=== PATIENT | female | born 1975 | race Caucasian/White ===

== ENCOUNTER 2019-12-21 12:35 | Outpatient (CLI) | payer BC, SELFPAY ==
--- NOTE | ~2019-12-21 | CT_ITS ---
EXAMINATION: CT abdomen pelvis w con EXAM DATE: 12/21/2019 13:19 INDICATION: Lower abdominal pain. TECHNIQUE: Spiral CT of the abdomen and pelvis was performed following intravenous injection of 100 m L Omnipaque 350. Axial, coronal and sagittal images were reviewed. The dose-length product (DLP) fo r this examination was 776.21 mGy-cm. The exposure was tailored according to patient size (auto mA e xposure control), and iterative reconstruction (ASIR) was used as additional dose reduction technique . There is no prior study for comparison. FINDINGS: The liver, spleen, adrenal glands and pancreas are unremarkable. There are cholecystectomy clips. Portal and splenic veins are patent. Kidneys enhance symmetrically. There is no hydronephr osis. The uterus is not identified and has likely been surgically resected. The bladder is unremar kable. There is no retroperitoneal or pelvic lymphadenopathy. Small umbilical fat-containing herni a. The appendix is normal. There is small to moderate-sized gastroesophageal hiatal hernia. There is e xpected amount of colonic stool. No free intraperitoneal gas. The heart is normal in size. There are no pericardial or pleural effusions. The lung bases are unremarkable. The bones are unremarkab le. IMPRESSION: 1. No acute intra-abdominal findings. 2. Small to moderate hiatal hernia. 3. Small umbilical fat-containing hernia. Reviewed, dictated and finalized at location B.
== END 2019-12-21 12:36 | disposition home or self-care (01) ==
LOC: ANHIMG 12:41
PROVIDERS: PCP Internal Medicine; Visit Provider Internal Medicine
DX: K44.9 Diaphragmatic hernia without obstruction or gangrene (principal); K42.9 Umbilical hernia without obstruction or gangrene
CPT/HCPCS: 74177; Q9967

== ENCOUNTER 2021-02-26 09:00 | Outpatient (RCR) | payer BC, SELFPAY ==
--- NOTE | 2021-01-21 11:33 | PTOPEVAL ---
PHYSICAL THERAPY EVALUATION AND PLAN OF CARE 01-21-21 Thank you for referring Tiesha Byrnes to [facility].? She is scheduled to be seen for therapy? 3 x/week for 5 weeks. Please review, sign, date and return this plan of care DORENE. I agree with and certify that the following plan of care is medically necessary. Referring Physician Date Attending Provider: Hermes Johnson MD PT Outpatient Evaluation Document 01/21/21 10:25 JORY (Rec: 01/21/21 11:33 JORY [id number]) Outpatient Past Medical History Past Medical History Source of Past Medical History Patient Neurological History Hx Neurological Disorders No Significant History Cardiovascular History Hx Hypercholesterolemia Yes: on meds Respiratory History Hx Respiratory Disorders No Significant History Gastrointestinal History Hx Cholecystectomy Yes Genitourinary History Hx Genitourinary Disorders No Significant History Musculoskeletal History Hx Musculoskeletal Disorders No Significant History Endocrine History Hx Endocrine Disorders No Significant History HEENT History Hx HEENT Disorders No Significant History Reproductive History Hx Other Reproductive Disorders Yes: hysterectomy Other History Hx Other Medical Conditions Yes: have had COVID vaccine;wt gain about 20# past yr Evaluation Information Problem Diagnosis lipedema/lymphedema of B LE's Onset few years ago Prior Level of Function Activity Level (Last 3 Months) Occupation working from home, computer work Cooking Yes Cleaning Yes Laundry Yes Shopping Yes Driving Yes Comments Additional Prior Level of Function is doing all home, work and Comments self care tasks; active lifestyle-- likes to boat, camp, be outdoors; have started rebounding about one week ago, doing 10 minutes at time; Pain Assessment Timing of Pain Assessment Timing of Pain Assessment Assessment Pain Scale Pain Scale Used Numeric (1 - 10) Self Report Pain Assessment Bilateral Leg(s) Reported Pain Level 6 Pain Description Aching,Heavy Pain Frequency Continuous Lowest Pain Intensity 6 Greatest Pain Intensity 6 Pain Score Pain Score 6: Self Report Interventions Used Interventions Used By Clinicians Education Lower Extremity Range of Motion General Lower Extremity Range of Motion Reason Not Measured WNL/Left,WNL/Right Lower Extremity Muscle Strengt
--- NOTE | 2021-02-26 09:48 | PTOPEVAL ---
PHYSICAL THERAPY RE-EVALUATION AND UPDATED PLAN OF CARE 02-26-21 Refer to the clinical summary below, for her status today, compared to the initial evaluation. The goals have been achieved. Education has been completed--she is independent with her home exercises and self manual lymph drainage. She has a home intermittent compression pump/ Flexitouch unit. The custom panty hose compression garment has not arrived yet. She is currently wearing R and L thigh high compression garments, 20-30 mmHg. The plan of treatment is set for 0-1x/week for 4 weeks. When the custom garment arrives, she is to contact PT for an additional appointment if there are any concerns or issues with it. Or she may call if there are any questions that can be addressed on the phone. Thank you for referring Tiesha Byrnes to [facility] [place] [facility] [place] Please review, sign, date and return this updated plan of care DORENE. I agree with and certify that the following plan of care is medically necessary. Referring Physician Date Attending Provider: Hermes Johnson MD Document 02/26/21 09:00 JORY (Rec: 02/26/21 09:37 JORY [id number]) Assessment Status Re-evaluation Subjective Information Tiesha reports: expect her Query Text:As Reported By Patient/ custom garment to be here in Family the next few days or so; using home pump daily and doing self massage; using thigh high garments on legs; doing home exercises, rebounder and exercise bicycle; feel like legs are less swollen; to have vein surgery in May on both legs; Pain Assessment Timing of Pain Assessment Timing of Pain Assessment Assessment Pain Scale Pain Scale Used Numeric (1 - 10) Self Report Pain Assessment Bilateral Leg(s) Reported Pain Level 3 Pain Description Heavy Pain Frequency Chronic,Continuous Lowest Pain Intensity 3 Greatest Pain Intensity 3 Pain Score Pain Score 3: Self Report Interventions Used Interventions Used By Clinicians Education Lymphedema Evaluation Skin Inspection Location Left Lower Extremity,Right Lower Extremity Skin Observations Lipedema Palpation Findings Warm Skin Temperature,Non- Pitting Edema Tissue Texture Normal Lymphedema Stage I Skin Inspection Comment both legs with small, light bruising throughout legs; no edema over dorsum of feet-- has been wearing tennis shoes with laces to have some compression; skin moist and
--- NOTE | 2021-04-01 13:21 | PCPTNOTE ---
PHYSICAL THERAPY DISCHARGE 04-01-21 Attending Provider: Hermes Johnson MD Patient:Tiesha Byrnes Date of :1975 Mrs. Byrnes has not called for any further needs since the reevaluation on 02/26/2021, therefore she will be discharged at this time. Refer to that report for her discharge status. Thank you for referring Tiesha to [facility]. Please review, sign, date and return this discharge summary DORENE. I have been updated about the patient's current status and I agree with discharge from the above service at this time. Referring Physician Date
== END 2021-04-07 11:15 | disposition home or self-care (01) ==
LOC: ANHPT 09:00
PROVIDERS: PCP Internal Medicine
DX: E88.2 Lipomatosis, not elsewhere classified (principal)
CPT/HCPCS: 29581; 97110; 97140; 97161

== ENCOUNTER 2021-07-15 01:17 | Day surgery (SDC) | payer BC, SELFPAY ==
[2021-07-04 13:31] VITALS: BMI 34.8
[2021-07-15 08:36] VITALS: BP 125/82; PULSE 96; RESP 20; TEMP 36.8; O2SAT 98; BMI 34.1
[2021-07-15] MEDS: LACTATED RINGERS 1,000 ML 150 ML IV CONT (08:42)
--- NOTE | 2021-07-15 09:08 | WPDGICN ---
Assessment and Plan Assessment and plan (1) Encounter for screening colonoscopy: Code(s): Z12.11 - Encounter for screening for malignant neoplasm of colon Status: Acute Assessment and Plan: Patient presents for neoplasia screening. She appears to be at average risk for colon polyps. Further recommendations will be given after endoscopy. GI Consult Note Consult date/time: 07/15/21 09:08 HPI: Tiesha Byrnes is a 46 year old female Presents for screening colonoscopy. Patient's current weight appetite bowel movements are normal. She denies abdominal pain. She has had bleeding. Family history noncontributory. Review of Systems Review of Systems: All systems reviewed & are unremarkable except as noted in HPI and below PMFSH Family History Family History (Updated 11/29/15 @ 23:21 by DOCTOR UNKNOWN) Mother Family history of osteoporosis Patient's mother is in good health Family history of malignant neoplasm of ovary, Onset Age: 36 Family history of lupus erythematosus Grandparent Hypertension Father Family history of eczema Patient's father is in good health Sibling Patient's sister is in good health Family history of allergic disorder Social History Social History Smoking status: Never smoker Alcohol intake: never Substance use: never Living arrangements: with family Spiritual care concerns: No Meds Home Medications and Allergies Home Medications Medication Instructions Recorded Confirmed Type L.acidop,madeleine,lac,rha-B.lac,mariam 1 cap PO DAILY 07/04/21 07/04/21 History [Advanced Probiotic] cetirizine [Zyrtec] 5 mg PO DAILY 07/04/21 07/04/21 History cranberry fruit concentrate [Azo 250 mg PO TID 07/04/21 07/04/21 History Cranberry] rosuvastatin 20 mg PO DAILY 07/04/21 07/04/21 History Allergies Allergy/AdvReac Type Severity Reaction Status Date / Time No Known Allergies Allergy Unknown Verified 07/15/21 08:34 Vital Signs Vital Signs - 24 hr 07/15/21 08:36 Temperature 98.3 F Pulse Rate 96 Respiratory Rate 20 Blood Pressure 125/82 Pulse Oximetry 98 Exam Narrative: Physical exam reveals patient to be alert. Vital signs stable. HEENT exam is unremarkable. Patient is anicteric. Lungs are clear to auscultation and percussion. Heart is without murmur or extra sounds. Abdomen bowel sounds present soft nontender with no organomegaly. Digital external rectal exam normal.
--- NOTE | 2021-07-15 09:44 | WPDANESEPPF ---
Anes - Initial Pre Proc Eval Procedure: Operation Date: 07/15/21 10:00 Proposed Procedures p Screening Colonoscopy - Abelino Celaya MD Date/Time: 07/15/21 09:44 Surgeon: Abelino Celaya MD Pre Op Diagnosis: neoplasm screening Patient Data Age: 46 Gender: F Height: 1.65 m Weight: 93 kg Last Vital Signs Temp 98.3 F 07/15/21 08:36 Pulse 96 07/15/21 08:36 Resp 20 07/15/21 08:36 BP 125/82 07/15/21 08:36 Pulse Ox 98 07/15/21 08:36 Allergies Allergy/AdvReac Type Severity Reaction Status Date / Time No Known Allergies Allergy Unknown Verified 07/15/21 08:34 Home Medications Medication Instructions Recorded Confirmed Type L.acidop,madeleine,lac,rha-B.lac,mariam 1 cap PO DAILY 07/04/21 07/04/21 History [Advanced Probiotic] cetirizine [Zyrtec] 5 mg PO DAILY 07/04/21 07/04/21 History cranberry fruit concentrate [Azo 250 mg PO TID 07/04/21 07/04/21 History Cranberry] rosuvastatin 20 mg PO DAILY 07/04/21 07/04/21 History Patient hx anesthesia problems: none Family hx anesthesia problems: none Results Review: All pre-operative results and documents have been reviewed as part of the pre-operative evaluation. [facility] Family History Family History (Updated 11/29/15 @ 23:21 by DOCTOR UNKNOWN) Mother Family history of osteoporosis Patient's mother is in good health Family history of malignant neoplasm of ovary, Onset Age: 36 Family history of lupus erythematosus Grandparent Hypertension Father Family history of eczema Patient's father is in good health Sibling Patient's sister is in good health Family history of allergic disorder Social History Social History Smoking status: Never smoker Alcohol intake: never Substance use: never Living arrangements: with family Spiritual care concerns: No Anes - Eval Final PreProcedure Day of Procedure 07/15/21 09:44 Results Review: All pre-operative results and documents have been reviewed as part of the pre-operative evaluation. Informed Consent: The patient's anesthetic plan and its attendant risks and benefits were discussed with the patient/family/POA. Questions were solicited and answers provided to the satisfaction of the patient/family/POA.
[2021-07-15 10:04] VITALS: BP 112/65; PULSE 78; RESP 17; O2SAT 100
[2021-07-15 10:14] VITALS: BP 113/69; PULSE 67; RESP 14; O2SAT 100
[2021-07-15 10:24] VITALS: BP 120/81; PULSE 59; RESP 20; O2SAT 100
== END 2021-07-15 10:28 | disposition home or self-care (01) ==
PROVIDERS: PCP Internal Medicine; Visit Provider Internal Medicine Gastroenterology
PROC: 0DJD8ZZ Inspection of Lower Intestinal Tract, Via Natural or Artificial Opening Endoscopic (ICD-10-PCS; CPT 45378; principal; 2021-07-15 10:00)
DX: Z12.11 Encounter for screening for malignant neoplasm of colon (principal); K64.8 Other hemorrhoids
CPT/HCPCS: 45378; J2704; J7120

== ENCOUNTER 2023-06-22 08:57 | Outpatient (CLI) | payer BC, SELFPAY ==
[2023-06-25 04:07] LABS: FSH 9.5 mIU/mL (***)
== END 2023-06-22 08:58 | disposition home or self-care (01) ==
LOC: ANHLAB 09:01
PROVIDERS: PCP Internal Medicine; Visit Provider Obstetrics & Gynecology
DX: R23.2 Flushing (principal); R45.86 Emotional lability; R68.89 Other general symptoms and signs
CPT/HCPCS: 36415; 83001

== ENCOUNTER 2023-07-07 09:59 | Outpatient (CLI) | payer BC, SELFPAY ==
[2023-07-13 20:52] LABS: Estradiol, Ultrasensitive 107 pg/mL
== END 2023-07-07 10:00 | disposition home or self-care (01) ==
LOC: ANHLAB 10:00
PROVIDERS: PCP Internal Medicine; Visit Provider Obstetrics & Gynecology
DX: R23.2 Flushing (principal); R45.86 Emotional lability; R68.89 Other general symptoms and signs
CPT/HCPCS: 36415; 82670

== ENCOUNTER 2023-08-06 09:39 | Outpatient (CLI) | payer BC, SELFPAY ==
[2023-08-06 10:41] LABS: Creatinine Urine 33.4 mg/dL; Total Protein Urine Random 12 mg/dL; Ur Ttl Prot Creatinine Ratio 0.36 mg/mg (0-0.20)
[2023-08-06 10:56] LABS: Albumin Level 4.1 g/dL (3.5-5.1); Anion Gap 5 mmol/L (4-12); Blood Urea Nitrogen 12 mg/dL (7-17); Carbon Dioxide 26 mmol/L (22-30); Chloride 104 mmol/L (98-107); Estimated Glomerular Filt Rate > 60; Glucose 90 mg/dL (65-110); Phosphorus 2.9 mg/dL (2.5-4.5); Potassium 3.7 mmol/L (3.4-5.0); Sodium 135 mmol/L (137-145)
[2023-08-06 11:57] LABS: Complement C3 123 mg/dL (88-165)
[2023-08-10 10:35] LABS: Anti Glomerular Basement Memb <1.0 AI (<1.0)
[2023-08-10 10:48] LABS: Albumin 3.7 g/dL (3.8-4.8); Alpha 1 Globulin 0.3 g/dL (0.2-0.3); Alpha 2 Globulin 0.8 g/dL (0.5-0.9); Beta 1 Globulin 0.4 g/dL (0.4-0.6); Gamma Globulin 0.8 g/dL (0.8-1.7); Protein, Total 6.3 g/dL (6.1-8.1)
[2023-08-10 21:51] LABS: ANCA Screen Negative (Negative)
[2023-08-11 13:55] LABS: Creatinine, Random Urine 36 mg/dL (20-275); Total Protein/Creatinine Ratio 139 mg/g creat (24-184)
[2023-08-12 19:04] LABS: Anti Nuclear Antibody Pattern Nuclear, Speckled
== END 2023-08-06 09:40 | disposition home or self-care (01) ==
LOC: ANHLAB 09:40
PROVIDERS: PCP Internal Medicine; Visit Provider Internal Medicine Nephrology
DX: R79.89 Other specified abnormal findings of blood chemistry (principal)
CPT/HCPCS: 36415; 80069; 82570; 83520; 84155; 84156; 84165; 84166; 86036; 86038; 86039; 86160; 86225

== ENCOUNTER 2023-10-07 10:10 | Outpatient (CLI) | payer BC, SELFPAY ==
--- NOTE | ~2023-10-07 | XR_ITS ---
Left Knee Technique: AP and lateral views were obtained. Clinical History: Arthritis Findings: No fracture or dislocation is seen. Osseous alignment is anatomic. Minimal medial joint jt e spurring noted. Soft tissues are unremarkable. No joint effusion is seen. Impression: Minimal degenerative spurring, as above. Reviewed, dictated and finalized at location . Impression: Minimal degenerative spurring, as above.
--- NOTE | ~2023-10-07 | XR_ITS ---
Right Knee Technique: AP and lateral views were obtained. Clinical History: Arthritis Findings: No fracture or dislocation is seen. Osseous alignment is anatomic. Joint spaces are preserv ed without degenerative or erosive change. Nonspecific soft tissue calcifications are present at the anteromedial aspect of the proximal calf. No joint effusion is seen. Impression: No osseous or articular abnormality. Nonspecific soft tissue calcifications at the anteromedial aspect of the proximal calf. Correlate cli nically for underlying mass lesion. Consider additional dedicated imaging and physical examination to further evaluate. Reviewed, dictated and finalized at location M. Impression: No osseous or articular abnormality. Nonspecific soft tissue calcifications at the anteromedial aspect of the proxim al calf. Correlate clinically for underlying mass lesion. Consider additional d edicated imaging and physical examination to further evaluate.
--- NOTE | ~2023-10-07 | XR_ITS ---
Left ankle Technique: AP and lateral views were obtained. Clinical History: Arthritis Findings: No acute fracture or dislocation is seen. Osseous alignment is anatomic. Ankle mortise and other visualized joint spaces are preserved. Soft tissues are otherwise unremarkable. Impression: Unremarkable left ankle. Reviewed, dictated and finalized at location . Impression: Unremarkable left ankle.
--- NOTE | ~2023-10-07 | XR_ITS ---
Right Shoulder Technique: AP and axillary views were obtained. Clinical History: Arthritis Findings: No fracture or dislocation is seen. Osseous alignment is anatomic. The glenohumeral and acr omioclavicular joint spaces are preserved. Soft tissues are unremarkable. Impression: Unremarkable right shoulder radiographs. Reviewed, dictated and finalized at [facility]. Impression: Unremarkable right shoulder radiographs.
--- NOTE | ~2023-10-07 | XR_ITS ---
AP and lateral views of the right hip Clinical history: Pain Findings: No acute fracture or dislocation is seen. Osseous alignment is anatomic. The right hip join t is preserved. Soft tissues are unremarkable. Impression: No significant abnormality is seen. Reviewed, dictated and finalized at location . Impression: No significant abnormality is seen.
--- NOTE | ~2023-10-07 | XR_ITS ---
Right elbow Technique: AP and lateral views were obtained. Clinical History: Arthritis Findings: No acute fracture or dislocation is seen. Osseous alignment is anatomic. Joint spaces are p reserved. There is no displacement of the fat pads, and soft tissues are unremarkable. Impression: Unremarkable radiographs. Reviewed, dictated and finalized at location . Impression: Unremarkable radiographs.
--- NOTE | ~2023-10-07 | XR_ITS ---
Left Hand Technique: PA and lateral views were obtained. Clinical History: Arthritis Findings: No acute fracture or dislocation is seen. Osseous alignment is anatomic. Joint spaces are p reserved. Soft tissues are unremarkable. Impression: Unremarkable left hand. Reviewed, dictated and finalized at location M. Impression: Unremarkable left hand.
--- NOTE | ~2023-10-07 | XR_ITS ---
AP and lateral views of the left hip Clinical history: Pain Findings: No acute fracture or dislocation is seen. Osseous alignment is anatomic. Left hip joint is preserved. Soft tissues are unremarkable. Impression: No significant abnormality is seen. Reviewed, dictated and finalized at location . Impression: No significant abnormality is seen.
--- NOTE | ~2023-10-07 | XR_ITS ---
Right ankle Technique: AP and lateral views were obtained. Clinical History: Arthritis Findings: No acute fracture or dislocation is seen. Osseous alignment is anatomic. Ankle mortise and other visualized joint spaces are preserved. Soft tissues are otherwise unremarkable. Impression: Unremarkable right ankle. Reviewed, dictated and finalized at location . Impression: Unremarkable right ankle.
--- NOTE | ~2023-10-07 | XR_ITS ---
Left Shoulder Technique: AP and axillary views were obtained. Clinical History: Arthritis Findings: No fracture or dislocation is seen. Osseous alignment is anatomic. The glenohumeral and acr omioclavicular joint spaces are preserved. Soft tissues are unremarkable. Impression: Unremarkable left shoulder radiographs. Reviewed, dictated and finalized at [facility]. Impression: Unremarkable left shoulder radiographs.
--- NOTE | ~2023-10-07 | XR_ITS ---
Left wrist Technique: PA and lateral views were obtained. Clinical History: Arthritis Findings: No acute fracture or dislocation is seen. Osseous alignment is anatomic. Joint spaces are p reserved. Soft tissues are unremarkable. Impression: Unremarkable left wrist radiographs. Reviewed, dictated and finalized at location M. Impression: Unremarkable left wrist radiographs.
--- NOTE | ~2023-10-07 | XR_ITS ---
Right foot Technique: AP and lateral views were obtained. Clinical History: Arthritis Findings: No acute fracture or dislocation is seen. Osseous alignment is anatomic. Joint spaces are p reserved without erosive or degenerative change. Soft tissues are unremarkable. Impression: Unremarkable right foot radiographs. Reviewed, dictated and finalized at location . Impression: Unremarkable right foot radiographs.
--- NOTE | ~2023-10-07 | XR_ITS ---
Right wrist Technique: PA and lateral views were obtained. Clinical History: Arthritis Findings: No acute fracture or dislocation is seen. Osseous alignment is anatomic. Joint spaces are p reserved. Soft tissues are unremarkable. Impression: Unremarkable right wrist radiographs. Reviewed, dictated and finalized at location M. Impression: Unremarkable right wrist radiographs.
--- NOTE | ~2023-10-07 | XR_ITS ---
Right Hand Technique: PA and lateral views were obtained. Clinical History: Arthritis Findings: No acute fracture or dislocation is seen. Osseous alignment is anatomic. Joint spaces are p reserved. Soft tissues are unremarkable. Impression: Unremarkable right hand. Reviewed, dictated and finalized at location M. Impression: Unremarkable right hand.
--- NOTE | ~2023-10-07 | XR_ITS ---
Left foot Technique: AP and lateral views were obtained. Clinical History: Arthritis Findings: No acute fracture or dislocation is seen. Osseous alignment is anatomic. Joint spaces are p reserved without erosive or degenerative change. Soft tissues are unremarkable. Impression: Unremarkable left foot radiographs. Reviewed, dictated and finalized at location . Impression: Unremarkable left foot radiographs.
== END 2023-10-07 10:11 | disposition home or self-care (01) ==
LOC: ANHIMG 10:12
PROVIDERS: PCP Internal Medicine; Visit Provider Internal Medicine Rheumatology
DX: M19.90 Unspecified osteoarthritis, unspecified site (principal)
CPT/HCPCS: 73030; 73070; 73100; 73120; 73502; 73560; 73600; 73620

== ENCOUNTER 2023-12-22 13:24 | Outpatient (CLI) | payer BC, SELFPAY ==
--- NOTE | ~2023-12-22 | MR_ITS ---
EXAMINATION: MR lower leg RT wo con DATE: 12/22/2023 14:07 INDICATION: Mass/lump at the medial and the right lower leg TECHNIQUE: Magnetic resonance imaging (MRI) of the right lower leg was performed without intravenous contrast. A marker was placed over the mass. Sequences included axial, sagittal and coronal T1-weigh gilbert FSE and fluid sensitive FSE STIR. COMPARISON: 12/16/2023 FINDINGS: There is normal bone marrow signal throughout. There is subtle T1 hypointense fat signal within the p osterior regions of the topic ossification in the subcutaneous tissues immediately underlying the mar ker indicating the region of concern. The low signal intensity curvilinear peripheral calcification i s better appreciated on the prior radiographs. No other abnormal masses identified. Of a symmetric pa ttern of mild subcutaneous edema in both lower legs with distal predominance. Normal symmetric appear ance to the musculature in the bilateral lower legs. IMPRESSION: 1. Palpable abnormality of concern corresponds to heterotopic ossification in the subcutaneous fat wh ich could be sequela of prior trauma or fat necrosis. Reviewed, dictated and finalized at location A. IMPRESSION: 1. Palpable abnormality of concern corresponds to heterotopic ossification in t he subcutaneous fat which could be sequela of prior trauma or fat necrosis.
== END 2023-12-22 13:25 ==
LOC: GOSHIMG 13:25
PROVIDERS: PCP Orthopaedic Surgery; Visit Provider Orthopaedic Surgery
DX: R22.41 Localized swelling, mass and lump, right lower limb (principal)
CPT/HCPCS: 73718

== ENCOUNTER 2024-12-26 00:40 | Day surgery (SDC) | payer BC, SELFPAY ==
--- OUTSIDE RECORDS SUMMARY | 2024-06-15 04:40 | XMS_ITS ---
Author Organization [employer] [facility] Address [address] [address] Care Team Providers Care Assistant Merchandise Manager Name Role Phone CT ORTIZ Primary Care Provider [phone] Aleena Keys [phone] REASON FOR VISIT DANIEL Encounters Encounter Location Date Provider Diagnosis [facility] - Aleena Barlow [address] [place] [address] 06/15/2024 Aleena Barlow Plan Of Treatment No Information Progress Notes * Tiesha HERNANDEZ SDOB: [birth year] (49 yo F)Acc No.[id number]:06/15/2024 Progress Notes Patient: Tiesha LAKE Provider: Ronnie Barlow MD :1975 A ge:49 Y S ex:Female Date:06/15/2024 Address:[address] [place], [place] [id number] Pcp:CT ORTIZ Subjective: * Chief Complaints: * 1 . DANIEL. * Medical History: Objective: * Vitals: Assessment: Plan: * Treatment: * Billing Information: * Visit Code: * Procedure Codes: * Electronic signature of Donald Barlow MD on 12/26/2024 at 12:43 AM CDT Sign off status: Pending * Provider: Ronnie Barlow MD Date: 06/15/2024 Generated for Chucho mathews/Tima/eTransmitting on: 12/26/2024 12:43 AM CDT
[2024-12-11 14:06] VITALS: BMI 24.2
--- OUTSIDE RECORDS SUMMARY | 2024-12-25 08:20 | XMS_ITS ---
Author Organization [facility] Address [address] [facility] [place] [id number] Care Team Providers Care Yarn Wrapper Name Role Phone Aleena Barlow Nicki [phone] REASON FOR VISIT 1 month f/u Medications Medication SIG (Take, Route, Frequency, Duration) Notes Start Date End Date Status Calcium Carbonate 1250 mg tablet 1 tab(s) orally 3 times a day x2 daily *Pick strength-form from [employer] for eRX* Active ZyrTEC 10 mg tablet 1 tab(s) orally once a day *Pick strength-form from [facility] for eRX* Active Tolterodine Tartrate 4 mg capsule, extended release 1 cap(s) orally once a day *Pick strength-form from [facility] for eRX* Active Align 4 mg capsule 1 cap(s) orally once a day Active Vitamin E *Pick strength-form from [facility] for eRX* Active Ramelteon 8 MG Tablet 1 tablet at bedtim e as needed Orally Once a day; Duration: 30 days 10/27/2024 Active Estradiol 0.5 mg tablet 1 tab(s) orally once a day Active Belsomra 10 MG Tablet 1 tablet at bedtim e as needed Orally Once a day; Duration: 30 days 12/05/2024 Active DULoxetine HCl 60 mg delayed release capsule 1 cap(s) orally once a day *Pick strength-form from [facility] for eRX* Active Rosuvastatin Calcium 20 mg tablet 1 tab(s) orally once a day Active Vital Signs Blood pressure systolic 107 mm Hg 12/26/19 25 Blood pressure diastolic 70 mm Hg 025 Heart Rate 68 /min 12/25/2024 Height 65 in 12/25/2024 Weight 148.4 lbs 12/25/2024 BMI 24.69 kg/m2 12/25/2024 Oximetry 98 % 12/25/2024 Height-cm 165.1 cm 12/25/2024 Weight-kg 67.31 kg 12/25/2024 Encounters Encounter Location Date Provider Diagnosis [facility] [address] Barlow [address] [place] [address] 12/25/2024 Aleena Barlow Overweight E66.3 an d Dietary counseling and surveillance Z71.3 Assessments Encounter Date Diagnosis (ICD Code) Assessment Notes Treatment Notes Treatment Clinical Notes Section Notes 12/25/2024 Overweight (ICD-10 - E66.3) 12/25/2024 Dietary counseling and surveillance (ICD-10 - Z71.3) Spent 15 minutes preventative counseling patient on dietary recommendations and changes in setting of hyperglycemia- need to restrict refined sugars and processed foods and incorporate up to 150 minutes of moderate level activity weekly. 12/25/2024 Other Tiesha, a female patient, presents for follow-up of weight loss management and medication review. OverweightAssessmen t: Patient has been successfully losing weight with the current treatment plan. Current weight is 148 lbs, down 4 pounds from the previous visit when weight was 150 lbs. Patient's goal weight is approximately 145 lbs. Patient reports adherence to the medication regimen and denies any adverse effects such as nausea, vomiting, or diarrhea. Patient confirms adequate protein and fiber intake, consumption of fruits and vegetables, and sufficient water intake. No reported issues with blood sugar levels.Plan:- Continue trizepatide 10 mg (frequency and route not specified)- Continue current dietary plan with emphasis on protein, fiber, fruits, and vegetables- Maintain adequate hydration- Consider tapering medication once target weight of 145 lbs is reached- Discuss potential for dose reduction to 7.5 mg every 2 weeks in the future- Advised to take a dose if food cravings return- Follow up as needed Menopausal symptomsAssessment: Patient is currently on estradiol for management of menopausal symptoms. Hot flashes are reported to be well-controlled, and patient denies vaginal dryness.Plan:- Continue current estradiol regimen (dose and frequency not specified) HyperlipidemiaAsses sment: Patient is currently managed on rosuvastatin for hyperlipidemia. No specific concerns or symptoms reported.Plan:- Continue rosuvastatin (dose and frequency not specified)- Consider laboratory testing at the end of the year or in spring, unless symptoms develop- Follow up annually or sooner if new symptoms arise Spent 15 minutes preparing to see the patient (ex review of tests/chart), obtaining and / or reviewing separately obtained history, performing a medically appropriate examination and/or evaluation, counseling and educating the patient/family/zoo caretaker, ordering medications, tests, or procedures, referring and communicating with other health daycare provider, documenting clinical information in the electronic or other health record, independently interpreting results and communicating results to the patient/family/zoo caretaker and care coordinating patient plan. Patient alert and oriented x 4 and aware of discussion noted above and in agreeance to plan in management of weight management. Plan Of Treatment Treatment Notes Assessment Notes Dietary counseling and surveillance Spent 15 minutes preventative counseling patient on dietary recommendations and changes in setting of hyperglycemia- need to restrict refined sugars and processed foods and incorporate up to 150 minutes of moderate level activity weekly. Other Tiesha, a female patient, presents for follow-up of weight loss management and medication review. OverweightAssessment: Patient has been successfully losing weight with the current treatment plan. Current weight is 148 lbs, down 4 pounds from the previous visit when weight was 150 lbs. Patient's goal weight is approximately 145 lbs. Patient reports adherence to the medication regimen and denies any adverse effects such as nausea, vomiting, or diarrhea. Patient confirms adequate protein and fiber intake, consumption of fruits and vegetables, and sufficient water intake. No reported issues with blood sugar levels.Plan:- Continue trizepatide 10 mg (frequency and route not specified)- Continue current dietary plan with emphasis on protein, fiber, fruits, and vegetables- Maintain adequate hydration- Consider tapering medication once target weight of 145 lbs is reached- Discuss potential for dose reduction to 7.5 mg every 2 weeks in the future- Advised to take a dose if food cravings return- Follow up as needed Menopausal symptomsAssessment: Patient is currently on estradiol for management of menopausal symptoms. Hot flashes are reported to be well-controlled, and patient denies vaginal dryness.Plan:- Continue current estradiol regimen (dose and frequency not specified) HyperlipidemiaAssessment: Patient is currently managed on rosuvastatin for hyperlipidemia. No specific concerns or symptoms reported.Plan:- Continue rosuvastatin (dose and frequency not specified)- Consider laboratory testing at the end of the year or in spring, unless symptoms develop- Follow up annually or sooner if new symptoms arise Spent 15 minutes preparing to see the patient (ex review of tests/chart), obtaining and / or reviewing separately obtained history, performing a medically appropriate examination and/or evaluation, counseling and educating the patient/family/caregiver, ordering medications, tests, or procedures, referring and communicating with other health daycare provider, documenting clinical information in the electronic or other health record, independently interpreting results and communicating results to the patient/family/caregiver and care coordinating patient plan. Patient alert and oriented x 4 and aware of discussion noted above and in agreeance to plan in management of weight management. Next Appt Details Follow Up: 4 Weeks, Reason: labwork Provider Name:Aleena Barlow, 11:20:00 AM, [address] [place] [address], [phone], History and Physical Notes * HPI (History of Present Illness) Category Sub-Category Detail Notes Category Not es History of Present Illness Tiesha presented for weight loss management follow-up. She has lost an additional 4 pounds, now weighing 148 pounds (goal: 145 pounds). She reports success with tirzepatide 10 mg without side effects and maintains a diet rich in protein, fiber, fruits, and vegetables. Her medical history includes menopause (managed with estradiol, which controls hot flashes) and hypercholesterolemia (treated with rosuvastatin). The plan includes continuing current medications, considering tirzepatide dose reduction to 7.5 mg when target weight is reached, and laboratory testing for cholesterol in spring. Chief Complaint Follow-up for weight loss management History of Present Illness Tiesha is a patient who presents for follow-up of weight loss management. She reports continued success with her weight loss efforts, having lost an additional 4 pounds since her last visit. Her current weight is 148 pounds, down from 150 pounds previously. Tiesha states her target weight goal is around 145 pounds. Tiesha is currently taking a medication (likely a weight loss medication) at a dose of 10 mg. She denies any side effects from this medication, specifically reporting no nausea, vomiting, or diarrhea. She confirms she is eating adequately, focusing on protein, fiber, fruits, and vegetables. Tiesha also reports drinking plenty of water. She does not feel that her blood sugar levels are fluctuating abnormally. Regarding other health concerns, Tiesha reports that her hot flashes are well-controlled with estradiol. She denies any issues with vaginal dryness. Tiesha is also taking rosuvastatin for cholesterol management. Medical History - Menopause (patient is on estradiol for hot flashes) - Hypercholesterolemia (patient is on rosuvastatin) Medications and Supplements - Trizepatide 10 mg - Taking as prescribed - Helping with weight loss - No nausea, vomiting, or bowel issues reported - Estradiol - Controlling hot flashes - No vaginal dryness reported - Rosuvastatin - Taking for cholesterol Social History - Diet: Patient reports eating protein, fiber, fruits, and vegetables - Exercise: Patient mentions desire to go on a bike ride or be outdoors - Weight Management: Patient has lost weight, current weight is 148 lbs, goal weight is 145 lbs Review of Systems General: Negative for nausea, vomiting. Positive for weight loss. Gastrointestinal: Negative for diarrhea. Endocrine: Negative for blood sugar fluctuations. Genitourinary: Negative for vaginal dryness. Examination Category Sub-Category Detail Notes Category Not es Physical Exam SPC General: no acute distress Eyes: pupil equal and reac tive to light, conjunctiva pink Ear, Nose, and Throat: No erythema poste rior Pharynx,, tympanic membrane normal Neck/Thyroid: neck supple, no thyr oid enlargement noticed Lymphatics: no palpable lymph no de in neck Cardiac: regular, rate and rh ythm Lung: clear to auscultatio n Abdomen: soft, non tender, no n distended, bowel sounds present Musculoskeletal normal range of sandra on Extremities: no edema Neurologic: alert oriented Progress Notes * Tiesha HERNANDEZ SDOB: [birth year] (49 yo F)Acc No.[id number]:12/25/2024 Patient: Tiesha Valera Provider: Ronnie Barlow MD :[id number] A ge:49 Y S ex:Female Date:12/25/2024 Address:[address] [place], [place] [id number] Subjective: * Chief Complaints: * 1 . 1 month f/u. * HPI: H istory of Present Illness: Tiesha presented for weight loss management follow-up. She has lost an additional 4 pounds, now weighing 148 pounds (goal: 145 pounds). She reports success with tirzepatide 10 mg without side effects and maintains a diet rich in protein, fiber, fruits, and vegetables. Her medical history includes menopause (managed with estradiol, which controls hot flashes) and hypercholesterolemia (treated with rosuvastatin). The plan includes continuing current medications, considering tirzepatide dose reduction to 7.5 mg when target weight is reached, and laboratory testing for cholesterol in spring. Chief Complaint Follow-up for weight loss management History of Present Illness Tiesha is a patient who presents for follow-up of weight loss management. She reports continued success with her weight loss efforts, having lost an additional 4 pounds since her last visit. Her current weight is 148 pounds, down from 150 pounds previously. Tiesha states her target weight goal is around 145 pounds. Tiesha is currently taking a medication (likely a weight loss medication) at a dose of 10 mg. She denies any side effects from this medication, specifically reporting no nausea, vomiting, or diarrhea. She confirms she is eating adequately, focusing on protein, fiber, fruits, and vegetables. Tiesha also reports drinking plenty of water. She does not feel that her blood sugar levels are fluctuating abnormally. Regarding other health concerns, Tiesha reports that her hot flashes are well-controlled with estradiol. She denies any issues with vaginal dryness. Tiesha is also taking rosuvastatin for cholesterol management. Medical History - Menopause (patient is on estradiol for hot flashes) - Hypercholesterolemia (patient is on rosuvastatin) Medications and Supplements - Trizepatide 10 mg - Taking as prescribed - Helping with weight loss - No nausea, vomiting, or bowel issues reported - Estradiol - Controlling hot flashes - No vaginal dryness reported - Rosuvastatin - Taking for cholesterol Social History - Diet: Patient reports eating protein, fiber, fruits, and vegetables - Exercise: Patient mentions desire to go on a bike ride or be outdoors - Weight Management: Patient has lost weight, current weight is 148 lbs, goal weight is 145 lbs Review of Systems General: Negative for nausea, vomiting. Positive for weight loss. Gastrointestinal: Negative for diarrhea. Endocrine: Negative for blood sugar fluctuations. Genitourinary: Negative for vaginal dryness. * ROS: G eneral: Patient denies A febrile, stable, no acute complaints. N o F ever. E ye: No C hange in vision. E NT: No C hange in hearing. R espiratory: Patient denies s hortness of breath. N o C ough.?No S hortness of breath. C ardiovascular: Patient denies c hest pain. N o C hest pain. N o P alpitations. G astrointestinal: Patient denies a bdominal pain. N o A bdominal pain. N o C onstipation. N o D iarrhea. N o N ausea. N o V omiting. G enitourinary: No F requent urination. N o P ainful urination.? M usculoskeletal: No B ack pain. N o M uscle aches. N o N magno pain. N o P ainful joints. N eurologic: No D izziness. N o H eadache. P sychiatric: No R ecent mood changes. A llergy / Immunology: Patient denies h reji, itching, rash. O phthalmologic: Patient denies b lurry vision, discharge, red eye(s). P atient complains of d ouble vision. N o C hange in vision. E ndocrine: Patient denies c old intolerance, hair loss. n o C old intolerance. n o D izziness. n o E xcessive sweating. n o E xcessive thirst. n o F requent urination. n o H air loss. n o H eat intolerance. n o Hot flashes. n o I rregular menses. n o W eakness. n o W eight loss.? B reast: Patient denies b loody nipple discharge, breast pain, breast swelling. n o B loody nipple discharge. n o B reast lump or mass. n o B reast pain. n o B reast swelling. n o F ever. n o N ipple discharge. n o?Persistent breast pain. n o R ed skin. H ematology: Patient denies e asy bleeding, easy bruising, recent transfusion. G ynecology: Patient denies a bnormal bleeding, hot flashes, pelvic pain. A bnormal bleeding N o. B reast lump N o. B reast pain N o. D ischarge from the breast N o. H eavy bleeding during menses N o. H ot flashes N o. I rregular menses N o. M issed periods N o. P ainful intercourse N o. P ainful menses N o. P elvic pain N o. V aginal bleeding between periods N o. V aginal discharge / itching N o. I nterval between periods is more than 35 days N o. P eriods lasting more than 7 days N o. H aving a period in the past 6 months N o. V aginal odor N o. F H of breast cancer N o. C ontraception N o. S exually active?Yes. S david partner as last visit Y es. P eripheral Vascular: Patient denies b lanching of skin, cold extremities, decreased sensation in extremities. P odiatric: Patient denies a nkle pain, foot pain, sole pain. ? S kin: Patient complains of S KIN TEAR. n o A cne. n o?Changing moles. n o E czema. n o I tching. n o M ole(s). n o R meme. n o S kin cancer. G eneral PWC: no C hange in appetite. n o C hills. n o F atigue. n o F ever. n o H eadache. n o L ightheadedness. n o N ight sweats. n o S leep disturbance. n o W eight gain. n o W eight loss. n o?Weakness. G eneral health is good y es. E NT PWC: no B locked ear(s). n o C hange in hearing. n o?Decreased sense of smell. n o D ifficulty in swallowing. n o D ry mouth. n o E ar pain. n o H oarseness. n o M ass. n o N katlin congestion. n o Nosebleed. n o P ain. n o R inging in the ears. n o S cratchy throat.?no S inus pain. n o S inus problems. n o S neezing. n o S ore throat. n o S wollen glands. R espiratory PWC: no C hest pain. n o C hest tightness. n o C hronic cough. n o C ough. n o H emoptysis. n o P ain with inspiration. n o S hortness of breath. n o S hortness of breath at rest. n o S hortness of breath with exertion. n o S putum production. n o W heezing. C ardiovascular PWC: no C hest pain. n o C hest pain at rest. n o?Chest pain with exertion. n o C laudication. n o C ongenital heart problems. n o C yanosis. n o D ifficulty laying flat. n o D izziness. n o D yspnea on exertion. n o F luid accumulation in the legs. n o H eart murmur. n o H igh blood pressure. n o I rregular heartbeat. n o O rthopnea. n o O ther vascular anomalies. n o P alpitations. n o R heumatic fever. n o S hortness of breath. n o S welling in hands / feet. n o W eakness. n o W eight gain. G astrointestinal PWC: no A bdominal pain. n o B lood in stool. n o?Change in bowel habits. n o C olitis. n o C onstipation. n o D ecreased appetite. n o D iarrhea. n o D ifficulty swallowing. n o E xposure to hepatitis. n o H eartburn. n o H epatitis. n o J aundice. n o N ausea. n o R ectal bleeding. n o S tomach problems. n o V omiting. n o W eight loss. G enitourinary PWC: no A bdominal pain / swelling. n o B lood in the urine. n o D ifficulty urinating. n o F requent urination. n o S tress Incontinence. n o P ainful urination. n o P oor urine output. n o S ymptoms of urinary tract infection. M usculoskeletal PWC: no A rthritis / arthralgia. n o B ack pain. n o?Back problems. n o H istory of gout. n o J oint stiffness. n o L eg cramps. n o L imping gait. n o M uscle aches. n o M uscle spasms. n o N magno pain. n o P ain in shoulder(s). n o P ainful joints. n o S ciatica.?no S wollen joints. n o T rauma to arm(s). n o T rauma to hip(s). n o?Trauma to knee(s). n o T rauma to ankle(s). n o W eakness. N eurologic PWC: no B alance difficulty. n o D ifficulty speaking.?no D izziness. n o F ainting. n o G ait abnormality. n o H eadache.?no I rritability. n o L oss of strength. n o L oss of use of extremity. no L ow back pain. n o M chalo loss. n o P ain. n o P aralysis. n o S eizures. n o S troke. n o T ic. n o T ingling / numbness. n o?Transient loss of vision. n o T remor. P sychiatric PWC: no A nxiety. n o A uditory / visual hallucinations.?no D elusions. n o R ecent mood changes. n o D ifficulty sleeping. n o?Eating disorder. n o L oss of appetite. n o M ental or physical abuse. n o Mood disorder. n o N ervous breakdown. n o S tressors. n o S ubstance abuse. n o S uicidal thoughts. G ynecology PWC: no A bnormal bleeding. n o B reast lump. n o?Breast pain. n o D ischarge from the breast. n o H eavy bleeding during menses.?no H ot flashes. n o I rregular menses. n o M issed periods. n o P ainful intercourse. n o P ainful menses. n o P elvic pain. n o V aginal bleeding between periods. n o V aginal discharge / itching. n o I nterval between periods is more than 35 days. n o P eriods lasting more than 7 days. n o H aving a period in the past 6 months. n o V aginal odor. n o F H of breast cancer. n o C ontraception. n o S exually active. n o S david partner as last visit. B reast PWC: no B loody nipple discharge. n o B reast lump or mass. n o B reast pain. n o B reast swelling. n o F ever. n o N ipple discharge. n o P ersistent breast pain. n o R ed skin. A llergy PWC: no B listering skin. n o C ongestion. n o C ough. n o H reji. n o I tching. n o R meme. n o R ecurrent serious infections. n o S easonal allergies. n o S neezing. n o U nusual reaction to medication(s), food, animals or insects. n o W atery eyes. n o W heezing. E ndocrine PWC: no C old intolerance. n o D izziness. n o E xcessive sweating. n o E xcessive thirst. n o F requent urination. n o H air loss. n o H eat intolerance. n o H ot flashes. n o I rregular menses. n o W eakness. n o W eight loss. G astroenterology PWC: no N ausea. n o H eartburn. n o S tool incontinence. n o R eflux. n o A bdominal pain. n o I ndigestion. n o H emorrhoids. n o H iatal hernia. n o U lcers. n o A nal fissures. n o?Hepatitis. n o G allstones. n o R ed blood after bowel movements. n o V omiting. n o B loating/belching. n o D ifficulty swallowing. n o D iarrhea.?no C onstipation. n o C hange in bowel habits. n o B lood in stool. ? U rology PWC: no D ifficulty urinating. n o B lood in urine. n o U rinary urgency. n o F requent urination. n o U rinary incontinence. n o V oiding dysfunction. n o V ulvodynia. n o D ysparaunia. n o R ecurrent UTI. n o W eak flow. n o D ribbling after urination. n o F requent bladder infections. n o K idney stone. n o K idney disease. n o U rine hesitancy.?no P ainful urination. C onstitutional PWC: no N o weight gain. n o L oss of appetite. n o?Fever. n o W eakness. n o W eight loss. n o N ight sweats. n o N ausea. n o V isual changes. n o C hange in sleep patterns. H +p reviewed y es. n o C hange in activity capacity. F emale Reproductive PWC: no H eavy periods. n o D ysparaunia. n o S exually active. n o P remenstrual syndrome. n o D ysmenorrhea. n o I nfertility. n o F requent yeast infections. n o V aginal itching. n o I ntermenstrual bleeding. n o P ost coital bleeding. n o P ostmenopausal bleeding. n o P elvic pain. n o M enstral cycle. n o V aginal discharge. n o V aginal dryness. n o O varian cysts. No fibroids. n o D ischarge from breast. n o A bn. Bleeding between cycles. n o P ostmenopausal symptoms. n o L oss of sexual interest.?no P ainful sexual intercourse. n o E ndometriosis. n o V aginal warts. n o A bnormal pap. n o I rregular periods. n o A bnormal vaginal discharge. n o H ot flashes. H ematology/lymph PWC: no S wollen glands. n o F atigue. n o L oss of appetite. n o E asy bruising. n o E asy bleeding. n o A nemia. ? * Medications: T rolandog Tolterodine Tartrate 4 mg capsule, extended release 1 cap(s) orally once a day , Notes to Pharmacist: *Pick strength-form from [facility] for [facility]RX*, Taking Vitamin E , Notes to Pharmacist: *[facility] for [facility]*, Taking Align 4 mg capsule 1 cap(s) orally once a day , Taking ZyrTEC 10 mg tablet 1 tab(s) orally once a day , Notes to Pharmacist: *Pick strength-form from [facility] for [facility]*, Taking Calcium Carbonate 1250 mg tablet 1 tab(s) orally 3 times a day , Notes to Pharmacist: x2 daily *[facility]*, Taking Rosuvastatin Calcium 20 mg tablet 1 tab(s) orally once a day , Taking DULoxetine HCl 60 mg delayed release capsule 1 cap(s) orally once a day , Notes to Pharmacist: *Pick strength-form from [facility] for [facility]*, Taking Estradiol 0.5 mg tablet 1 tab(s) orally once a day , Taking Ramelteon 8 MG Tablet 1 tablet at bedtime as needed Orally Once a day , Taking Belsomra 10 MG Tablet 1 tablet at bedtime as needed Orally Once a day Objective: * Vitals: H t: 65 in, Wt:148.4lbs, BMI:24.69Index, BP:107/70mm Hg, HR:68/min, Oxygen sat %:98%, Wt-k.31 kg, Ht-cm: 165.1 cm, Body Surface Area: 1.76. * Examination: P hysical Exam SPC: General: n o acute distress. Eyes: p upil equal and reactive to light, conjunctiva pink.? Ear, Nose, and Throat: N o erythema posterior Pharynx,, tympanic membrane normal. Neck/Thyroid: n magno supple, no thyroid enlargement noticed.? Lymphatics: n o palpable lymph node in neck. Cardiac: r egular, rate and rhythm. Lung: c lear to auscultation. Abdomen: s oft, non tender, non distended, bowel sounds present. Musculoskeletal n ormal range of motion. Extremities: n o edema. Neurologic: a lert oriented. Assessment: * Assessment: 1. O verweight - E66.3 (Primary) 2 . D ietary counseling and surveillance - Z71.3 Plan: * Treatment: 2. O thers Notes: Tiesha, a female patient, presents for follow-up of weight loss management and medication review. OverweightAssessment: Patient has been successfully losing weight with the current treatment plan. Current weight is 148 lbs, down 4 pounds from the previous visit when weight was 150 lbs. Patient's goal weight is approximately 145 lbs. Patient reports adherence to the medication regimen and denies any adverse effects such as nausea, vomiting, or diarrhea. Patient confirms adequate protein and fiber intake, consumption of fruits and vegetables, and sufficient water intake. No reported issues with blood sugar levels.Plan:- Continue trizepatide 10 mg (frequency and route not specified)- Continue current dietary plan with emphasis on protein, fiber, fruits, and vegetables- Maintain adequate hydration- Consider tapering medication once target weight of 145 lbs is reached- Discuss potential for dose reduction to 7.5 mg every 2 weeks in the future- Advised to take a dose if food cravings return- Follow up as needed Menopausal symptomsAssessment: Patient is currently on estradiol for management of menopausal symptoms. Hot flashes are reported to be well-controlled, and patient denies vaginal dryness.Plan:- Continue current estradiol regimen (dose and frequency not specified) HyperlipidemiaAssessment: Patient is currently managed on rosuvastatin for hyperlipidemia. No specific concerns or symptoms reported.Plan:- Continue rosuvastatin (dose and frequency not specified)- Consider laboratory testing at the end of the year or in spring, unless symptoms develop- Follow up annually or sooner if new symptoms arise Spent 15 minutes preparing to see the patient (ex review of tests/chart), obtaining and / or reviewing separately obtained history, performing a medically appropriate examination and/or evaluation, counseling and educating the patient/family/caregiver, ordering medications, tests, or procedures, referring and communicating with other health daycare provider, documenting clinical information in the electronic or other health record, independently interpreting results and communicating results to the patient/family/caregiver and care coordinating patient plan. Patient alert and oriented x 4 and aware of discussion noted above and in agreeance to plan in management of weight management. ? * Procedure Codes: 9 9401 P/M RAC SPECIALIST, INDIV 15 MIN * Follow Up: 4 Weeks (Reason: labwork) Billing Information: * Visit Code: 48813 Office Visit, Est Pt., Level 3. * Procedure Codes: 04364 P/M RAC SPECIALIST, INDIV 15 MIN. * Sign off status: Completed true * Provider: Ronnie Barlow MD Date: 12/25/2024 Generated for Chucho mathews/Tima/Cherelle on: 12/26/2024 12:43 AM CDT
--- OUTSIDE RECORDS SUMMARY | 2024-12-26 00:43 | XMS_ITS | Clinical Summary ---
Author Organization [facility] Address [address] [place] [id number] Care Team Providers Care Launch Engineer Name Role Phone Harry Pompa MD Primary Care Provider [phone] Social History Tobacco Use Types Packs/Day Years Used Date Smoking Tobacco: Never Assessed Comments Unknown Sex and Gender Information Value Date Recorded Sex Assigned at Not on file Legal Sex Female 1:54 PM CDT Gender Identity Not on file Sexual Orientation Not on file Plan of Treatment Health Maintenance Due Date Last Done Comments Cervical Cancer Screening Pap Smear (Age 30 to 64) Every 3 Years 1973 Colorectal Cancer Screening Colonoscopy (10 Years) 1973 Annual Physical 1976 Hepatitis C 1991 DTaP, Tdap and Td Vaccines (1 - Tdap) 1992 Hepatitis B Vaccines (1 of 3 - 19+ 3-dose series) 1992 Cervical Cancer Screening Pap with HPV Testing (Age 30 to 64) Every 5 Years 2003 Cervical Cancer Screening with HPV 2003 Mammogram Screening 2013 Pneumococcal Vaccine: 50+ Years (1 of 1 - PCV) 2023 Zoster Vaccines (1 of 2) 2023 COVID-19 Vaccine (2023- season) 2024 06/13/2021, 11/27/2020, 11/06/2020, Additional history exists Meningococcal B Vaccine Aged Out No l onger eligible based on patient's age to complete this topic Meningococcal Vaccine Aged Out No mariam radha eligible based on patient's age to complete this topic RSV Immunizations Under 20 Months Aged Out No longer eligible based on patient's age to complete this topic Insurance [facility] Care Teams Launch Engineer Relationship Specialty [place] [id number] [place] [address] PCP - General OPHTHALMOLOGY 11/11/23
--- OUTSIDE RECORDS SUMMARY | 2024-12-26 00:44 | XMS_ITS | Patient Health Record ---
Author Organization [facility] Address [address] [facility] YVROSE Valdez [id number] Care Team Providers Care Charge Loader Name Role Phone Aleena Barlow Unavailable [phone] Migration, Provider Unavailable Unavailable Yoandy Escobar Unavailable [phone] Aura Perkins Unavailable [phone] Balbir Velasco Unavailable [phone] Allergies Allergen (clinical drug ingredient) Drug/Non Drug Allergy documented on EMR Reaction Allergy Type Onset Date Status Fish Oil anaphylaxis Drug Allergy Activ e Results Component Value Reference Range Flag Notes DEXAMETHASONE Reviewed date:02/24/2024 08:39:18 AM Interpretation: Performing Lab:Man KABA/[facility],, [address] [place], [address] Liz Paris MD,PhD,AN Notes/Report: FASTING:YES Reference Ranges for Dexamethasone: FASTING: YES Baseline: Less than 20 ng/dL 1 mg dexamethasone overnight: 180-550 ng/dL (8:00-10:00 AM) This test was developed and its analytical performance characteristics have been determined by [facility]. It has not been cleared or approved by FDA. This assay has been validated pursuant to the CLIA regulations and is used for clinical purposes. DEXAMETHASONE 351 CORTISOL, TOTAL Reviewed date:02/11/2024 07:35:44 AM Interpretation: Performing Lab:MAURO, Man Olivas[facility], [address] [place], [address] Zoran Dyer MD Notes/Report: Reference Range: For 8 a.m.(7-9 a.m.) Specimen: 4.0-22.0 FASTING:YES Reference Range: For 4 p.m.(3-5 p.m.) Specimen: 3.0-17.0 * Please interpret above results accordingly * FASTING: YES CORTISOL, TOTAL 1.7 L COMPREHENSIVE METABOLIC PANE L Reviewed date:02/11/2024 10:10:20 PM Interpretation: Performing Lab:[facility], [address] [place], [address] Zoran Dyer Notes/Report: Not Reported: BUN and Creatinine are within FASTING:YES Fasting reference interval reference range. FASTING: YES GLUCOSE 73 65-99 mg/dL N UREA NITROGEN (BUN) 20 7-25 mg/dL N CREATININE 1.02 0.50-1.03 mg/dL N EGFR 67 > OR = 60 mL/min/1.73m2 N BUN/CREATININE RATIO SEE NOTE: 6-22 (calc) SODIUM 136 135-146 mmol/L N POTASSIUM 3.9 3.5-5.3 mmol/L N CHLORIDE 100 98-110 mmol/L N CARBON DIOXIDE 26 20-32 mmol/L N CALCIUM 9.9 8.6-10.4 mg/dL N PROTEIN, TOTAL 7.3 6.1-8.1 g/dL N ALBUMIN 4.4 3.6-5.1 g/dL N GLOBULIN 2.9 1.9-3.7 g/dL (calc) N ALBUMIN/GLOBULIN RATIO 1.5 1.0-2.5 (calc) N BILIRUBIN, TOTAL 0.4 0.2-1.2 mg/dL N ALKALINE PHOSPHATASE 85 37-153 U/L N AST 21 10-35 U/L N ALT 16 6-29 U/L N VITAMIN D, 25-HYDROXY, LC/MS /MS Reviewed date:02/14/2024 12:34:58 PM Interpretation: Performing Lab:MAURO [employer] [place], [address] [place], [address] Zoran Dyer MD Notes/Report: Vitamin D Status 25-OH Vitamin D: FASTING:YES Deficiency: <20 ng/mL FASTING: YES Insufficiency: 20 - 29 ng/mL Optimal: > or = 30 ng/mL For 25-OH Vitamin D testing on patients on D2-supplementation and patients for whom quantitation of D2 and D3 fractions is required, the QuestAssureD(TM) 25-OH VIT D, (D2,D3), LC/MS/MS is recommended: order code 62735 (patients >2yrs). See Note 1 Note 1 For additional information, please refer to http://education.Thrillist.com/faq/VSS589 (This link is being provided for informational/ educational purposes only.) VITAMIN D,25-OH,TOTAL,IA 42 30-100 ng/mL N ACTH, PLASMA Reviewed date:02/14/2024 12:30:21 PM Interpretation: Performing Lab:Man MANNING/[facility]indi [facility], [address], [place], [address] Vincent Reyez M.D.,PhD Notes/Report: FASTING:YES Reference range applies only to specimens collected between 7am-10am. FASTING: YES ACTH, PLASMA 12 6-50 pg/mL T3, FREE Reviewed date:02/11/2024 10:06:12 PM Interpretation: Performing Lab:MAURO [employer] [place], [address] [place], [address] Zoran Dyer MD Notes/Report: FASTING:YES FASTING: YES T3, FREE 2.8 2.3-4.2 pg/mL N CORTISOL, TOTAL Reviewed date:02/11/2024 10:06:56 PM Interpretation: Performing Lab:Man W[facility], [address] [place], [address] Zoran Dyer MD Notes/Report: Reference Range: For 8 a.m.(7-9 a.m.) Specimen: 4.0-22.0 FASTING:YES Reference Range: For 4 p.m.(3-5 p.m.) Specimen: 3.0-17.0 * Please interpret above results accordingly * FASTING: YES CORTISOL, TOTAL 22.2 H DHEA SULFATE Reviewed date:02/11/2024 10:06:33 PM Interpretation: Performing Lab:Man WADE[facility], [address] [place], [address] Zoran Dyer MD Notes/Report: FASTING:YES FASTING: YES DHEA SULFATE 82 15-205 mcg/dL N HEMOGLOBIN A1c Reviewed date:02/14/2024 12:30:14 PM Interpretation: Performing Lab:[facility], [address] [place], [address] Zoran Dyer Notes/Report: For the purpose of screening for the presence of FASTING:YES diabetes: FASTING: YES <5.7% Consistent with the absence of diabetes 5.7-6.4% Consistent with increased risk for diabetes (prediabetes) > or =6.5% Consistent with diabetes This assay result is consistent with a decreased risk of diabetes. Currently, no consensus exists regarding use of hemoglobin A1c for diagnosis of diabetes in children. According to [place] Diabetes Association (ADA) guidelines, hemoglobin A1c <7.0% represents optimal control in non- diabetic patients. Different metrics may apply to specific patient populations. Standards of Medical Care in Diabetes(ADA). HEMOGLOBIN A1c 5.2 <5.7 % of total Hgb N INSULIN Reviewed date:02/11/2024 10:06:21 PM Interpretation: Performing Lab:[facility], [address] [place], [address] Zoran Dyer MD Notes/Report: Reference Range < or = 18.4 FASTING:YES Risk: FASTING: YES Optimal < or = 18.4 Moderate NA High >18.4 Adult cardiovascular event risk category cut points (optimal, moderate, high) are based on Insulin Reference Interval studies performed at [facility] in 2021. INSULIN 4.9 N CBC (INCLUDES DIFF/PLT) Reviewed date:02/11/2024 10:07:25 PM Interpretation: Performing Lab:[facility], [address] [place], [address] Zoran Dyer Notes/Report: For adults, a slight decrease in the calculated MCHC FASTING:YES value (in the range of 30 to 32 g/dL) is most likely not clinically significant; however, it should be FASTING: YES interpreted with caution in correlation with other red cell parameters and the patient's clinical condition. WHITE BLOOD CELL COUNT 7.5 3.8-10.8 Thousand/uL N RED BLOOD CELL COUNT 4.78 3.80-5.10 Million/uL N HEMOGLOBIN 14.2 11.7-15.5 g/dL N HEMATOCRIT 44.7 35.0-45.0 % N MCV 93.5 80.0-100.0 fL N MCH 29.7 27.0-33.0 pg N MCHC 31.8 32.0-36.0 g/dL L RDW 12.9 11.0-15.0 % N PLATELET COUNT 294 140-400 Thousand/uL N MPV 9.7 7.5-12.5 fL N ABSOLUTE NEUTROPHILS [phone] cells/uL N ABSOLUTE LYMPHOCYTES 7486 950-2748 cells/uL N ABSOLUTE MONOCYTES 683 200-950 cells/uL N ABSOLUTE EOSINOPHILS 510 15-500 cells/uL H ABSOLUTE BASOPHILS 143 0-200 cells/uL N NEUTROPHILS 57.3 N LYMPHOCYTES 24.9 N MONOCYTES 9.1 N EOSINOPHILS 6.8 N BASOPHILS 1.9 N VITAMIN B12/FOLATE, SERUM PA HEATHER Reviewed date:02/11/2024 10:06:03 PM Interpretation: Performing Lab:[place], [address] [place], [address] Zoran Dyer MD Notes/Report: Reference Range FASTING:YES Low: <3.4 Borderline: 3.4-5.4 FASTING: YES Normal: >5.4 VITAMIN B12 220 539-1447 pg/mL N FOLATE, SERUM >24.0 N IRON AND TOTAL IRON BINDING CAPACITY Reviewed date:02/11/2024 10:10:06 PM Interpretation: Performing Lab:[facility]URO [facility], [address] Anderson[address] [place], [address] Zoran Dyer MD Notes/Report: FASTING:YES FASTING: YES IRON, TOTAL 42 45-160 mcg/dL L IRON BINDING CAPACITY 327 250-450 mc g/dL (calc) N % SATURATION 13 16-45 % (calc) L T4, FREE Reviewed date:02/14/2024 12:30:29 PM Interpretation: Performing Lab:Man [facility], [address] [place], [address] Zoran Dyer Notes/Report: FASTING:YES FASTING: YES T4, FREE 1.3 0.8-1.8 ng/dL N TSH Reviewed date:02/11/2024 10:13:05 PM Interpretation: Performing Lab:CHAS, [facility], [address], [place], [address] Zoran Dyer Notes/Report: Reference Range FASTING:YES > or = 20 Years 0.40-4.50 FASTING: YES Ranges First trimester 0.26-2.66 Second trimester 0.55-2.73 Third trimester 0.43-2.91 TSH 3.51 N THYROID PEROXIDASE ANTIBODIE S Reviewed date:02/11/2024 10:07:06 PM Interpretation: Performing Lab:, [facility], [address] [place], [address] Doron Mirza Notes/Report: FASTING:YES FASTING: YES THYROID PEROXIDASE ANTIBODIES <1 <9 IU/mL COMPREHENSIVE METABOLIC PANE L Reviewed date:04/01/2024 02:16:37 PM Interpretation: Performing Lab:[place], [facility], [address] [place], [address] Zoran Dyer MD Notes/Report: Not Reported: BUN and Creatinine are within COLLECTION KIT GIVEN TO PATIENT. PATIENT ADVISED TO RETURN. Fasting reference interval reference range. GLUCOSE 73 65-99 mg/dL N UREA NITROGEN (BUN) 13 7-25 mg/dL N CREATININE 0.92 0.50-1.03 mg/dL N EGFR 75 > OR = 60 mL/min/1.73m2 N BUN/CREATININE RATIO SEE NOTE: 6-22 (calc) SODIUM 138 135-146 mmol/L N POTASSIUM 3.9 3.5-5.3 mmol/L N CHLORIDE 103 98-110 mmol/L N CARBON DIOXIDE 24 20-32 mmol/L N CALCIUM 9.0 8.6-10.4 mg/dL N PROTEIN, TOTAL 6.5 6.1-8.1 g/dL N ALBUMIN 4.1 3.6-5.1 g/dL N GLOBULIN 2.4 1.9-3.7 g/dL (calc) N ALBUMIN/GLOBULIN RATIO 1.7 1.0-2.5 (calc) N BILIRUBIN, TOTAL 0.7 0.2-1.2 mg/dL N ALKALINE PHOSPHATASE 79 37-153 U/L N AST 16 10-35 U/L N ALT 16 6-29 U/L N T3, FREE Reviewed date:04/01/2024 02:18:52 PM Interpretation: Performing Lab:MAURO [facility], [address] [place], [address] Zoran Dyer MD Notes/Report: COLLECTION KIT GIVEN TO PATIENT. PATIENT ADVISED TO RETURN. T3, FREE 3.1 2.3-4.2 pg/mL N CBC (INCLUDES DIFF/PLT) Reviewed date:04/01/2024 02:16:03 PM Interpretation: Performing Lab:[facility], [address], [place], [address] Zoran Dyer Notes/Report: For adults, a slight decrease in the calculated MCHC COLLECTION KIT GIVEN TO PATIENT. PATIENT ADVISED TO RETURN. value (in the range of 30 to 32 g/dL) is most likely not clinically significant; however, it should be interpreted with caution in correlation with other red cell parameters and the patient's clinical condition. WHITE BLOOD CELL COUNT 7.8 3.8-10.8 Thousand/uL N RED BLOOD CELL COUNT 4.72 3.80-5.10 Million/uL N HEMOGLOBIN 14.2 11.7-15.5 g/dL N HEMATOCRIT 43.5 35.0-45.0 % N MCV 92.2 80.0-100.0 fL N MCH 30.1 27.0-33.0 pg N MCHC 32.6 32.0-36.0 g/dL N RDW 12.8 11.0-15.0 % N PLATELET COUNT 257 140-400 Thousand/uL N MPV 10.1 7.5-12.5 fL N ABSOLUTE NEUTROPHILS 4781 2495-2920 cells/uL N ABSOLUTE LYMPHOCYTES 9592 656-2999 cells/uL N ABSOLUTE MONOCYTES 585 200-950 cells/uL N ABSOLUTE EOSINOPHILS 601 15-500 cells/uL H ABSOLUTE BASOPHILS 101 0-200 cells/uL N NEUTROPHILS 61.3 N LYMPHOCYTES 22.2 N MONOCYTES 7.5 N EOSINOPHILS 7.7 N BASOPHILS 1.3 N VITAMIN B12/FOLATE, SERUM PA HEATHER Reviewed date:04/01/2024 02:19:04 PM Interpretation: Performing Lab:MAURO [facility], [address] [place], [address] Zoran Dyer MD Notes/Report: Reference Range COLLECTION KIT GIVEN TO PATIENT. PATIENT ADVISED TO RETURN. Low: <3.4 Borderline: 3.4-5.4 Normal: >5.4 VITAMIN B12 623 347-0262 pg/mL N FOLATE, SERUM >24.0 N IRON AND TOTAL IRON BINDING CAPACITY Reviewed date:04/01/2024 02:16:18 PM Interpretation: Performing Lab:Man WADETe[facility], [address] [place], [address] Zoran Dyer MD Notes/Report: COLLECTION KIT GIVEN TO PATIENT. PATIENT ADVISED TO RETURN. IRON, TOTAL 78 45-160 mcg/dL N IRON BINDING CAPACITY 248 250-450 mc g/dL (calc) L % SATURATION 31 16-45 % (calc) N T4, FREE Reviewed date:04/01/2024 02:18:43 PM Interpretation: Performing Lab:[facility], [address] [place], [address] Zoran Dyer Notes/Report: COLLECTION KIT GIVEN TO PATIENT. PATIENT ADVISED TO RETURN. T4, FREE 1.2 0.8-1.8 ng/dL N PTH, INTACT AND CALCIUM Reviewed date:04/01/2024 02:16:11 PM Interpretation: Performing Lab:Man WADE, [address] [place], [address] Zoran Dyer MD Notes/Report: COLLECTION KIT GIVEN TO PATIENT. PATIENT ADVISED TO RETURN. Interpretive Guide Intact PTH Calcium ------- Normal Parathyroid Normal Normal Hypoparathyroidism Low or Low Normal Low Hyperparathyroidism Primary Normal or High High Secondary High Normal or Low Tertiary High High Non-Parathyroid Hypercalcemia Low or Low Normal High PARATHYROID HORMONE, INTACT 24 16-77 pg/mL N CALCIUM 9.0 8.6-10.4 mg/dL N TSH Reviewed date:04/01/2024 02:18:34 PM Interpretation: Performing Lab:[facility], [address] [place], [address] Zoran Dyer Notes/Report: Reference Range COLLECTION KIT GIVEN TO PATIENT. PATIENT ADVISED TO RETURN. > or = 20 Years 0.40-4.50 Ranges First trimester 0.26-2.66 Second trimester 0.55-2.73 Third trimester 0.43-2.91 TSH 3.65 N CALCIUM, 24 HOUR URINE (W/ C REATININE) Reviewed date:04/18/2024 10:30:59 PM Interpretation: Performing Lab:Man WADE, [address] [place], [address] Zoran Dyer MD Notes/Report: Reference Range 35-250 SPLIT 03/29/2024 FROM [id number] Low calcium diet 35-200 URINE VOLUME: 1300/24 CALCIUM/CREATININE RATIO 312 30-275 mg/g creat H CALCIUM, 24 HOUR URINE 276 H CREATININE, 24 HOUR URINE 0.88 0.50-2.15 g/24 h N DEXAMETHASONE Reviewed date:05/20/2024 10:03:45 AM Interpretation: Performing Lab:Man KABA/[facility],, [address] [place], [address] Liz Paris MD,PhD,AN Notes/Report: Reference Ranges for Dexamethasone: Baseline: Less than 20 ng/dL 1 mg dexamethasone overnight: 180-550 ng/dL (8:00-10:00 AM) This test was developed and its analytical performance characteristics have been determined by [facility]. It has not been cleared or approved by FDA. This assay has been validated pursuant to the CLIA regulations and is used for clinical purposes. DEXAMETHASONE 295 CORTISOL, TOTAL Reviewed date:05/12/2024 05:30:21 PM Interpretation: Performing Lab:MAURO [employer] [place], [address] [place], [address] Zoran Dyer MD Notes/Report: Reference Range: For 8 a.m.(7-9 a.m.) Specimen: 4.0-22.0 Reference Range: For 4 p.m.(3-5 p.m.) Specimen: 3.0-17.0 * Please interpret above results accordingly * CORTISOL, TOTAL 1.5 L DHEA SULFATE (402) Reviewed date:06/14/2024 02:04:13 PM Interpretation: Performing Lab:Man WADE-Tulxjc[address] [place]jm[place]jxLS[address] Zoran Dyer MD Notes/Report: DHEA SULFATE 92 5-167 mcg/dL N T4, FREE (866) Reviewed date:06/13/2024 09:45:19 PM Interpretation: Performing Lab:Man [place] [address] [place] [address] LiCristina Dyer Notes/Report: T4, FREE 1.2 0.8-1.8 ng/dL N TSH (899) Reviewed date:06/13/2024 09:45:19 PM Interpretation: Performing Lab:Man [place] [address] [place] [address] [facility] Dyer Notes/Report: TSH 3.13 N Third trimester 0.43-2.91 Ranges First trimester 0.26-2.66 Second trimester 0.55-2.73 Reference Range > or = 20 Years 0.40-4.50 ACTH, PLASMA (211) Reviewed date:06/20/2024 01:48:41 PM Interpretation: Performing Lab:Man MANNING/Cindi [place] [address], [place]re[place] Vincent Reyez M.D.,PhD Notes/Report: ACTH, PLASMA 7 6-50 pg/mL Reference range applies only to specimens collected between 7am-10am. CORTISOL, TOTAL (367) Reviewed date:06/20/2024 01:48:40 PM Interpretation: Performing Lab:Man WADE-Qmcobd[address], KammviXU[address] Zoran Dyer MD Notes/Report: CORTISOL, TOTAL 20.2 N Reference Range: For 4 p.m.(3-5 p.m.) Specimen: 3.0-17.0 * Please interpret above results accordingly * Reference Range: For 8 a.m.(7-9 a.m.) Specimen: 4.0-22.0 DEXAMETHASONE ([id number]) Reviewed date:07/01/2024 12:37:18 PM Interpretation: Performing Lab:Man KABA/[facility],[address] [facility] Liz Paris MD,PhD,AN Notes/Report: DEXAMETHASONE 229 Baseline: Less than 20 ng/dL This test was developed and its analytical performance characteristics have been determined by [facility]. It has not been cleared or approved by FDA. This assay has Reference Ranges for Dexamethasone: for clinical purposes. been validated pursuant to the CLIA regulations and is used 1 mg dexamethasone overnight: 180-550 ng/dL (8:00-10:00 AM) CORTISOL, LC/MS, SALIVA, 2 S AMPLES ([id number]) Reviewed date:07/04/2024 09:00:06 PM Interpretation: Performing Lab:SESAR, Man Olivas/Cindi [facility],[address] [facility] Liz Paris MD,PhD,AN Notes/Report: URINE VOLUME: 1300/24 DRAW DATE 1 06/25/2024 DRAW TIME 1 12:00 AM CORTISOL, SALIVA SAMPLE 1 0.03 characteristics have been determined by [facility]. for clinical purposes. It has not been cleared or approved by FDA. This assay has noon-2 PM: < OR = 0.21 mcg/dL 8-10 AM: 0.04-0.56 mcg/dL 10 PM-1 AM: < OR = 0.09 mcg/dL 4-6 PM: < OR = 0.15 mcg/dL This test was developed and its analytical performance been validated pursuant to the CLIA regulations and is used DRAW DATE 2 06/26/2024 DRAW TIME 2 12:00 AM CORTISOL, SALIVA SAMPLE 2 0.14 8-10 AM: 0.04-0.56 mcg/dL for clinical purposes. This test was developed and its analytical performance noon-2 PM: < OR = 0.21 mcg/dL It has not been cleared or approved by FDA. This assay has been validated pursuant to the CLIA regulations and is used 10 PM-1 AM: < OR = 0.09 mcg/dL 4-6 PM: < OR = 0.15 mcg/dL characteristics have been determined by [facility]. CORTISOL, FREE, 24 HOUR URIN E ([id number]) Reviewed date:07/01/2024 12:39:23 PM Interpretation: Performing Lab:SESAR [facility],[address], [place] Liz Paris MD,PhD,AN Notes/Report: URINE VOLUME: 1300/24 TOTAL VOLUME 1300 CORTISOL, FREE, URINE 12.2 4.0-50.0 mcg/24 h CORTISOL, FREE, URINE 12.5 ADULTS: 3.1-42.3 Reference Range: CREATININE, URINE 0.97 0.50-2.15 g/24 h been validated pursuant to the CLIA regulations and is used characteristics have been determined by [facility]. It has not been cleared or approved by FDA. This assay has for clinical purposes. This test was developed and its analytical performance .HEMOGLOBIN A1c (496) Reviewed date:07/22/2024 07:21:23 PM Interpretation: Performing Lab:[facility]AS [facility] [facility]lyazjWE[address] Zoran Dyer Notes/Report: FASTING:YES FASTING: YES HEMOGLOBIN A1c 4.9 <5.7 % of total Hgb N of diabetes. 5.7-6.4% Consistent with increased risk for diabetes <5.7% Consistent with the absence of diabetes According to [place] Diabetes Association (ADA) > or =6.5% Consistent with diabetes hemoglobin A1c for diagnosis of diabetes in children. control in non- diabetic patients. Different Standards of Medical Care in Diabetes(ADA). Currently, no consensus exists regarding use of For the purpose of screening for the presence of metrics may apply to specific patient populations. This assay result is consistent with a decreased risk guidelines, hemoglobin A1c <7.0% represents optimal diabetes: (prediabetes) INSULIN (561) Reviewed date:07/22/2024 07:21:23 PM Interpretation: Performing Lab:MAURO [facility]-Asyfbi[address] RileyIfsqlqJL[address] Zoran Dyer MD Notes/Report: FASTING:YES FASTING: YES INSULIN 8.8 N Optimal < or = 18.4 studies performed at [facility] cut points (optimal, moderate, high) High >18.4 Adult cardiovascular event risk category in 2021. Reference Range < or = 18.4 Moderate NA are based on Insulin Reference Interval Risk: T4, FREE (866) Reviewed date:07/22/2024 07:21:23 PM Interpretation: Performing Lab:Man [place] [address] [address] Dyer Notes/Report: FASTING:YES FASTING: YES T4, FREE 1.2 0.8-1.8 ng/dL N TSH (899) Reviewed date:07/22/2024 07:21:23 PM Interpretation: Performing Lab:Man [place] [address] [address] Notes/Report: FASTING:YES FASTING: YES TSH 2.06 N First trimester 0.26-2.66 Reference Range > or = 20 Years 0.40-4.50 Ranges Second trimester 0.55-2.73 Third trimester 0.43-2.91 T3, FREE (85725) Reviewed date:07/22/2024 07:21:23 PM Interpretation: Performing Lab:Man WADE-Xvzdfm[address], KgqataOT[address] [facility] Tex Dyer MD Notes/Report: FASTING:YES FASTING: YES T3, FREE 2.7 2.3-4.2 pg/mL N INSULIN, INTACT, LC/MS/MS (9 1921) Reviewed date:07/25/2024 08:47:06 PM Interpretation: Performing Lab:Man [facility]AA/Cindi [facility],[address] [facility] Liz Paris MD,PhD,AN Notes/Report: FASTING:YES FASTING: YES INSULIN, INTACT, LC/MS/MS 6 < OR = 16 uIU/mL characteristics have been determined by [facility]. Insulin concentration can be converted to pmol/L by applying the conversion factor: 1 uIU/mL = 5.97 pmol/L purposes only.) used for clinical purposes. It has not been cleared or approved by the FDA. This assay http://education.atHomestars/faq/UZC746 (This link is being provided for informational/educationa l For additional information, please refer to This test was developed and its analytical performance has been validated pursuant to the CLIA regulations and is CORTISOL, TOTAL (367) Reviewed date:08/21/2024 11:04:11 PM Interpretation: Performing Lab:Man [facility]-Bhnovy[address], PgwtjcVI[address] Zoran Dyer MD Notes/Report: CORTISOL, TOTAL 1.6 L * Please interpret above results accordingly * Reference Range: For 8 a.m.(7-9 a.m.) Specimen: 4.0-22.0 Reference Range: For 4 p.m.(3-5 p.m.) Specimen: 3.0-17.0 DEXAMETHASONE ([id number]) Reviewed date:08/26/2024 09:53:20 PM Interpretation: Performing Lab:Man KABA/Cindi [facility],[address] [address] [facility] Hospital[facility] Liz Paris MD,PhD,AN Notes/Report: DEXAMETHASONE 335 This test was developed and its analytical performance Baseline: Less than 20 ng/dL 1 mg dexamethasone overnight: 180-550 ng/dL (8:00-10:00 AM) used for clinical purposes. has been validated pursuant to the CLIA regulations and is Reference Ranges for Dexamethasone: characteristics have been determined by [facility]. It has not been cleared or approved by the FDA. This assay Reason For Referral No Information Medications Medication SIG (Take, Route, Frequency, Duration) Notes Start Date End Date Status Ramelteon 8 MG Tablet 1 tablet at bedtim e as needed Orally Once a day; Duration: 30 days 10/27/2024 Active Estradiol 0.5 mg tablet 1 tab(s) orally once a day Active Belsomra 10 MG Tablet 1 tablet at bedtim e as needed Orally Once a day; Duration: 30 days 12/05/2024 Active Calcium Carbonate 1250 mg tablet 1 tab(s) orally 3 times a day x2 daily *Pick strength-form from [employer] for eRX* Active ZyrTEC 10 mg tablet 1 tab(s) orally once a day *Pick strength-form from [employer] for eRX* Active DULoxetine HCl 60 mg delayed release capsule 1 cap(s) orally once a day *Pick strength-form from [facility] for eRX* Active Rosuvastatin Calcium 20 mg tablet 1 tab(s) orally once a day Active Tolterodine Tartrate 4 mg capsule, extended release 1 cap(s) orally once a day *Pick strength-form from [facility] for eRX* Active Align 4 mg capsule 1 cap(s) orally once a day Active Vitamin E *Pick strength-form from [facility] for eRX* Active Social History Social History Additional Details Category Social Info Options Details Migrated Social History Migrated Social History (Alcohol:):no (Recreational drug use:):no (Smoking:):no Section Notes: Non-Contributory Non-Contributory Non-Contributory Non-Contributory Problems Problem Type SNOMED Code ICD Code Onset Dates Problem Status W/U Status Risk Notes Problem Disorder of adrenal gland (59003414) Disorder of adrenal gland, 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) Active confirmed Problem Overweight (566987138) Overweight (E66.3) Active confirmed Problem Obesity (184790213) Obesity, unspecified (E66.9) Active confirmed Problem Hypercalcemia (20955069) Hypercalcemia (E83.52) Active confirmed Problem Primary insomnia (1215546) Primary insomnia (F51.01) Active confirmed Problem Seasonal allergic rhinitis (866195383) Other seasonal allergic rhinitis (J30.2) Active confirmed Problem Allergic rhinitis (45797791) Other allergic rhinitis (J30.89) Active confirmed Problem Allergic rhinitis (40319715) Allergic rhinitis, unspecified (J30.9) Active confirmed Problem Menopause (316240382) Menopausal and female climacteric states (N95.1) Active confirmed Problem Obese class II (046996830069377) Body mass index [BMI] 35.0-35.9, adult (Z68.35) Active confirmed Vital Signs Heart Rate 68 /min 12/25/2024 Height-cm 165.1 cm 12/25/2024 Oximetry 98 % 12/25/2024 Blood pressure diastolic 70 mm Hg 12/25/2024 Weight-kg 67.31 kg 12/25/2024 Height 65 in 12/25/2024 Blood pressure systolic 107 mm Hg 12/25/2024 Weight 148.4 lbs 12/25/2024 BMI 24.69 kg/m2 12/25/2024 Encounters Encounter Location Date Provider Diagnosis [address] [id number] 03/18/2024 Provider Migration AMMO [facility] [address] [place] [phone] 02/01/2024 Aura Perkins Obesity, unspecified E66.9 ; Abnormal weight gain R63.5 ; Other fatigue R53.83 and Body mass index [BMI] 35.0-35.9, adult Z68.[address] Barlow [address] [place] [phone] 02/25/2024 Aleena Barlow Obesity, unspecified E66.9 ; Hypercalcemia E83.52 ; Other fatigue R53.83 and Dietary counseling and surveillance Z71.[address] Barlow [address] [place] [phone] 03/16/2024 Jana-Claudine Escobar Allergic rhinitis, unspecified J30.[address] Barlow [address] [place] [phone] 03/20/2024 Aleenafranko Barlow Obesity, unspecified E66.9 and Dietary counseling and surveillance Z71.[address] Barlow [address] [place] [phone] 03/29/2024 Jana-Claudine Escobar Other allergic rhini tis J30.[address] Barlow [address] [place] [phone] 04/03/2024 Jana-Claudine Escobar Other allergic rhini tis J30.[address] Barlow [address] [place] [phone] 04/04/2024 Jana-Claudine Escobar Other allergic rhini tis J30.[address] Barlow [address] [place] [phone] 04/05/2024 Jana-Claudine Escobar Other allergic rhini tis J30.[address] Barlow [address] [place] [phone] 04/06/2024 Jana-Claudine Escobar Other allergic rhini tis J30.[address] Barlow [address] [place] [phone] 04/07/2024 Jana-Claudine Escobar Other allergic rhini tis J30.[address] Barlow [address] [place] [phone] 04/10/2024 Jana-Claudine Escobar Other allergic rhini tis J30.[address] Barlow [id number] [place] [phone] 04/11/2024 Jana-Claudine Escobar Other allergic rhini tis J30.[address] Barlow [address] [place] [phone] 04/12/2024 Jana-Claudine Escobar Other allergic rhini tis J30.[address] Barlow [address] [place] [phone] 04/13/2024 Jana-Claudine Escobar Other allergic rhini tis J30.[address] Barlow [address] [place] [phone] 04/17/2024 Aleena Wood Obesity, unspecified E66.9 ; Dietary counseling and surveillance Z71.3 and Other seasonal allergic rhinitis J30.[address] Barlow [address] [place] [phone] 05/18/2024 Aleena Wood Obesity, unspecified E66.9 ; Hypercalcemia E83.52 and Dietary counseling and surveillance Z71.[address] Barlow [address] [place] [phone] 06/15/2024 Aleena Cain Dietary counseling a nd surveillance Z71.3 and Obesity, unspecified E66.[address] 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 Barlow [address] [place] [phone] 09/01/2024 Aleena Wood Overweight E66.3 ; Menopausal and female climacteric states N95.1 and Dietary counseling and surveillance Z71.[address] Barlow [address] [place] [phone] 09/29/2024 Aleena Barlow Dietary counseling a nd surveillance Z71.3 ; Overweight E66.3 and Primary insomnia F51.[address] Barlow [id number] [place] [phone] 10/27/2024 Aleena Barlow Overweight E66.3 ; Primary insomnia F51.01 and Dietary counseling and surveillance Z71.[address] Barlow [address] [place] [phone] 11/28/2024 Aleena Barlow Primary insomnia F51 .01 ; Overweight E66.3 and Dietary counseling and surveillance Z71.[address] Barlow [address] [place] [phone] 12/25/2024 Aleena Barlow Overweight E66.3 and Dietary counseling and surveillance Z71.[address] Barlow [address] [place] [phone] 03/01/[address] Barlow [address] [place] [phone] 03/13/2024 Balbir Velasco AMMO [facility] [address] [place] [phone] 07/11/2024 Aleena Barlow [facility] [address] [place] [phone] 10/30/[address] Barlow [address] [place] [phone] 12/05/2024 Aleena Barlow Primary insomnia F51 .01 Assessments Encounter Date Diagnosis (ICD Code) Assessment Notes Treatment Notes Treatment Clinical Notes Section Notes 02/01/2024 Obesity, unspecified (ICD-10 - E66.9) -Start 2.5mg tirzepatide program today, injection administered. -CW Protein purchased today, pt educated on importance of protein intake. z 02/01/2024 Abnormal weight gain (ICD-10 - R63.5) z 02/25/2024 Obesity, unspecified (ICD-10 - E66.9) 02/25/2024 Hypercalcemia (ICD-10 - E83.52) 03/16/2024 Allergic rhinitis, unspecified (ICD-10 - J30.9) 03/20/2024 Obesity, unspecified (ICD-10 - E66.9) 03/20/2024 Dietary counseling and surveillance (ICD-10 - Z71.3) 03/29/2024 Other allergic rhinitis (ICD-10 - J30.89) 04/03/2024 Other allergic rhinitis (ICD-10 - J30.89) 04/04/2024 Other allergic rhinitis (ICD-10 - J30.89) 04/05/2024 Other allergic rhinitis (ICD-10 - J30.89) 04/06/2024 Other allergic rhinitis (ICD-10 - J30.89) 04/07/2024 Other allergic rhinitis (ICD-10 - J30.89) 04/10/2024 Other allergic rhinitis (ICD-10 - J30.89) 04/11/2024 Other allergic rhinitis (ICD-10 - J30.89) 04/12/2024 Other allergic rhinitis (ICD-10 - J30.89) 04/13/2024 Other allergic rhinitis (ICD-10 - J30.89) 04/17/2024 Obesity, unspecified (ICD-10 - E66.9) provided 4 prefilled syringes of tirzepatide 7.5 mg weekly lot number of [id number] 04/17/2024 Dietary counseling and surveillance (ICD-10 - Z71.3) 05/18/2024 Obesity, unspecified (ICD-10 - E66.9) 06/15/2024 Dietary counseling and surveillance (ICD-10 - Z71.3) Spent 15 minutes preventative counseling patient on dietary recommendations and changes in setting of hyperglycemia- need to restrict refined sugars and processed foods and incorporate up to 150 minutes of moderate level activity weekly. 07/06/2024 Disorder of adrenal gland, unspecified (ICD-10 - E27.9) 07/06/2024 Hypercalcemia (ICD-10 - E83.52) 08/04/2024 Obesity, unspecified (ICD-10 - E66.9) provided 4 prefilled syringes of tirzepatide 7.5 mg/B12 combination injections for 4 weeks 08/04/2024 Hypercalcemia (ICD-10 - E83.52) 09/01/2024 Overweight (ICD-10 - E66.3) m 09/01/2024 Menopausal and female climacteric states (ICD-10 - N95.1) m 09/29/2024 Overweight (ICD-10 - E66.3) 09/29/2024 Dietary counseling and surveillance (ICD-10 - Z71.3) Spent 15 minutes preventative counseling patient on dietary recommendations and changes in setting of hyperglycemia- need to restrict refined sugars and processed foods and incorporate up to 150 minutes of moderate level activity weekly. 10/27/2024 Overweight (ICD-10 - E66.3) 10/27/2024 Primary insomnia (ICD-10 - F51.01) 11/28/2024 Primary insomnia (ICD-10 - F51.01) 12/05/2024 Primary insomnia (ICD-10 - F51.01) 12/25/2024 Overweight (ICD-10 - E66.3) 12/25/2024 Dietary counseling and surveillance (ICD-10 - Z71.3) Spent 15 minutes preventative counseling patient on dietary recommendations and changes in setting of hyperglycemia- need to restrict refined sugars and processed foods and incorporate up to 150 minutes of moderate level activity weekly. 10/27/2024 Dietary counseling and surveillance (ICD-10 - Z71.3) Spent 15 minutes preventative counseling patient on dietary recommendations and changes in setting of hyperglycemia- need to restrict refined sugars and processed foods and incorporate up to 150 minutes of moderate level activity weekly. 11/28/2024 Overweight (ICD-10 - E66.3) 08/04/2024 Hypercortisolism (ICD-10 - E24.9) 09/29/2024 Primary insomnia (ICD-10 - F51.01) 06/15/2024 Obesity, unspecified (ICD-10 - E66.9) 07/06/2024 Overweight (ICD-10 - E66.3) 05/18/2024 Hypercalcemia (ICD-10 - E83.52) 04/17/2024 Other seasonal allergic rhinitis (ICD-10 - J30.2) 02/25/2024 Other fatigue (ICD-10 - R53.83) 02/01/2024 Other fatigue (ICD-10 - R53.83) z 02/01/2024 Body mass index [BMI] 35.0-35.9, adult (ICD-10 - Z68.35) z 02/25/2024 Dietary counseling and surveillance (ICD-10 - Z71.3) 05/18/2024 Dietary counseling and surveillance (ICD-10 - Z71.3) LOT [id number] 10 mg tirzepatide = 4 prefilled syringes provided 07/06/2024 Hypercortisolism (ICD-10 - E24.9) 09/01/2024 Dietary counseling and surveillance (ICD-10 - Z71.3) Spent 15 minutes preventative counseling patient on dietary recommendations and changes in setting of hyperglycemia- need to restrict refined sugars and processed foods and incorporate up to 150 minutes of moderate level activity weekly. m 11/28/2024 Dietary counseling and surveillance (ICD-10 - Z71.3) Spent 15 minutes preventative counseling patient on dietary recommendations and changes in setting of hyperglycemia- need to restrict refined sugars and processed foods and incorporate up to 150 minutes of moderate level activity weekly. 08/04/2024 Dietary counseling and surveillance (ICD-10 - Z71.3) Spent 15 minutes preventative counseling patient on dietary recommendations and changes in setting of hyperglycemia- need to restrict refined sugars and processed foods and incorporate up to 150 minutes of moderate level activity weekly. 07/06/2024 Dietary counseling and surveillance (ICD-10 - Z71.3) Spent 15 minutes preventative counseling patient on dietary recommendations and changes in setting of hyperglycemia- need to restrict refined sugars and processed foods and incorporate up to 150 minutes of moderate level activity weekly. 02/01/2024 Other 1. Obesity - Plan: Start tirzepatide 2.5 mg injections once a week for weight management. Encourage a diet with increased protein intake, targeting 100 grams per day. Introduce a chocolate protein shake enriched with vitamins and essential nutrients. Adhere to the provided meal plan and utilize the designated website for recipes and further resources. Schedule a follow-up appointment with Dr. Barlow in one month for lab work and ongoing health management. 2. Sleep Disturbances - Plan: Continue to monitor sleep quality and duration. Address potential contributing factors during subsequent follow-up appointments. 3. Joint Pain - Plan: Continue Cymbalta as prescribed. Monitor any changes in joint pain and discuss these during future follow-up appointments. 4. Low Sodium and Anion Gap - Plan: Monitor sodium levels in upcoming lab tests. Investigate potential causes if the issue persists. 5. Hormone Levels - Plan: Order an estradiol lab test to evaluate hormone levels. Consider hormone replacement therapy based on lab results. 6. Thyroid Function - Plan: Order thyroid function tests to exclude Johana's thyroiditis or other thyroid conditions. Further evaluation and treatment may be considered depending on the outcomes of these tests. 7. Cortisol Levels - Plan: Order a dexamethasone suppression test to screen for excess cortisol. Follow up on test results and assess the need for further evaluation and treatment as indicated. 8. Gastrointestinal Health - Plan: Encourage the ongoing use of probiotics. Monitor bowel movements and digestion for any changes or concerns. 9. Vision Changes - Plan: Recommend an eye exam to evaluate for any vision issues or the necessity for corrective lenses. 10. Colon Health - Plan: Continue regular colonoscopy screenings as per guidelines. Monitor for any changes in bowel habits or concerns during follow-up appointments. [facility]: cbc, cmp, tsh, free t3, ft4, tpo, iron, b12, vit d, dhea-s, acth. DST-total cortisol, dexamethasone Case discussed with DOUGLAS Mccall. Agree with plan. Aleena Barlow MD z 02/25/2024 Other Assessment and Plan: 1. Mildly elevated cortisol levels- Likely due to estrogen therapy, as estrogen can falsely increase cortisol levels. No other signs of high cortisol present. No immediate action needed. Reassess if symptoms worsen or new symptoms arise. 2. Insomnia- Patient reports difficulty staying asleep. Consider trying Benadryl at bedtime to help with sleep and address possible mild allergies. Monitor and follow up on sleep quality. 3. Borderline positive DEXA test (1.7)- Likely influenced by estrogen therapy. No immediate action needed. Reassess if symptoms worsen or new symptoms arise. 4. TSH mildly elevated (3.51)- Likely due to estrogen therapy. No immediate action needed. Reassess if symptoms worsen or new symptoms arise. 5. Weight management and tirzepatide therapy- Patient has lost 10 pounds on tirzepatide and wishes to increase the dose to 5 mg due to increased hunger. Prescribe 5 mg tirzepatide and instruct the patient to switch from 2.5 mg on the next scheduled dose. Monitor for side effects and weight loss progress. 6. Mildly elevated eosinophils (510)- Likely due to seasonal allergies. Patient reports scratchy ears. Recommend continuing sertraline or trying Benadryl at bedtime. Monitor and follow up on allergy symptoms. 7. Mildly low iron levels- Recommend [id number]-ehsxecy chelated iron supplement or obtaining iron from a pharmacy. Monitor and follow up on iron levels and related symptoms. 8. Mildly elevated calcium levels (9.9)- Monitor for symptoms of hyperparathyroidism, such as dizziness, off-balance, high blood pressure, depression, and fatigue. Plan to add PTH level to the next round of labs in 2-3 months to assess for possible parathyroid disease. 9. Fibromyalgia- Patient reports improvement with Cymbalta. Continue current treatment and monitor for any changes in symptoms. Spent 25 minutes preparing to see the patient (ex review of tests/chart), obtaining and / or reviewing separately obtained history, performing a medically appropriate examination and/or evaluation, counseling and educating the patient/family/caregiver , ordering medications, tests, or procedures, referring and communicating with other health care tech, documenting clinical information in the electronic or other health record, independently interpreting results and communicating results to the patient/family/caregiver and care coordinating patient plan. Patient alert and oriented x 4 and aware of discussion noted above and in agreeance to plan in management of obesity/weight management, hypercalcemia, fatigue and iron def anemia. 03/16/2024 Other 45-min appt was used to educate patient on requirements of treatment, symptoms, and possible reactions. Avoid allergens. Continue OTC allergy medications Allergy test with skin prick test Patient had allergy testing done for most prevalent allergens [place] today. See scanned allergy test results for detail. Immunotherapy injection treatment recommended. 03/20/2024 Other tirzepatide 4 7.5 mg provided lot number [id number] Assessment and Plan: 1. Weight management- Patient has lost 19 pounds in the past 6 weeks on 5 mg tirzepatide.- Plan: Increase tirzepatide dose to 10 mg due to the patient reporting increased hunger. Monitor for any side effects, such as nausea or changes in bowel movements. Encourage the patient to continue with a healthy diet, adequate hydration, and physical activity. 2. Hormone therapy- Patient is on estradiol therapy.- Plan: No changes to the current hormone therapy. Continue monitoring hormone levels as needed. 3. Thyroid function- Thyroid levels were within normal limits.- Plan: No intervention needed at this time. Continue monitoring thyroid function as needed. 4. Glycemic control- A1c levels were within the normal range.- Plan: No intervention needed at this time. Continue monitoring A1c levels as needed. 5. Patient education and follow-up- Plan: Educate the patient on potential side effects of increased tirzepatide dose and the importance of maintaining a healthy lifestyle. Schedule a follow-up appointment to assess the patient's progress and address any concerns or questions. Spent 15 minutes preparing to see the patient (ex review of tests/chart), obtaining and / or reviewing separately obtained history, performing a medically appropriate examination and/or evaluation, counseling and educating the patient/family/caregiver , ordering medications, tests, or procedures, referring and communicating with other health care tech, documenting clinical information in the electronic or other health record, independently interpreting results and communicating results to the patient/family/caregiver and care coordinating patient plan. Patient alert and oriented x 4 and aware of discussion noted above and in agreeance to plan in management of weight management/obesity. 03/29/2024 Other Supervision of preperation and provision of allergens for allergen immunotherapy; multiple allergens. Treatment for one year. All antigen and lot numbers were checked to the patient's order number. Please refer to mixing instructions and mixing receipt. Today, 30 units of immunotherapy was aseptically mixed. Medication was placed in refrigerator. 04/03/2024 Other Supervision of preperation and provision of allergens for allergen immunotherapy; multiple allergens. Treatment for one year. All antigen and lot numbers were checked to the patient's order number. Please refer to mixing instructions and mixing receipt. Today, 30 units of immunotherapy was aseptically mixed. Medication was placed in refrigerator. 04/04/2024 Other Supervision of preperation and provision of allergens for allergen immunotherapy; multiple allergens. Treatment for one year. All antigen and lot numbers were checked to the patient's order number. Please refer to mixing instructions and mixing receipt. Today, 30 units of immunotherapy was aseptically mixed. Medication was placed in refrigerator. 04/05/2024 Other Supervision of preperation and provision of allergens for allergen immunotherapy; multiple allergens. Treatment for one year. All antigen and lot numbers were checked to the patient's order number. Please refer to mixing instructions and mixing receipt. Today, 30 units of immunotherapy was aseptically mixed. Medication was placed in refrigerator. 04/06/2024 Other Supervision of preperation and provision of allergens for allergen immunotherapy; multiple allergens. Treatment for one year. All antigen and lot numbers were checked to the patient's order number. Please refer to mixing instructions and mixing receipt. Today, 30 units of immunotherapy was aseptically mixed. Medication was placed in refrigerator. 04/07/2024 Other Supervision of preperation and provision of allergens for allergen immunotherapy; multiple allergens. Treatment for one year. All antigen and lot numbers were checked to the patient's order number. Please refer to mixing instructions and mixing receipt. Today, 30 units of immunotherapy was aseptically mixed. Medication was placed in refrigerator. 04/10/2024 Other Supervision of preperation and provision of allergens for allergen immunotherapy; multiple allergens. Treatment for one year. All antigen and lot numbers were checked to the patient's order number. Please refer to mixing instructions and mixing receipt. Today, 30 units of immunotherapy was aseptically mixed. Medication was placed in refrigerator. 04/11/2024 Other Supervision of preperation and provision of allergens for allergen immunotherapy; multiple allergens. Treatment for one year. All antigen and lot numbers were checked to the patient's order number. Please refer to mixing instructions and mixing receipt. Today, 30 units of immunotherapy was aseptically mixed. Medication was placed in refrigerator. 04/12/2024 Other Supervision of preperation and provision of allergens for allergen immunotherapy; multiple allergens. Treatment for one year. All antigen and lot numbers were checked to the patient's order number. Please refer to mixing instructions and mixing receipt. Today, 30 units of immunotherapy was aseptically mixed. Medication was placed in refrigerator. 04/13/2024 Other Supervision of preperation and provision of allergens for allergen immunotherapy; multiple allergens. Treatment for one year. All antigen and lot numbers were checked to the patient's order number. Please refer to mixing instructions and mixing receipt. Today, 30 units of immunotherapy was aseptically mixed. Medication was placed in refrigerator. 04/17/2024 Other Assessment and Plan: 1. Diabetes management with tirzepatide- Patient reports doing well on tirzepatide 7.25 mg and has lost 8 pounds in the past month.- Blood sugar levels are well-controlled at 73.Plan:- Continue tirzepatide 7.25 mg.- Monitor blood sugar levels and weight loss progress. 2. Gastrointestinal side effects- Patient reports mild nausea and constipation, which have been manageable.- Patient is taking magnesium supplements to help with constipation.Plan:- Continue magnesium supplements as needed.- Monitor for any worsening of gastrointestinal side effects. 3. Anxiety and insomnia- Patient reports occasional anxiety and insomnia.Plan:- Monitor symptoms and consider further evaluation or treatment if symptoms worsen or become more frequent. 4. Discontinuation of estradiol- Patient stopped taking estradiol three weeks ago.- Borderline cortisol levels may be related to recent discontinuation of estradiol.Plan:- Repeat dexamethasone suppression test after six weeks off estradiol to reassess cortisol levels. 5. Allergies and sinus congestion- Patient reports intermittent allergy symptoms and is currently taking cetirizine.- Slightly elevated eosinophil levels.Plan:- Continue cetirizine as needed.- Consider adding montelukast or a mast cell stabilizer if allergy symptoms worsen or become uncontrolled.- Monitor eosinophil levels and allergy symptoms. 6. Pharmacy- Confirm [facility] as the patient's preferred pharmacy.Plan:- Send dexamethasone level prescription to the confirmed pharmacy. Spent 15 minutes preventative counseling patient on dietary recommendations and changes in setting of hyperglycemia- need to restrict refined sugars and processed foods and incorporate up to 150 minutes of moderate level activity weekly. Spent 25 minutes preparing to see the patient (ex review of tests/chart), obtaining and / or reviewing separately obtained history, performing a medically appropriate examination and/or evaluation, counseling and educating the patient/family/caregiver , ordering medications, tests, or procedures, referring and communicating with other health care tech, documenting clinical information in the electronic or other health record, independently interpreting results and communicating results to the patient/family/caregiver and care coordinating patient plan. Patient alert and oriented x 4 and aware of discussion noted above and in agreeance to plan in management of elevated eosinophils/allergies, weight management/obesity and screening for hypercortisolism. 05/18/2024 Other Assessment and Plan: Obesity with weight lossPatient has experienced significant weight loss since starting tirzepatide 7.5 mg in January, with a decrease from 216 lbs to 180 lbs.Increase tirzepatide dosage to 10 mg, maintaining the same cost as the 7.5 mg dose.Schedule a follow-up DEXA scan to assess bone density and body composition.Conduct a 24-hour urine collection study, instructing the patient to refrigerate the sample.Perform a midnight saliva cortisol test to evaluate for potential endocrine disorders.Order ACTH and DHEAS tests to assess pituitary and adrenal axis hormone levels. Possible hypercortisolismPatient' s recent cortisol test was borderline, indicating the need for further evaluation to determine the impact of cortisol on weight loss progress.Await results of the dexamethasone suppression test to further assess cortisol levels.Conduct additional cortisol studies as part of the comprehensive evaluation for hypercortisolism.Monitor the patient for clinical signs and symptoms consistent with hypercortisolism, including delayed wound healing and easy bruising. HypercalciuriaBlood tests show normal parathyroid function but elevated urinary calcium levels, necessitating further investigation.Perform additional evaluations to determine the cause of hypercalciuria.Monitor the patient for the potential development of kidney stones, given the elevated urinary calcium levels. Follow-up:Schedule a follow-up appointment to review the results of the tests and evaluations mentioned above.Encourage the patient to report any new symptoms or concerns that may arise in the meantime. Spent 15 minutes preventative counseling patient on dietary recommendations and changes in setting of hyperglycemia- need to restrict refined sugars and processed foods and incorporate up to 150 minutes of moderate level activity weekly. Spent 25 minutes preparing to see the patient (ex review of tests/chart), obtaining and / or reviewing separately obtained history, performing a medically appropriate examination and/or evaluation, counseling and educating the patient/family/caregiver , ordering medications, tests, or procedures, referring and communicating with other health care tech, documenting clinical information in the electronic or other health record, independently interpreting results and communicating results to the patient/family/caregiver and care coordinating patient plan. Patient alert and oriented x 4 and aware of discussion noted above and in agreeance to plan in management of 06/15/2024 Other Assessment and Plan: ObesityPatient has experienced a weight loss of 16 pounds since initiating tirzepatide treatment in April, with a good tolerance to the medication and no significant side effects reported.Continue tirzepatide therapy for an additional month. Given 4 prefilled syringes of 7.5 mg dose. Schedule a follow-up appointment in one month to monitor progress and assess weight loss continuation. Possible HypercortisolismRecent dexamethasone suppression test result was 1.5, indicating a borderline positive result for hypercortisolism, alongside symptoms of insomnia and easy bruising.Sleep apnea has been ruled out as a confounding factor.Await ACTH level results to determine the source of hypercortisolism (pituitary or adrenal).Patient is instructed to complete a 24-hour urine cortisol collection and perform salivary cortisol tests on two separate nights.Depending on ACTH results, plan for either adrenal or pituitary imaging.Review results of the repeat DEXA scan performed today. InsomniaThe patient reports significant difficulty sleeping, potentially linked to the suspected hypercortisolism.The approach to address insomnia will be determined based on the outcomes of the hypercortisolism evaluation. Follow-up:Encourage patient to report any new or worsening symptoms promptly. Spent 20 minutes preparing to see the patient (ex review of tests/chart), obtaining and / or reviewing separately obtained history, performing a medically appropriate examination and/or evaluation, counseling and educating the patient/family/caregiver , ordering medications, tests, or procedures, referring and communicating with other health care tech, documenting clinical information in the electronic or other health record, independently interpreting results and communicating results to the patient/family/caregiver and care coordinating patient plan. Patient alert and oriented x 4 and aware of discussion noted above and in agreeance to plan in management of obesity/weight management and new concern for hypercortisolism. 07/06/2024 Other Suspected Roel's SyndromePatient has undergone saliva and urine tests for cortisol. Urine test was elevated, but saliva test was borderline at 0.14 (positive threshold at 0.2). Two dexamethasone suppression tests were performed: the first was borderline at 1.5, while the second in June showed higher results (20, considered high). Patient reports fatigue, lack of energy, sleep issues, and difficulty with wound healing. These symptoms, along with the test results, suggest possible Eminence's syndrome. The source of excess cortisol production needs to be identified.- CT scan of adrenal glands without contrast to check for growths or adenomas- Consider adrenalectomy if a growth is found- Continue monitoring cortisol levels- Educate patient on potential treatment options and timeline for symptom improvement (3-6 months)-she has anxiety, insomnia and continued easy bruising and concern for insulin resistance and DST was markedly positive at 20.1 ug/dL on most recent DST with low ACTH of 7 pg/ML Obesity, ImprovingPatient has lost almost 20 pounds since initial visit, with current weight at 188 pounds. BMI indicates overweight range, not obese. Patient's goal weight is 150 pounds. Currently on tirzepatide 7.5 mg for weight management with no reported side effects of nausea or vomiting.- Continue tirzepatide 7.5 mg-provided 4 prefilled syringes in clinic today- Renew prescription for tirzepatide- Monitor weight loss progress Metabolic AbnormalitiesPatient had high calcium levels in April, increasing risk for kidney stones. Insulin resistance status needs to be evaluated.- Order laboratory tests: A1c, insulin, SHAW-IR score- Monitor calcium levels Chronic PainPatient reports dull, achy lower back pain. History of two bulging discs. Previous fractures include arm (age 8-9) and pelvis/tailbone (2011) from a fall.- Continue monitoring pain levels- Consider further evaluation if pain worsens or new symptoms develop Spent 25 minutes preparing to see the patient (ex review of tests/chart), obtaining and / or reviewing separately obtained history, performing a medically appropriate examination and/or evaluation, counseling and educating the patient/family/caregiver , ordering medications, tests, or procedures, referring and communicating with other health care tech, documenting clinical information in the electronic or other health record, independently interpreting results and communicating results to the patient/family/caregiver and care coordinating patient plan. Patient alert and oriented x 4 and aware of discussion noted above and in agreeance to plan in management of Patient picked up and paid for four 7.5mg tirzepatide injections lot #[id number] 08/04/2024 Other Assessment and Plan: 1. 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)- Patient's cortisol levels were elevated based on recent blood work and ACTH labs from June- Previous dexamethasone suppression test yielded high results, while urine and saliva tests were normal- Patient exhibits some symptoms consistent with hypercortisolism, including fatigue, occasional diarrhea, and daily heart racing- No adrenal gland abnormalities were observed on imaging- Recent antibiotic use until the end of May may have affected previous test results- Repeat dexamethasone suppression test before August to confirm cortisol levels- Monitor for changes in symptoms associated with hypercortisolism 2. Obesity with recent weight loss- Patient has lost 20 pounds recently and an additional 8 pounds on tirzepatide therapy- Current dose is 7.5 mg, which has been effective for weight loss- Patient is not diabetic or hypertensive- Blood pressure today was 137/78- Continue tirzepatide 7.5 mg- Prescribe new formulation of tirzepatide with B12 to address fatigue- Monitor weight loss progress and any side effects 3. Multiple cysts (liver, spleen, pancreas)- CT scan on July 26 revealed cysts in the liver and spleen, as well as a tiny cyst in the pancreatic uncinate process- Patient has a history of polycystic ovarian syndrome, which may be related to the presence of cysts in other organs- Schedule follow-up imaging in 6 months (January or January)- Monitor for any changes in symptoms or cyst size 4. Fatigue- Patient reports ongoing fatigue despite weight loss and current tirzepatide therapy- No improvement noted with current treatment- Transition to new tirzepatide formulation with B12 to potentially address fatigue- Reassess fatigue symptoms at next follow-up Spent 25 minutes preparing to see the patient (ex review of tests/chart), obtaining and / or reviewing separately obtained history, performing a medically appropriate examination and/or evaluation, counseling and educating the patient/family/caregiver , ordering medications, tests, or procedures, referring and communicating with other health care tech, documenting clinical information in the electronic or other health record, independently interpreting results and communicating results to the patient/family/caregiver and care coordinating patient plan. Patient alert and oriented x 4 and aware of discussion noted above and in agreeance to plan in management of obesity/weight management, hypercortisolism, and cysts/liver/small pancreatic (repeat imaging in 6 months). 09/01/2024 Other Assessment and Plan: 1. Weight managementAssessment:- Patient has lost additional 5 pounds since last visit, with BMI approaching normal range- Current weight management strategy appears effective- A1C and insulin levels normal, with no signs of insulin resistance- Thyroid function within normal limits- Roel's syndrome ruled out based on normal salivary cortisol tests (0.03 and 0.14, both below positive threshold of 0.2) and 24-hour urine cortisone (12, with abnormal being 40)- CT scan on August 26 showed no abnormalities- Serum cortisol consistently below 1.8, ranging from 1.4 to 1.6- Currently using tirzepatide for weight management Plan:- Continue current weight management strategy, including tirzepatide (dose not specified)- Target weight goal: 150 lbs or less- Monitor for side effects of tirzepatide (nausea, vomiting, constipation)- Follow up to reassess weight, aiming for 157 lbs or less- Consider rechecking cortisol if weight loss plateaus- Provide 4 more tirzepatide injections 2. Possible food allergyAssessment:- History of allergies and skin rashes, which may be indicative of food allergy- Gluten sensitivity being considered as potential cause Plan:- Consider gluten-free diet trial- Recommend dermatology consultation for skin biopsy to evaluate for autoimmune condition 3. Menopausal managementAssessment:- Menopausal status not explicitly stated, but estrogen therapy mentioned Plan:- Resume estrogen therapy if patient has supply at home Spent 20 minutes preparing to see the patient (ex review of tests/chart), obtaining and / or reviewing separately obtained history, performing a medically appropriate examination and/or evaluation, counseling and educating the patient/family/caregiver , ordering medications, tests, or procedures, referring and communicating with other health care tech, documenting clinical information in the electronic or other health record, independently interpreting results and communicating results to the patient/family/caregiver and care coordinating patient plan. Patient alert and oriented x 4 and aware of discussion noted above and in agreeance to plan in management of weight management, overweight, menopausal symptoms. 09/29/2024 Other Assessment and Plan: 1. Weight Management- Current weight 166 lbs, down from 162 lbs at last visit- BMI currently 26, goal weight 150 lbs for BMI 22-23- Tolerating therapy well without side effects- Normal cortisol, adrenal tests and CT scan in July- Continue current therapy at present dose- Consider dose increase from 7.5 mg to 10 mg if desired- Maintenance strategy options: - Reduce to low dose or half dose at goal weight - Trial medication holiday with lifestyle management- Dispense 4 of high dose (30 unit, 7.5 mg) medication-tirzepatide / B12 combination- Consider thyroid function and dexamethasone suppression test if goals not met- Follow up in one month 2. 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- Previous trials of Ambien 10-15 years ago with partial response- Melatonin ineffective at current timing- Recommend melatonin administration 3-4 hours before bedtime- Consider ramelteon if melatonin timing adjustment ineffective Spent 15 minutes preparing to see the patient (ex review of tests/chart), obtaining and / or reviewing separately obtained history, performing a medically appropriate examination and/or evaluation, counseling and educating the patient/family/caregiver , ordering medications, tests, or procedures, referring and communicating with other health care tech, documenting clinical information in the electronic or other health record, independently interpreting results and communicating results to the patient/family/caregiver and care coordinating patient plan. Patient alert and oriented x 4 and aware of discussion noted above and in agreeance to plan in management of weight management and insomnia. 10/27/2024 Other Assessment and Plan: 1. Obesity, improving- Continue current GLP agonist at 7.5 mg tirzepatide weekly- Target weight: 145 lbs- Once target weight is reached, begin weaning process and spread out injections for maintenance- Perform blood work in fall unless weight loss plateaus- Follow up in 1 month 2. Insomnia- Prescribe ramelteon for 30-day trial with refills- Submit prescription to insurance for coverage determination 3. Menopausal management- Continue current estrogen therapy- Maintain weight above 140 lbs to support bone health- Educate on importance of maintaining bone strength during menopause Spent 15 minutes preparing to see the patient (ex review of tests/chart), obtaining and / or reviewing separately obtained history, performing a medically appropriate examination and/or evaluation, counseling and educating the patient/family/caregiver , ordering medications, tests, or procedures, referring and communicating with other health care tech, documenting clinical information in the electronic or other health record, independently interpreting results and communicating results to the patient/family/caregiver and care coordinating patient plan. Patient alert and oriented x 4 and aware of discussion noted above and in agreeance to plan in management of weight management and insomnia. 11/28/2024 Giacomo Motley, a female patient with a BMI of 25, presents for follow-up of weight loss management and sleep issues. Obesity Assessment: Patient has been on weight loss medication, currently at 7.5 mg (presumably semaglutide). She is tolerating the medication well with no reported side effects such as nausea, vomiting, or constipation. Weight loss progress is evident, with a 3-pound reduction noted since the last visit. Current weight is 153 pounds (measured in clinic) or 150 pounds (measured at home this morning). BMI is calculated at 25, indicating the patient is at the upper limit of normal weight range. Energy levels appear to be maintained. Plan: - Increase tirzepatide/B12 dose to 10 mg (40 units) - Continue weight monitoring - Reassess at next follow-up visit Insomnia Assessment: Patient has been on ramelteon for approximately one month with inconsistent results. She reports that the medication is hit or miss in its effectiveness. Patient has a history of using Ambien (zolpidem) over 10 years ago. No history of narcolepsy reported. Plan: - Discontinue ramelteon - Start suvorexant (Belsomra) 10 mg PO qhs - Take 60-90 minutes before desired sleep time - Prescribe for 30-day trial - Follow up to assess efficacy of new medication Spent 15 minutes preparing to see the patient (ex review of tests/chart), obtaining and / or reviewing separately obtained history, performing a medically appropriate examination and/or evaluation, counseling and educating the patient/family/caregiver , ordering medications, tests, or procedures, referring and communicating with other health care tech, documenting clinical information in the electronic or other health record, independently interpreting results and communicating results to the patient/family/caregiver and care coordinating patient plan. Patient alert and oriented x 4 and aware of discussion noted above and in agreeance to plan in management of insomnia and weight management. 12/25/2024 Giacomo Motley, a female patient, presents for follow-up of [...] estradiol regimen (dose and frequency not specified) HyperlipidemiaAssessment : Patient is currently managed on rosuvastatin for [...] examination and/or evaluation, counseling and educating the patient/family/caregiver , ordering medications, tests, or procedures, referring and communicating with other health care tech, documenting clinical information in the electronic or other health record, independently interpreting results and communicating results to the patient/family/caregiver and care coordinating patient plan. Patient alert and oriented x 4 and aware of discussion noted above and in agreeance to plan in management of weight management. Plan Of Treatment Pending Test Test Name Order Date *CT ABDOMEN W/O CONTRAST [id number] Next Appt Details Provider Name:Aleena Barlow, 11:20:00 AM, [address] [place] [address], [id number], Insurance Providers Payer Name Payer Address Payer Phone Subscriber Number Group Number Insured Name Patient Relationship to Insured Coverage Start Date Coverage End Date [employer] [address] [address] [place] [phone] [id number] Tiesha Byrnes Self - patient is the insured Medical (General) History Medical History History ICD Code High Cholesterol Fibromyalgia Surgical History Surgery Date(Month/Year) hysterectomy vaginal cholecystectomy Tubal ligation Hospitalization History Reason Date(Month/Year) 2012- Broken Pelvis
--- OUTSIDE RECORDS SUMMARY | 2024-12-26 00:44 | XMS_ITS | Patient Health Record ---
Author Organization [facility] Address [address] [address] Care Team Providers Care Coat Maker Name Role Phone ANGEL CT Primary Care Provider Aura Perkins Unavailable [phone] Aleena Barlow Unavailable [phone] Joanne Escobar Unavailable [phone] Migration, Provider Unavailable Unavailable Allergies Allergen (clinical drug ingredient) Drug/Non Drug Allergy documented on EMR Reaction Allergy Type Onset Date Status Fish Oil anaphylaxis Drug Allergy Activ e Results Component Value Reference Range Notes DEXAMETHASONE Reviewed date:02/24/2024 08:39:18 AM Interpretation: Performing Lab:[facility],, [address] [place], [address] Liz Paris MD,PhD,AN Notes/Report: FASTING:YES FASTING: YES DEXAMETHASONE 351 Reference Ranges for Dexamethasone: Baseline: Less than 20 ng/dL 1 mg dexamethasone overnight: 180-550 ng/dL (8:00-10:00 AM) This test was developed and its analytical performance characteristics have been determined by [facility]. It has not been cleared or approved by FDA. This assay has been validated pursuant to the CLIA regulations and is used for clinical purposes. CORTISOL, TOTAL Reviewed date:02/11/2024 07:35:44 AM Interpretation: Performing Lab:[facility], [address] [place], [address] Zoran Dyer MD Notes/Report: FASTING:YES FASTING: YES COMPREHENSIVE METABOLIC PANE L Reviewed date:02/11/2024 10:10:20 PM Interpretation: Performing Lab:[facility], [address] , [place], [address] LiCristina Dyer Notes/Report: FASTING:YES FASTING: YES VITAMIN D, 25-HYDROXY, LC/MS /MS Reviewed date:02/14/2024 12:34:58 PM Interpretation: Performing Lab:[facility], [address], [place], [address] Zoran Dyer MD Notes/Report: FASTING:YES FASTING: YES ACTH, PLASMA Reviewed date:02/14/2024 12:30:21 PM Interpretation: Performing Lab:[facility], [address], [place], [address] Vincent Reyez M.D.,PhD Notes/Report: FASTING:YES FASTING: YES T3, FREE Reviewed date:02/11/2024 10:06:12 PM Interpretation: Performing Lab:[facility], [address], [place], [address] Zoran Dyer MD Notes/Report: FASTING:YES FASTING: YES CORTISOL, TOTAL Reviewed date:02/11/2024 10:06:56 PM Interpretation: Performing Lab:[facility], [address], [place], [address] Zoran Dyer MD Notes/Report: FASTING:YES FASTING: YES DHEA SULFATE Reviewed date:02/11/2024 10:06:33 PM Interpretation: Performing Lab:[facility], [address], [place], [address] Zoran Dyer MD Notes/Report: FASTING:YES FASTING: YES HEMOGLOBIN A1c Reviewed date:02/14/2024 12:30:14 PM Interpretation: Performing Lab:[facility], [address] , [place], [address] Zoran Dyer Notes/Report: FASTING:YES FASTING: YES INSULIN Reviewed date:02/11/2024 10:06:21 PM Interpretation: Performing Lab:[facility], [address] [place], [address] Zoran Dyer MD Notes/Report: FASTING:YES FASTING: YES CBC (INCLUDES DIFF/PLT) Reviewed date:02/11/2024 10:07:25 PM Interpretation: Performing Lab:[facility], [address] [place], [address] LiCristina Dyer Notes/Report: FASTING:YES FASTING: YES VITAMIN B12/FOLATE, SERUM PA HEATHER Reviewed date:02/11/2024 10:06:03 PM Interpretation: Performing Lab:MAURO, [facility], [address], [place], [address] Zoran Dyer MD Notes/Report: FASTING:YES FASTING: YES IRON AND TOTAL IRON BINDING CAPACITY Reviewed date:02/11/2024 10:10:06 PM Interpretation: Performing Lab:[facility], [address], [place], [address] Zoran Dyer MD Notes/Report: FASTING:YES FASTING: YES T4, FREE Reviewed date:02/14/2024 12:30:29 PM Interpretation: Performing Lab:[facility], [address] [place], [address] [facility] [address] Notes/Report: FASTING:YES FASTING: YES TSH Reviewed date:02/11/2024 10:13:05 PM Interpretation: Performing Lab:[facility], [address] [place], [address] [facility] Dyer Notes/Report: FASTING:YES FASTING: YES THYROID PEROXIDASE ANTIBODIE S Reviewed date:02/11/2024 10:07:06 PM Interpretation: Performing Lab:LATOYA, [facility], [address] [facility], [place], [address] Doron Mirza Notes/Report: FASTING:YES FASTING: YES THYROID PEROXIDASE ANTIBODIES <1 <9 IU/mL COMPREHENSIVE METABOLIC PANE L Reviewed date:04/01/2024 02:16:37 PM Interpretation: Performing Lab:[facility], [address], [place], [place], [address] Zoran Dyer MD Notes/Report: COLLECTION KIT GIVEN TO PATIENT. PATIENT ADVISED TO RETURN. T3, FREE Reviewed date:04/01/2024 02:18:52 PM Interpretation: Performing Lab:[facility], [address] [place], [address] Zoran Dyer MD Notes/Report: COLLECTION KIT GIVEN TO PATIENT. PATIENT ADVISED TO RETURN. CBC (INCLUDES DIFF/PLT) Reviewed date:04/01/2024 02:16:03 PM Interpretation: Performing Lab:[facility], [address] [place], [address] Zoran Dyer Notes/Report: COLLECTION KIT GIVEN TO PATIENT. PATIENT ADVISED TO RETURN. VITAMIN B12/FOLATE, SERUM PA HEATHER Reviewed date:04/01/2024 02:19:04 PM Interpretation: Performing Lab:[facility], [address] [place], [address] Zoran Dyer MD Notes/Report: COLLECTION KIT GIVEN TO PATIENT. PATIENT ADVISED TO RETURN. IRON AND TOTAL IRON BINDING CAPACITY Reviewed date:04/01/2024 02:16:18 PM Interpretation: Performing Lab:[facility], [address] [place], [address] Zoran Dyer MD Notes/Report: COLLECTION KIT GIVEN TO PATIENT. PATIENT ADVISED TO RETURN. T4, FREE Reviewed date:04/01/2024 02:18:43 PM Interpretation: Performing Lab:[facility], [address] [place], [address] Zoran Dyer Notes/Report: COLLECTION KIT GIVEN TO PATIENT. PATIENT ADVISED TO RETURN. PTH, INTACT AND CALCIUM Reviewed date:04/01/2024 02:16:11 PM Interpretation: Performing Lab:[facility], [address] [place], [address] Zoran Dyer MD Notes/Report: COLLECTION KIT GIVEN TO PATIENT. PATIENT ADVISED TO RETURN. TSH Reviewed date:04/01/2024 02:18:34 PM Interpretation: Performing Lab:[facility], [address] [place], [address] Zoran Dyer Notes/Report: COLLECTION KIT GIVEN TO PATIENT. PATIENT ADVISED TO RETURN. CALCIUM, 24 HOUR URINE (W/ C REATININE) Reviewed date:04/18/2024 10:30:59 PM Interpretation: Performing Lab:[facility], [address], [place], [address] Zoran Dyer MD Notes/Report: SPLIT 03/29/2024 FROM [id number] URINE VOLUME: 1300/24 CALCIUM/CREATININE RATIO 312 30-275 mg/g crea t CALCIUM, 24 HOUR URINE 276 Reference Range 35-250 Low calcium diet 35-200 CREATININE, 24 HOUR URINE 0.88 0.50-2.15 g/24 h DEXAMETHASONE Reviewed date:05/20/2024 10:03:45 AM Interpretation: Performing Lab:[facility],, [address] [place], [address] Liz Paris MD,PhD,AN Notes/Report: DEXAMETHASONE 295 Reference Ranges for Dexamethasone: Baseline: Less than 20 ng/dL 1 mg dexamethasone overnight: 180-550 ng/dL (8:00-10:00 AM) This test was developed and its analytical performance characteristics have been determined by [facility]. It has not been cleared or approved by FDA. This assay has been validated pursuant to the CLIA regulations and is used for clinical purposes. CORTISOL, TOTAL Reviewed date:05/12/2024 05:30:21 PM Interpretation: Performing Lab:[facility], [address], [place], [address] Zoran Dyer MD Notes/Report: ACTH, PLASMA (Not yet review ed by provider) Interpretation: Performing Lab:[facility], [address], [place], [address] Vincent Reyez M.D.,PhD Notes/Report: DHEA SULFATE (Not yet review ed by provider) Interpretation: Performing Lab:[facility], [address], [place], [address] Zoran Dyer MD Notes/Report: T4, FREE (Not yet reviewed b y provider) Interpretation: Performing Lab:, [facility], [address] [place], [address] [facility] Ele Notes/Report: TSH (Not yet reviewed by pro vider) Interpretation: Performing Lab:, [facility], [address] [place], [address] [facility] Notes/Report: DEXAMETHASONE (Not yet revie wed by provider) Interpretation: Performing Lab:EZ, [facility],, [address] [place] [place], [address] Liz Paris MD,PhD,AN Notes/Report: CORTISOL, TOTAL (Not yet rev iewed by provider) Interpretation: Performing Lab:[place], [facility], [address], [place], [address] LiCristina Dyer MD Notes/Report: Reason For Referral No Information Medications Medication SIG (Take, Route, Frequency, Duration) Notes Start Date End Date Status ROSUVASTATIN 20 mg 1 tab(s) orally once a day Active CALCIUM CARBONATE 1250 mg 1 tab(s) orall y 3 times a day x2 daily Active ZYRTEC 10 mg 1 tab(s) orally once a day Active ALIGN 4 mg 1 cap(s) orally once a day Active VITAMIN E Active TOLTERODINE 4 mg 1 cap(s) orally once a day Active ESTRADIOL 0.5 mg 1 tab(s) orally once a day Active DULOXETINE 60 mg 1 cap(s) orally once a day Active Problems Problem Type SNOMED Code ICD Code Onset Dates Problem Status W/U Status Risk Notes Problem Seasonal allergic rhinitis (717679940) Other seasonal allergic rhinitis (J30.2) Active confirmed Problem Allergic rhinitis (17871074) Other allergic rhinitis (J30.89) Active confirmed Problem Obesity (258921533) Obesity, unspecified (E66.9) Active confirmed Problem Hypercalcemia (78880345) Hypercalcemia (E83.52) Active confirmed Problem Allergic rhinitis (11942004) Allergic rhinitis, unspecified (J30.9) Active confirmed Problem Obese class II (470226224531608) Body mass index [BMI] 35.0-35.9, adult (Z68.35) Active confirmed Vital Signs Heart Rate 106 /min 05/18/2024 SpO2: 93% Blood pressure diastolic 77 mm Hg 05/18/2024 SpO 2: 93% Height 65 in 05/18/2024 SpO2: 93% Blood pressure systolic 119 mm Hg 05/18/2024 SpO2 : 93% Weight 180.0 lbs 05/18/2024 SpO2: 93% BMI 29.95 kg/m2 05/18/2024 SpO2: 93% Encounters Encounter Location Date Provider Diagnosis [facility] [address] [place] [address] 03/18/2024 Provider Migration [facility]ena [employer] [address] [place] [address] 06/15/2024 Aleena Barlow [facility]. Vel[facility]co [address] [place] [address] 02/01/2024 Aura Perkins Abnormal weight gain R63.5 ; Obesity, unspecified E66.9 ; Other fatigue R53.83 and Body mass index [BMI] 35.0-35.9, adult Z68.35 [facility] [employer] [address] [place] [address] 02/25/2024 Aleena [employer] Obesity, unspecified E66.9 ; Hypercalcemia E83.52 ; Other fatigue R53.83 and Dietary counseling and surveillance Z71.3 [facility] [address] [place] [address] 03/16/2024 Joanne Escobar Allergic rhinitis, unspecified J30.9 [facility] [address] [place] [address] 03/20/2024 Aleena [employer] Obesity, unspecified E66.9 and Dietary counseling and surveillance Z71.3 [facility] [address] [employer] [address] [place] [address] 03/29/2024 Joanne Escobar Other allergic rhinitis J30.89 [facility] [address] [place] [address] 04/03/2024 LeaAna Escobar Other allergic rhinitis J30.89 [facility] - [address]ena [address] [place] [address] 04/04/2024 LeaAna Escobar Other allergic rhinitis J30.89 [facility] - Aleean [address] [address] [place] [address] 04/05/2024 LeaAna Escobar Other allergic rhinitis J30.89 [facility] - Aleena [address] [address] [place] [address] 04/06/2024 LeaAna Escobar Other allergic rhinitis J30.89 [facility] - [address]ena [address] [place] [address] 04/07/2024 LeaAna Escobar Other allergic rhinitis J30.89 [facility] - Aleena [address] [address] [place] [address] 04/10/2024 LeaAna Escobar Other allergic rhinitis J30.89 [facility] - Aleena [address] [place] [address] 04/11/2024 LeaAna Escobar Other allergic rhinitis J30.89 [facility] - [address]ena [address] [place] [address] 04/12/2024 LeaAna Escobar Other allergic rhinitis J30.89 [facility] - [address]ena [address] [address] [place] [address] 04/13/2024 LeaAna Escobar Other allergic rhinitis J30.89 [facility] - [address] [address] [place] [address] 04/17/2024 Aleena Wood Obesity, unspecified E66.9 ; Dietary counseling and surveillance Z71.3 and Other seasonal allergic rhinitis J30.2 [facility] - Aleena [address] [address] [place] [address] 05/18/2024 Aleena Wood Obesity, unspecified E66.9 ; Hypercalcemia E83.52 and Dietary counseling and surveillance Z71.3 [facility] - Aleena [address] [place] [address] 03/01/2024 CT VELASCO [facility] - Aleena [employer] [address] [place] [address] 03/13/2024 CT VELASCO Assessments Encounter Date Diagnosis (ICD Code) Assessment [...] tirzepatide 7.5 mg weekly lot number of [id number] 04/17/2024 Dietary counseling and surveillance (ICD-10 - Z71.3) 05/18/2024 Obesity, unspecified (ICD-10 - E66.9) 02/01/2024 Other fatigue (ICD-10 - R53.83) z 02/25/2024 Other fatigue (ICD-10 - R53.83) 04/17/2024 Other seasonal allergic rhinitis (ICD-10 - J30.2) 05/18/2024 Hypercalcemia (ICD-10 - E83.52) 02/01/2024 Body mass index [BMI] 35.0-35.9, adult (ICD-10 - Z68.35) z 02/25/2024 Dietary counseling and surveillance (ICD-10 - Z71.3) 05/18/2024 Dietary counseling and surveillance (ICD-10 - Z71.3) LOT [id number] 10 mg tirzepatide = 4 prefilled syringes provided 02/01/2024 Other 1. Obesity - Plan: Start [...] symptoms. 7. Mildly low iron levels- Recommend czyo-aly-igfltpl chelated iron supplement or obtaining iron from a pharmacy. Monitor and follow up on iron levels and related symptoms. 8. Mildly elevated calcium levels (9.9)- Monitor for symptoms of hyperparathyroidism , such as dizziness, off-balance, high blood pressure, [...] examination and/or evaluation, counseling and educating the patient/family/healthcare liaison, ordering medications, tests, or procedures, referring and communicating with other health pharmacy care coordinator, documenting clinical information in the electronic or other health record, independently interpreting results and communicating results to the patient/family/healthcare liaison and care coordinating patient plan. Patient alert [...] tirzepatide 4 7.5 mg provided lot number [id number] Assessment and Plan: 1. Weight management- Patient [...] examination and/or evaluation, counseling and educating the patient/family/healthcare liaison, ordering medications, tests, or procedures, referring and communicating with other health pharmacy care coordinator, documenting clinical information in the electronic or other health record, independently interpreting results and communicating results to the patient/family/healthcare liaison and care coordinating patient plan. Patient alert [...] levels and allergy symptoms. 6. Pharmacy- Confirm [facility] as the patient's preferred pharmacy.Plan:- Send dexamethasone [...] examination and/or evaluation, counseling and educating the patient/family/healthcare liaison, ordering medications, tests, or procedures, referring and communicating with other health pharmacy care coordinator, documenting clinical information in the electronic or other health record, independently interpreting results and communicating results to the patient/family/healthcare liaison and care coordinating patient plan. Patient alert and oriented x 4 and aware of discussion noted above and in agreeance to plan in management of elevated eosinophils/allergi es, weight management/obesity and screening for hypercortisolism. 05/18/2024 [...] pituitary and adrenal axis hormone levels. Possible hypercortisolismPat ient's recent cortisol test was borderline, indicating the need for further evaluation to determine the impact of cortisol on weight loss progress.Await results of the dexamethasone suppression test to further assess cortisol levels.Conduct additional cortisol studies as part of the comprehensive evaluation for hypercortisolism.Mo nitor the patient for clinical signs and symptoms consistent with hypercortisolism, including delayed wound healing and easy bruising. HypercalciuriaBlood tests show normal parathyroid function but elevated urinary calcium levels, necessitating further investigation.Perfo rm additional evaluations to determine the cause of hypercalciuria.Christine tor the patient for the potential development of [...] examination and/or evaluation, counseling and educating the patient/family/healthcare liaison, ordering medications, tests, or procedures, referring and communicating with other health pharmacy care coordinator, documenting clinical information in the electronic or other health record, independently interpreting results and communicating results to the patient/family/healthcare liaison and care coordinating patient plan. Patient alert and oriented x 4 and aware of discussion noted above and in agreeance to plan in management of Plan Of Treatment Pending Test Test Name Order Date ACTH, PLASMA 06/13/2024 DEXAMETHASONE 06/15/2024 CORTISOL, TOTAL 06/15/2024 DHEA SULFATE 06/13/2024 T4, FREE 06/13/2024 TSH 06/13/2024 Insurance Providers Payer Name Payer Address Payer Phone Subscriber Number Group Number Insured Name Patient Relationship to Insured Coverage Start Date Coverage End Date [facility] [address] [place] [address] [id number] Tiesha Byrnes Self - patient is the insured Medical (General) History Medical History History ICD Code High Cholesterol Fibromyalgia Surgical History Surgery Date(Month/Year) Tubal ligation cholecystectomy hysterectomy vaginal Hospitalization History Reason Date(Month/Year) 2012- Broken Pelvis
[2024-12-26 06:16] VITALS: BP 110/68; PULSE 74; RESP 16; TEMP 35.9; O2SAT 100; BMI 24.6
[2024-12-26] MEDS: LACTATED RINGERS 1,000 ML 150 ML IV CONT (06:23)
[2024-12-26] MEDS: SIMETHICONE ORAL SUSPENSION 20 MG/0.3 ML 30 ML BOTTLE 1.8 ML PO (06:27)
--- NOTE | 2024-12-26 07:36 | PM.IMHP ---
H&P: HPI History of Present Illness Date/Time: 12/26/24 07:36 Chief Complaint: Dysphagia Narrative: the patient has been getting intermittent episodes of dysphagia to pills and solid food for the past 2-3 years. Of note, the patient underwent an EGD almost 20 years ago for same complaints, and states she has undergone dilatation after which she did well for more than 15 years. She is now referred for EGD and possible dilatation. Review of Systems Review of Systems: All systems reviewed & are unremarkable except as noted in HPI and below PMFSH Past Medical History Medical History Viraj-Danlos disease Fibromyalgia Screening mammogram, encounter for Vitamin D deficiency High cholesterol History of fractured pelvis Seasonal allergies Heart murmur Chronic UTI Surgical History Surgical History History of cholecystectomy (~01/2013) History of total vaginal hysterectomy (TVH) (09/04/04) menometrorrhagia/dysmenorrhea History of tubal ligation (10/12/02) Family History Family History Mother Family history of osteoporosis Patient's mother is in good health Family history of malignant neoplasm of ovary, Onset Age: 36 Family history of lupus erythematosus Grandparent Hypertension Father Family history of eczema Patient's father is in good health Sibling Patient's sister is in good health Family history of allergic disorder Social History Social History (Updated 07/24/24 @ 15:30 by JUAN F Rodriguez) Smoking status: Never smoker Second hand tobacco smoke exposure: No Alcohol intake: current Alcohol use details: rarely Substance use: never Substance use type: does not use Do You Feel Safe in your Home?: Yes Lack of Transportation: No Lack of Food: Never True Current Housing: I Have Housing Concerned About Future Housing: No Difficulty Paying Gas/Electric Bills: No Difficulty Paying for Meds: No Currently Unemployed: No Education: Associate Degree Difficulty w/ Childcare or Family Care: No Living arrangements: with family Additional living arrangements comments: Occupation/Education: occupation 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 Gender identity (if verbalized by the patient): Female Sexual Orientation (if Verbalized by the Patient): Straight or Heterosexual Spiritual care concerns: No Meds Home Medications and Allergies Home Medications ?Medication ?Instructions ?Recorded ?Confirmed ?Type L.acidop,casei,lactis,rham-B.lact,mariam 1 cap PO DAILY 07/04/21 12/26/24 History 625 mg (10 billion cell) capsule (Advanced Probiotic) rosuvastatin 20 mg tablet 20 mg PO DAILY 07/04/21 12/26/24 History cetirizine 5 mg tablet 10 mg PO DAILY 06/08/23 12/26/24 History duloxetine 30 mg capsule,delayed 30 mg PO BID 12/16/23 12/26/24 History release (Cymbalta) tolterodine 4 mg capsule,extended 4 mg PO DAILY #90 caps 07/24/24 12/26/24 Rx release 24 hr (Detrol LA) estradiol 0.5 mg tablet 0.5 mg PO DAILY 90 days #90 tabs 09/28/24 12/26/24 Rx tirzepatide (weight loss) 10 10 mg subcut WEEKLY weight loss 12/11/24 12/26/24 History mg/0.5 mL subcutaneous pen injector (Zepbound) Allergies Allergy/AdvReac Type Severity Reaction Status Date / Time fresh fish AdvReac Intermediate Swelling Uncoded 12/26/24 06:14 of Lip/Tongue/Throat Vital Signs Vital Signs - 24 hr 12/26/24 06:16 Temperature 96.7 F L Pulse Rate 74 Respiratory Rate 16 Blood Pressure 110/68 Pulse Oximetry 100 Oxygen Delivery Room Air Exam Const: General: cooperative and healthy appearing Resp: Effort & Inspection: normal respiratory effort and able to speak in complete sentences Auscultation: clear to auscultation bilaterally Cardio: Rate: regular rate Rhythm: regular rhythm GI: Inspection: normal to inspection GI Palp: No No hepatosplenomegaly present Auscultation: normal bowel sounds Rectal Exam: deferred Skin: General skin exam: normal color Psych: Appearance: grossly normal Mental Status: mental status grossly normal Assessment and Plan Assessment and plan (1) Dysphagia: Code(s): R13.10 - Dysphagia, unspecified Status: Acute Assessment and Plan: The patient is deemed a good candidate for the procedure. Consent signed. Will proceed.
[2024-12-26] MEDS: BENZOCAINE (*SP) 60 ML SPRAY CAN (HURRICAINE) 1 SPRAY MUCOUS MEM (07:38)
--- NOTE | 2024-12-26 07:48 | S_PTH ---
PATIENT: Tiesha Byrnes LOC: [facility] Rae#:[id number] AGE/SX: 49/F ROOM: RE12/26/[address]: Leandro Cobos MD : 1975 BED: DIS: 12/26/2024 SPEC #: [id number] RECD: 12/26/24 10:14 STATUS: ESTELA CAMARGO #: [id number] DANGELO: 12/26/24 07:[address]: Leandro Cobos DEPT: [facility] Surgical RECD BY: Maris Rider ENTERED: 12/26/24 10:14 SP TYPE: Surgical OTHR DR: Reinaldo ThibodeauxMD Tissues: A - Esophageal Biopsy Procedures: Hematoxylin and Eosin Stain Gross and Microscopic Level 4
[2024-12-26 07:52] VITALS: BP 108/65; PULSE 89; RESP 19; O2SAT 98
[2024-12-26 08:02] VITALS: BP 97/60; PULSE 76; RESP 16; O2SAT 100
[2024-12-26 08:12] VITALS: BP 108/67; PULSE 69; RESP 17; O2SAT 100
== END 2024-12-26 08:53 | disposition home or self-care (01) ==
PROVIDERS: PCP Internal Medicine; Referring Provider Internal Medicine; Visit Provider Internal Medicine Gastroenterology
PROC: 0DJ08ZZ Inspection of Upper Intestinal Tract, Via Natural or Artificial Opening Endoscopic (ICD-10-PCS; CPT 43249; principal; 2024-12-26 07:30)
DX: K20.0 Eosinophilic esophagitis (principal); K29.51 Unspecified chronic gastritis with bleeding; K44.9 Diaphragmatic hernia without obstruction or gangrene; E55.9 Vitamin D deficiency, unspecified; E78.00 Pure hypercholesterolemia, unspecified; M79.7 Fibromyalgia; R01.1 Cardiac murmur, unspecified; Q79.60 Ehlers-Danlos syndrome, unspecified; Z79.85 Long-term (current) use of injectable non-insulin antidiabetic drugs; Z98.890 Other specified postprocedural states; Z90.49 Acquired absence of other specified parts of digestive tract; Z98.51 Tubal ligation status; Z80.41 Family history of malignant neoplasm of ovary
CPT/HCPCS: 43249; 88305; C1726; J2003; J2704; J7120

== ENCOUNTER 2025-03-06 01:10 | Day surgery (SDC) | payer BC, SELFPAY ==
--- OUTSIDE RECORDS SUMMARY | 2024-06-15 03:40 | XMS_ITS ---
Author Organization [employer] [facility] Address [address] [address] Care Team Providers Care Senior Electrical Engineer Name Role Phone CT ORTIZ Primary Care Provider [phone] Aleena Keys [phone] REASON FOR VISIT DANIEL Encounters Encounter Location Date Provider Diagnosis [facility] - Aleena Barlow [address] [place] [address] 06/15/2024 Aleena Barlow Plan Of Treatment No Information Progress Notes * Tiesha HERNANDEZ SDOB: [birth year] (49 yo F)Acc No.[id number]:06/15/2024 Progress Notes Patient: Tiesha LAKE Provider: Ronnie Barlow MD :1975 A ge:49 Y S ex:Female Date:06/15/2024 Address:[address] [place], [place] [id number] Pcp:CT ORTIZ Subjective: * Chief Complaints: * 1 . DANIEL. * Medical History: Objective: * Vitals: Assessment: Plan: * Treatment: * Billing Information: * Visit Code: * Procedure Codes: * Electronic signature of Donald Barlow MD on 03/06/2025 at 01:13 AM GUYLINE OPERATOR Sign off status: Pending * Provider: Ronnie Barlow MD Date: 0 06/15/2024 Generated for Chucho mathews/Tima/eTransmitting on: 1 05/06/2024 01:13 AM GUYLINE OPERATOR
[2025-03-01 14:03] VITALS: BMI 23.9
--- OUTSIDE RECORDS SUMMARY | 2025-03-06 01:13 | XMS_ITS | Clinical Summary ---
Author Organization [facility] [employer] Address [address] [place] [address] Care Team Providers Care Tipple Tender Name Role Phone Reinaldo Thibodeaux MD Primary Care Provider Source Comments [facility],non-owned Affiliates and Associated Physician Practices is amultiple site organization consisting of ambulatory clinics and hospital sitesin [place], [place], [place] and [place]. This disclosure is being madepursuant to the Care Everywhere program and may not contain all information available regarding this patient. Last updated 18.[facility] [employer] Allergies Active Allergy Reactions Criticality Noted Date Comments Fish Allergy Anaphylaxis High 02/23/2022 Medications * Be aware that medications may not be up to date on this document. Alwaysverify current medications with the patient. rosuvastatin (Crestor) 20 MG tablet Take 1 (one) tablet by mouth once daily 2 Active fluticasone propionate (Flonase) 50 MCG/ACT nasal spray SHAKE LIQUID AND USE 1 SPRAY IN EACH NOSTRIL EVERY DAY 2 Active EPINEPHrine (Epipen) 0.3 MG/0.3ML auto-injector pen epinephrine 0.3 mg/0.3 mL injection, auto-injector INJECT 1 PEN IN THE MUSCLE ONE TIME DIRECTED Active Immunizations Immunization Administration Dates Next Due Covid Moderna primary monovalent 12+ yr 0.5mL 07 /06/2020 Covid Pfizer primary monovalent 12+ yr 0.3mL Pur ple cap 11/27/2020 Social History Tobacco Use Types Packs/Day Years Used Date Smoking Tobacco: Never Smokeless Tobacco: Never Tobacco Cessation:Counseling Given: Not Answered Comments No Sex and Gender Information Value Date Recorded Sex Assigned at Female 09/05/2023 3:18 PM CDT Legal Sex Female 4:54 PM CDT Gender Identity Female 09/05/2023 3:18 PM CDT Sexual Orientation Straight 09/05/2023 3: 18 PM CDT Last Filed Vital Signs Vital Sign Reading Time Taken Comments Blood Pressure 133/82 02/23/2022 9:03 AM CDT Pulse 69 02/23/2022 9:03 AM CDT Temperature 37.2 C (98.9 F) 03/16/2022 9:47 AM WOMEN'S STUDIES LECTURER Respiratory Rate 18 03/16/2022 9:47 AM WOMEN'S STUDIES LECTURER Oxygen Saturation 99% 02/23/2022 9:03 AM CDT Inhaled Oxygen Concentration - - Weight 98.5 kg (217 lb 3.2 oz) 03/16/2022 9:47 A M WOMEN'S STUDIES LECTURER Height 167.6 cm (5' 6) 03/16/2022 9:47 AM WOMEN'S STUDIES LECTURER Body Mass Index 35.06 03/16/2022 9:47 AM WOMEN'S STUDIES LECTURER Plan of Treatment Health Maintenance Due Date Last Done Comments COLOGUARD (AGES 45-75) - COL ON CA SCREENING 1973 COLON MONITORING 1973 COLONOSCOPY - COLON CA SCREENING 1973 CT COLONOGRAPHY - COLON CA SCREENING 1973 Colorectal Cancer Screening 1973 FIT - COLON CA SCREENING 1973 FLEX SIG - COLON CA SCREENING 1973 MAMMOGRAM 1973 HIV SCREENING 1988 HEPATITIS C SCREENING 03/06/1991 DTAP/TDAP/TD VACCINES (1 - Tdap) 1992 HEPATITIS B VACCINE (1 of 3 - 19+ 3-dose series) 1992 SCREENING FOR DIABETES 02/23/2022 PNEUMOCOCCAL VACCINE 50+ (1 of 1 - PCV) 2023 ZOSTER VACCINE (1 of 2) 2023 DEPRESSION SCREENING 05/03/2024 COVID-19 VACCINE (3 - 2024-2 6 season) 2025 11/27/2020, 11/01/2020 INFLUENZA VACCINE (#1) 2025 HIB VACCINE Aged Out No longer eligi ble based on patient's age to complete this topic HPV VACCINE Aged Out No longer eligi ble based on patient's age to complete this topic MENINGOCOCCAL (Group B) VACCINE SHARED DECISION-MAKING Aged Out No longer eligible based on patient's age to complete this topic MENINGOCOCCAL GROUPS A/C/Y/W VACCINE Aged Out No longer eligible b ased on patient's age to complete this topic Insurance [facility] SELF PAY NO INSURANCE Member Subscriber Plan / Payer (Ef fective for All Dates) Name:Kell Hernandez Member ID:Not on file Relation to Subscriber:Not on file Name:KELL HERNANDEZ Subscriber ID:Not on file (Home) Address: [address] [place] [id number] Payer ID:Not on file Group ID:Not on file Type:Self Pay Address: [place], [place] Care Teams Tipple Tender Relationship Specialty Start Date End Date Reinaldo Thibodeaux MD [address] [address] PCP - General 02/23/22
--- OUTSIDE RECORDS SUMMARY | 2025-03-06 01:13 | XMS_ITS | Patient Health Record ---
Author Organization [facility] Address [address] [address] Care Team Providers Care Food Broker Name Role Phone ANG[facility] CT Primary Care Provider Aleena Barlow Unavailable [phone] Joanne Escobar Unavailable [phone] Migration, Provider Unavailable Unavailable Allergies Allergen (clinical drug ingredient) Drug/Non Drug Allergy documented on EMR Reaction Allergy Type Onset Date Status Fish Oil anaphylaxis Drug Allergy Activ e Results Component Value Reference Range Notes COMPREHENSIVE METABOLIC PANE L Reviewed date:04/01/2024 02:16:37 PM Interpretation: Performing Lab:[facility], [facility], [address] [place], [address] Zoran Dyer MD Notes/Report: COLLECTION KIT GIVEN TO PATIENT. PATIENT ADVISED TO RETURN. T3, FREE Reviewed date:04/01/2024 02:18:52 PM Interpretation: Performing Lab:[facility], [address] [place], [address] Zoran Dyer MD Notes/Report: COLLECTION KIT GIVEN TO PATIENT. PATIENT ADVISED TO RETURN. CBC (INCLUDES DIFF/PLT) Reviewed date:04/01/2024 02:16:03 PM Interpretation: Performing Lab:[facility], [address] , [place], [address] Zoran Dyer Notes/Report: COLLECTION KIT GIVEN TO PATIENT. PATIENT ADVISED TO RETURN. VITAMIN B12/FOLATE, SERUM PA HEATHER Reviewed date:04/01/2024 02:19:04 PM Interpretation: Performing Lab:[facility], [address] [place], [address] Zoran Dyer MD Notes/Report: COLLECTION KIT GIVEN TO PATIENT. PATIENT ADVISED TO RETURN. IRON AND TOTAL IRON BINDING CAPACITY Reviewed date:04/01/2024 02:16:18 PM Interpretation: Performing Lab:[facility], [address] [place], [address] Zoran Dyer MD Notes/Report: COLLECTION KIT GIVEN TO PATIENT. PATIENT ADVISED TO RETURN. T4, FREE Reviewed date:04/01/2024 02:18:43 PM Interpretation: Performing [facility], [address] [place], [address] Zoran Dyer Notes/Report: COLLECTION KIT GIVEN TO PATIENT. PATIENT ADVISED TO RETURN. PTH, INTACT AND CALCIUM Reviewed date:04/01/2024 02:16:11 PM Interpretation: Performing Lab:[facility], [address] [place], [address] Zoran Dyer MD Notes/Report: COLLECTION KIT GIVEN TO PATIENT. PATIENT ADVISED TO RETURN. TSH Reviewed date:04/01/2024 02:18:34 PM Interpretation: Performing Lab:[facility], [address] [place], [address] LiCristina Dyer Notes/Report: COLLECTION KIT GIVEN TO PATIENT. PATIENT ADVISED TO RETURN. CALCIUM, 24 HOUR URINE (W/ C REATININE) Reviewed date:04/18/2024 10:30:59 PM Interpretation: Performing Lab:[facility], [address] [place], [address] Zoran Dyer MD Notes/Report: SPLIT 03/29/2024 FROM [id number] URINE VOLUME: 1300/24 CALCIUM/CREATININE RATIO 312 30-275 mg/g crea t CALCIUM, 24 HOUR URINE 276 Reference Range 35-250 Low calcium diet 35-200 CREATININE, 24 HOUR URINE 0.88 0.50-2.15 g/24 h DEXAMETHASONE Reviewed date:05/20/2024 10:03:45 AM Interpretation: Performing Lab:[facility],, [address] [place], [address] Liz Paris MD,PhD,AN Notes/Report: DEXAMETHASONE 295 Reference Ranges for Dexamethasone: Baseline: Less than 20 ng/dL 1 mg dexamethasone overnight: 180-550 ng/dL (8:00-10:00 AM) This test was developed and its analytical performance characteristics have been determined by [employer]. It has not been cleared or approved by FDA. This assay has been validated pursuant to the CLIA regulations and is used for clinical purposes. CORTISOL, TOTAL Reviewed date:05/12/2024 05:30:21 PM Interpretation: Performing Lab:[facility], [address] [place], [address] Zoran Deyr MD Notes/Report: ACTH, PLASMA (Not yet review ed by provider) Interpretation: Performing Lab:Man MANNING/[facility], [address], [place], [address] Vincent Reyez M.D.,PhD Notes/Report: DHEA SULFATE (Not yet review ed by provider) Interpretation: Performing Lab:[facility], [address] [place], [address] Zoran Dyer MD Notes/Report: T4, FREE (Not yet reviewed b y provider) Interpretation: Performing Lab:[facility], [address] [place], [address] Zoran Dyer Notes/Report: TSH (Not yet reviewed by pro vider) Interpretation: Performing Lab:[facility], [facility], [address] [place], [address] Li-Cristina Dyer Notes/Report: DEXAMETHASONE (Not yet revie wed by provider) Interpretation: Performing Lab:Man [facility],, [address] [place], [address] Liz Paris MD,PhD,AN Notes/Report: CORTISOL, TOTAL (Not yet rev iewed by provider) Interpretation: Performing Lab:[facility], [address] [place], [address] Zoran Dyer MD Notes/Report: Reason For Referral No [...] Status Risk Notes Problem Seasonal allergic rhinitis (938979137) Other seasonal allergic rhinitis (J30.2) Active confirmed Problem Allergic rhinitis (49638923) Other allergic rhinitis (J30.89) Active confirmed Problem Obesity (169150076) Obesity, unspecified (E66.9) Active confirmed Problem Hypercalcemia (95276134) Hypercalcemia (E83.52) Active confirmed Problem Allergic rhinitis (00876396) Allergic rhinitis, unspecified (J30.9) Active confirmed Problem Obese class II (155448919244278) Body mass index [BMI] 35.0-35.9, adult (Z68.35) Active confirmed Vital Signs Heart Rate 106 /min 05/18/2024 SpO2: 93% Blood pressure diastolic 77 mm Hg 05/18/2024 SpO 2: 93% Height 65 in 05/18/2024 SpO2: 93% Blood pressure systolic 119 mm Hg 05/18/2024 SpO2 : 93% Weight 180.0 lbs 05/18/2024 SpO2: 93% BMI 29.95 kg/m2 05/18/2024 SpO2: 93% Encounters Encounter Location Date Provider Diagnosis [facility] [address] [place] [address] 03/18/2024 Provider Migration [employer] - Aleena Barlow [address] [place] [address] 06/15/2024 Aleena Barlow [employer] [facility], [facility] - Aleena Wood [address] [place] [address] 03/16/2024 LeaAna Escobar Allergic rhinitis, unspecified J30.9 [facility], [facility] - Aleena Wood [address] [place] [address] 03/20/2024 Aleena Wood Obesity, unspecified E66.9 and Dietary counseling and surveillance Z71.3 [facility] - Aleena Wood [address] [place] [address] 03/29/2024 LeaAna Escoabr Other allergic rhinitis J30.89 [facility], [facility] - Aleena Wood [address] [place] [address] 04/03/2024 LeaAna Escobar Other allergic rhinitis J30.89 [facility], [facility] - Aleena Wood [address] [place] [address] 04/04/2024 LeaAna Escobar Other allergic rhinitis J30.89 [facility], [facility] - Aleena Wood [address] [place] [address] 04/05/2024 LeaAna Escobar Other allergic rhinitis J30.89 [facility], [facility] - Aleena Wood [address] [place] [address] 04/06/2024 LeaAna Escobar Other allergic rhinitis J30.89 [facility], [facility] - Aleena Wood [address] [place] [address] 04/07/2024 LeaAna Escobar Other allergic rhinitis J30.89 [facility], [facility] - Aleena Wood [address] [place] [address] 04/10/2024 LeaAna Escobar Other allergic rhinitis J30.89 [facility] - Aleena Wood [address] [place] [address] 04/11/2024 LeaAna Escobar Other allergic rhinitis J30.89 [facility] - Aleena Wood [address] [place] [address] 04/12/2024 LeaAna Escobar Other allergic rhinitis J30.89 [facility] - Aleena Wood [address] [place] [address] 04/13/2024 Joanne Escobar Other allergic rhinitis J30.89 [employer], [facility] [employer] [address] [place] [address] 04/17/2024 Aleena Wood Obesity, unspecified E66.9 ; Dietary counseling and surveillance Z71.3 and Other seasonal allergic rhinitis J30.2 [employer]{img}, [facility] [employer] [address] [place] [address] 05/18/2024 Aleena Wood Obesity, unspecified E66.9 ; Hypercalcemia E83.52 and Dietary counseling and surveillance Z71.3 [facility] [employer] [address] [place] [address] 03/13/2024 CT [facility] Assessments Encounter Date Diagnosis (ICD Code) Assessment Notes Treatment Notes Treatment Clinical Notes Section Notes 03/16/2024 Allergic rhinitis, unspecified (ICD-10 - J30.9) [...] tirzepatide 7.5 mg weekly lot number of [id number] 04/17/2024 Dietary counseling and surveillance (ICD-10 - Z71.3) 05/18/2024 Obesity, unspecified (ICD-10 - E66.9) 04/17/2024 Other seasonal allergic rhinitis (ICD-10 - J30.2) 05/18/2024 Hypercalcemia (ICD-10 - E83.52) 05/18/2024 Dietary counseling and surveillance (ICD-10 - Z71.3) LOT [id number] 10 mg tirzepatide = 4 prefilled syringes provided 03/16/2024 Other 45-min appt was used to educate patient on requirements of treatment, symptoms, and possible reactions. Avoid allergens. Continue OTC allergy medications Allergy test with skin prick test Patient had allergy testing done for most prevalent allergens [place] today. See scanned allergy test results for detail. Immunotherapy injection treatment recommended. 03/20/2024 Other tirzepatide 4 7.5 mg provided lot number [id number] Assessment and Plan: 1. Weight management- Patient [...] examination and/or evaluation, counseling and educating the patient/family/manager progressive care, ordering medications, tests, or procedures, referring and communicating with other health child care sitter, documenting clinical information in the electronic or other health record, independently interpreting results and communicating results to the patient/family/manager progressive care and care coordinating patient plan. Patient alert [...] levels and allergy symptoms. 6. Pharmacy- Confirm [facility] off [address] as the patient's preferred pharmacy.Plan:- Send dexamethasone [...] examination and/or evaluation, counseling and educating the patient/family/manager progressive care, ordering medications, tests, or procedures, referring and communicating with other health child care sitter, documenting clinical information in the electronic or other health record, independently interpreting results and communicating results to the patient/family/manager progressive care and care coordinating patient plan. Patient alert [...] examination and/or evaluation, counseling and educating the patient/family/manager progressive care, ordering medications, tests, or procedures, referring and communicating with other health child care sitter, documenting clinical information in the electronic or other health record, independently interpreting results and communicating results to the patient/family/manager progressive care and care coordinating patient plan. Patient alert [...] Insured Coverage Start Date Coverage End Date [facility] [address] [place] [address] [id number] Tiesha Byrnes Self - patient is the insured Medical (General) History Medical History History ICD Code High Cholesterol Fibromyalgia Surgical History Surgery Date(Month/Year) Tubal ligation cholecystectomy hysterectomy vaginal Hospitalization History Reason Date(Month/Year) 2012- Broken Pelvis
--- OUTSIDE RECORDS SUMMARY | 2025-03-06 01:13 | XMS_ITS | Clinical Summary ---
Author Organization [facility] Address [address] [place] [address] Care Team Providers Care Senior Reliability Engineer Name Role Phone Harry Pompa MD Primary Care Provider [phone] Social History Tobacco Use Types Packs/Day Years [...] Vaccines (1 of 2) 2023 COVID-19 Vaccine (2024- season) 2025 06/13/2021, 11/27/2020, 11/06/2020, Additional history exists Influenza Adult (#1) 2025 Hepatitis A Vaccines Aged Out No long er eligible based on patient's age to complete this topic Meningococcal B Vaccine Aged Out No l onger eligible based on patient's age to complete this topic Meningococcal Vaccine Aged Out No mariam radha eligible based on patient's age to complete this topic RSV Immunizations Under 20 Months Aged Out No longer eligible based on patient's age to complete this topic Insurance [facility] Care Teams Senior Reliability Engineer Relationship Specialty [place] [address] [place] [address] PCP - General OPHTHALMOLOGY 11/11/23
--- OUTSIDE RECORDS SUMMARY | 2025-03-06 01:14 | XMS_ITS | Patient Health Record ---
Author Organization [facility] Address [address] [place] [address] Care Team Providers Care Copier And Printer Field Technician Name Role Phone Aleena Barlow Unavailable [phone] Migration, Provider Unavailable Unavailable Yoandy Escobar Unavailable [phone] Balbir Velasco Unavailable [phone] Allergies Allergen (clinical drug ingredient) Drug/Non Drug Allergy documented on EMR Reaction Allergy Type Onset Date Status Fish Oil anaphylaxis Drug Allergy Activ e Results Component Value Reference Range Flag Notes CALCIUM, 24 HOUR URINE (W/ C REATININE) Reviewed date:04/18/2024 10:30:59 PM Interpretation: Performing Lab:MAURO, [facility], [address] [place], [address] Zoran Dyer MD Notes/Report: Reference Range 35-250 SPLIT 03/29/2024 FROM [id number] Low calcium diet 35-200 URINE VOLUME: 1300/24 CALCIUM/CREATININE RATIO 312 30-275 mg/g creat H CALCIUM, 24 HOUR URINE 276 H CREATININE, 24 HOUR URINE 0.88 0.50-2.15 g/24 h N TSH Reviewed date:04/01/2024 02:18:34 PM Interpretation: Performing Lab:CHAS, [facility], [address], [place], [address] Zoran Dyer Notes/Report: Reference Range COLLECTION KIT GIVEN TO PATIENT. PATIENT ADVISED TO RETURN. > or = 20 Years 0.40-4.50 Ranges First trimester 0.26-2.66 Second trimester 0.55-2.73 Third trimester 0.43-2.91 TSH 3.65 N PTH, INTACT AND CALCIUM Reviewed date:04/01/2024 02:16:11 PM Interpretation: Performing Lab:MAURO [facility], [address] [place], [address] Zoran Dyer MD Notes/Report: COLLECTION KIT GIVEN TO PATIENT. PATIENT ADVISED TO RETURN. Interpretive Guide Intact PTH Calcium ------- Normal Parathyroid Normal Normal Hypoparathyroidism Low or Low Normal Low Hyperparathyroidism Primary Normal or High High Secondary High Normal or Low Tertiary High High Non-Parathyroid Hypercalcemia Low or Low Normal High PARATHYROID HORMONE, INTACT 24 16-77 pg/mL N CALCIUM 9.0 8.6-10.4 mg/dL N T4, FREE Reviewed date:04/01/2024 02:18:43 PM Interpretation: Performing Lab:[facility], [address], [place], [address] Zoran Dyer Notes/Report: COLLECTION KIT GIVEN TO PATIENT. PATIENT ADVISED TO RETURN. T4, FREE 1.2 0.8-1.8 ng/dL N IRON AND TOTAL IRON BINDING CAPACITY Reviewed date:04/01/2024 02:16:18 PM Interpretation: Performing Lab:[facility], [address] [place], [address] Zoran Dyer MD Notes/Report: COLLECTION KIT GIVEN TO PATIENT. PATIENT ADVISED TO RETURN. IRON, TOTAL 78 45-160 mcg/dL N IRON BINDING CAPACITY 248 250-450 mc g/dL (calc) L % SATURATION 31 16-45 % (calc) N VITAMIN B12/FOLATE, SERUM PA HEATHER Reviewed date:04/01/2024 02:19:04 PM Interpretation: Performing Lab:[facility], [address] [place], [address] Zoran Dyer MD Notes/Report: Reference Range COLLECTION KIT GIVEN TO PATIENT. PATIENT ADVISED TO RETURN. Low: <3.4 Borderline: 3.4-5.4 Normal: >5.4 VITAMIN B12 340 662-5135 pg/mL N FOLATE, SERUM >24.0 N CBC (INCLUDES DIFF/PLT) Reviewed date:04/01/2024 02:16:03 PM Interpretation: Performing Lab:[facility], [address], [place], [address] Zoran Dyer Notes/Report: For adults, a slight [...] 10.1 7.5-12.5 fL N ABSOLUTE NEUTROPHILS 4781 0094-4434 cells/uL N ABSOLUTE LYMPHOCYTES 3234 928-4145 cells/uL N ABSOLUTE MONOCYTES 585 200-950 cells/uL N ABSOLUTE EOSINOPHILS 601 15-500 cells/uL H ABSOLUTE BASOPHILS 101 0-200 cells/uL N NEUTROPHILS 61.3 N LYMPHOCYTES 22.2 N MONOCYTES 7.5 N EOSINOPHILS 7.7 N BASOPHILS 1.3 N T3, FREE Reviewed date:04/01/2024 02:18:52 PM Interpretation: Performing Lab:[facility], [address] [place], [address] Zoran Dyer MD Notes/Report: COLLECTION KIT GIVEN TO PATIENT. PATIENT ADVISED TO RETURN. T3, FREE 3.1 2.3-4.2 pg/mL N COMPREHENSIVE METABOLIC PANE L Reviewed date:04/01/2024 02:16:37 PM Interpretation: Performing Lab:[facility], [address] [place], [address] Zoran Dyer MD Notes/Report: Not Reported: BUN [...] U/L N ALT 16 6-29 U/L N CORTISOL, TOTAL Reviewed date:05/12/2024 05:30:21 PM Interpretation: Performing Lab:[facility], [address] [place], [address] Zoran Dyer MD Notes/Report: Reference Range: For 8 a.m.(7-9 a.m.) Specimen: 4.0-22.0 Reference Range: For 4 p.m.(3-5 p.m.) Specimen: 3.0-17.0 * Please interpret above results accordingly * CORTISOL, TOTAL 1.5 L DEXAMETHASONE Reviewed date:05/20/2024 10:03:45 AM Interpretation: Performing Lab:SESAR [facility],, [address] [place], [address] Liz Paris MD,PhD,AN Notes/Report: Reference Ranges for Dexamethasone: Baseline: Less than 20 ng/dL 1 mg dexamethasone overnight: 180-550 ng/dL (8:00-10:00 AM) This test was developed and its analytical performance characteristics have been determined by [facility]. It has not been cleared or approved by FDA. This assay has been validated pursuant to the CLIA regulations and is used for clinical purposes. DEXAMETHASONE 295 DEXAMETHASONE ([id number]) Reviewed date:02/24/2025 07:11:35 PM Interpretation: Performing Lab:[facility],[address] [address] [facility] CenterLzzhmjtzwgPO[address] Liz Paris MD,PhD,AN Notes/Report: FASTING:YES FASTING: YES DEXAMETHASONE 218 Reference Ranges for Dexamethasone: Baseline: Less than 20 ng/dL 1 mg dexamethasone overnight: 180-550 ng/dL (8:00-10:00 AM) This test was developed and its analytical performance characteristics have been determined by [facility]. It has not been cleared or approved by the FDA. This assay has been validated pursuant to the CLIA regulations and is used for clinical purposes. CORTISOL, TOTAL (367) Reviewed date:02/20/2025 07:54:07 PM Interpretation: Performing Lab:[facility]-Bgsvbp[address] [place] Zoran Dyer MD Notes/Report: FASTING:YES FASTING: YES CORTISOL, TOTAL 1.9 L The Cortisol result may be decreased on average 10-20% relative to results previously obtained with this method due to a recent quality improvement made in December 2024 by the reagent custom frame assembler. Reference Range: For 8 a.m.(7-9 a.m.) Specimen: 4.0-22.0 Reference Range: For 4 p.m.(3-5 p.m.) Specimen: 3.0-17.0 * Please interpret above results accordingly * CORTISOL, TOTAL (367) Reviewed date:06/20/2024 01:48:40 PM Interpretation: Performing Lab:[facility]-Kyasgh[address] [place]awgnUJ[address] Zoran Dyer MD Notes/Report: CORTISOL, TOTAL 20.2 N Reference Range: For 8 a.m.(7-9 a.m.) Specimen: 4.0-22.0 Reference Range: For 4 p.m.(3-5 p.m.) Specimen: 3.0-17.0 * Please interpret above results accordingly * DEXAMETHASONE (41276) Reviewed date:07/01/2024 12:37:18 PM Interpretation: Performing Lab:[facility],[address] [place] Liz Paris MD,PhD,AN Notes/Report: DEXAMETHASONE 229 Reference Ranges for Dexamethasone: Baseline: Less than 20 ng/dL 1 mg dexamethasone overnight: 180-550 ng/dL (8:00-10:00 AM) This test was developed and its analytical performance characteristics have been determined by [facility]. It has not been cleared or approved by FDA. This assay has been validated pursuant to the CLIA regulations and is used for clinical purposes. DHEA SULFATE (402) Reviewed date:06/14/2024 02:04:13 PM Interpretation: Performing Lab:[facility]-Odrsmq19785 [address] RileyDfrziiBU[address] Zoran Dyer MD Notes/Report: DHEA SULFATE 92 5-167 mcg/dL N T4, FREE (866) Reviewed date:06/13/2024 09:45:19 PM Interpretation: Performing Lab:[facility] Naoid[address] [place] [address] Zoran Dyer Notes/Report: T4, FREE 1.2 0.8-1.8 ng/dL N TSH (899) Reviewed date:06/13/2024 09:45:19 PM Interpretation: Performing Lab:[facility] Haniy[address] [place] [address] Zoran Dyer Notes/Report: TSH 3.13 N Reference Range > or = 20 Years 0.40-4.50 Ranges First trimester 0.26-2.66 Second trimester 0.55-2.73 Third trimester 0.43-2.91 ACTH, PLASMA (211) Reviewed date:06/20/2024 01:48:41 PM Interpretation: Performing Lab:[facility]ANN[facility]indi [place] DC[address] [facility] [address], NblxyzigrBC[address] Vincent Reyez M.D.,PhD Notes/Report: ACTH, PLASMA 7 6-50 pg/mL Reference range applies only to specimens collected between 7am-10am. CORTISOL, LC/MS, SALIVA, 2 S AMPLEBraden ([id number]) Reviewed date:07/04/2024 09:00:06 PM Interpretation: Performing Lab:[facility],[address] [facility] Liz Paris MD,PhD,AN Notes/Report: URINE VOLUME: 1300/24 DRAW DATE 1 06/25/2024 DRAW TIME 1 12:00 AM CORTISOL, SALIVA SAMPLE 1 0.03 8-10 AM: 0.04-0.56 mcg/dL noon-2 PM: < OR = 0.21 mcg/dL 4-6 PM: < OR = 0.15 mcg/dL 10 PM-1 AM: < OR = 0.09 mcg/dL This test was developed and its analytical performance characteristics have been determined by [facility]. It has not been cleared or approved by FDA. This assay has been validated pursuant to the CLIA regulations and is used for clinical purposes. DRAW DATE 2 06/26/2024 DRAW TIME 2 12:00 AM CORTISOL, SALIVA SAMPLE 2 0.14 8-10 AM: 0.04-0.56 mcg/dL noon-2 PM: < OR = 0.21 mcg/dL 4-6 PM: < OR = 0.15 mcg/dL 10 PM-1 AM: < OR = 0.09 mcg/dL This test was developed and its analytical performance characteristics have been determined by [facility]. It has not been cleared or approved by FDA. This assay has been validated pursuant to the CLIA regulations and is used for clinical purposes. CORTISOL, FREE, 24 HOUR URIN E ([id number]) Reviewed date:07/01/2024 12:39:23 PM Interpretation: Performing Lab:Man [facility],[address] [facility] Liz Paris MD,PhD,AN Notes/Report: URINE VOLUME: 1300/24 TOTAL VOLUME 1300 CORTISOL, FREE, URINE 12.2 4.0-50.0 mcg/24 h CORTISOL, FREE, URINE 12.5 Reference Range: ADULTS: 3.1-42.3 CREATININE, URINE 0.97 0.50-2.15 g/24 h This test was developed and its analytical performance characteristics have been determined by [facility]. It has not been cleared or approved by FDA. This assay has been validated pursuant to the CLIA regulations and is used for clinical purposes. CORTISOL, TOTAL (367) Reviewed date:08/21/2024 11:04:11 PM Interpretation: Performing Lab:Man W[facility]-Rviubc[address] Miguelina Schafer, CigwteUF[address] Zoran Dyer MD Notes/Report: CORTISOL, TOTAL 1.6 L Reference Range: For 8 a.m.(7-9 a.m.) Specimen: 4.0-22.0 Reference Range: For 4 p.m.(3-5 p.m.) Specimen: 3.0-17.0 * Please interpret above results accordingly * DEXAMETHASONE ([id number]) Reviewed date:08/26/2024 09:53:20 PM Interpretation: Performing Lab:Man K[facility],[address] [facility] CenterCA[address] Liz Paris MD,PhD,AN Notes/Report: DEXAMETHASONE 335 Reference Ranges for Dexamethasone: Baseline: Less than 20 ng/dL 1 mg dexamethasone overnight: 180-550 ng/dL (8:00-10:00 AM) This test was developed and its analytical performance characteristics have been determined by [facility]. It has not been cleared or approved by the FDA. This assay has been validated pursuant to the CLIA regulations and is used for clinical purposes. INSULIN, INTACT, LC/MS/MS (9 3103) Reviewed date:07/25/2024 08:47:06 PM Interpretation: Performing Lab:Man [facility],[address] [facility] CenterCA[address] Liz Paris MD,PhD,AN Notes/Report: FASTING:YES FASTING: YES INSULIN, INTACT, LC/MS/MS 6 < OR = 16 uIU/mL Insulin concentration can be converted to pmol/L by applying the conversion factor: 1 uIU/mL = 5.97 pmol/L For additional information, please refer to http://education.[employer]/faq/VNG924 (This link is being provided for informational/educationa l purposes only.) This test was developed and its analytical performance characteristics have been determined by [facility]. It has not been cleared or approved by the FDA. This assay has been validated pursuant to the CLIA regulations and is used for clinical purposes. T3, FREE (79613) Reviewed date:07/22/2024 07:21:23 PM Interpretation: Performing Lab:MAURO [facility]-Fvalgz[address] RileyaKS[address] Zoran Dyer MD Notes/Report: FASTING:YES FASTING: YES T3, FREE 2.7 2.3-4.2 pg/mL N TSH (899) Reviewed date:07/22/2024 07:21:23 PM Interpretation: Performing Lab:Man [place] [address] [address] [place] [address] Zoran Dyer Notes/Report: FASTING:YES FASTING: YES TSH 2.06 N Reference Range > or = 20 Years 0.40-4.50 Ranges First trimester 0.26-2.66 Second trimester 0.55-2.73 Third trimester 0.43-2.91 T4, FREE (866) Reviewed date:07/22/2024 07:21:23 PM Interpretation: Performing Lab:[facility] [address] [address] [place] [address] Zoran Dyer Notes/Report: FASTING:YES FASTING: YES T4, FREE 1.2 0.8-1.8 ng/dL N INSULIN (561) Reviewed date:07/22/2024 07:21:23 PM Interpretation: Performing Lab:MA[facility]O [facility] De[facility]-Xnhxgi[address] RileyaKS[address] Zoran Dyer MD Notes/Report: FASTING:YES FASTING: YES INSULIN 8.8 N Reference Range < or = 18.4 Risk: Optimal < or = 18.4 Moderate NA High >18.4 Adult cardiovascular event risk category cut points (optimal, moderate, high) are based on Insulin Reference Interval studies performed at [facility] in 2021. .HEMOGLOBIN A1c (496) Reviewed date:07/22/2024 07:21:23 PM Interpretation: Performing Lab:[facility] IhjwbydEE[address] Zoran Dyer Notes/Report: FASTING:YES FASTING: YES HEMOGLOBIN A1c 4.9 <5.7 % of total Hgb N For the purpose of screening for the presence of diabetes: <5.7% Consistent with the absence of diabetes 5.7-6.4% Consistent with increased risk for diabetes (prediabetes) > or =6.5% Consistent with diabetes This assay result is consistent with a decreased risk of diabetes. Currently, no consensus exists regarding use of hemoglobin A1c for diagnosis of diabetes in children. According to [place] [employer] (ADA) guidelines, hemoglobin A1c <7.0% represents optimal control in non- diabetic patients. Different metrics may apply to specific patient populations. Standards of Medical Care in Diabetes(ADA). Reason For Referral No Information Medications Medication SIG (Take, Route, Frequency, Duration) Notes Start Date End Date Status Align 4 mg capsule 1 cap(s) orally once a day Active Vitamin E *Pick strength-form from [employer] for eRX* Active Tolterodine Tartrate 4 mg capsule, extended release 1 cap(s) orally once a day *Pick strength-form from [employer] for eRX* Active dexAMETHasone 1 MG Tablet 1 tablet Orally at 10 pm night before 8 am cortisol; Duration: 1 days 01/25/2025 Active Ramelteon 8 MG Tablet 1 tablet at bedtim e as needed Orally Once a day; Duration: 90 days 10/27/2024 Active Estradiol 0.5 mg tablet 1 tab(s) orally once a day Active DULoxetine HCl 60 mg delayed release capsule 1 cap(s) orally once a day *Pick strength-form from [employer] for eRX* Active Rosuvastatin Calcium 20 mg tablet 1 tab(s) orally once a day Active Calcium Carbonate 1250 mg tablet 1 [...] Risk Notes Problem Disorder of adrenal gland (25604262) Disorder of adrenal gland, 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) Active confirmed Problem Overweight (155148620) Overweight (E66.3) Active confirmed Problem Obesity (802468083) Obesity, unspecified (E66.9) Active confirmed Problem Hypercalcemia (69402442) Hypercalcemia (E83.52) Active confirmed Problem Primary insomnia (1217284) Primary insomnia (F51.01) Active confirmed Problem Insomnia (019188618) Other insomnia (G47.09) Active confirmed Problem Seasonal allergic rhinitis (914921383) Other seasonal allergic rhinitis (J30.2) Active confirmed Problem Allergic rhinitis (58045963) Other allergic rhinitis (J30.89) Active confirmed Problem Allergic rhinitis (76890447) Allergic rhinitis, unspecified (J30.9) Active confirmed Problem Menopause (252842853) Menopausal and female climacteric states (N95.1) Active confirmed Problem Obese class II (384519999923897) Body mass index [BMI] 35.0-35.9, adult (Z68.35) Active confirmed Problem Anxiety (57699026) Anxiety (F41.9) Active confirmed Problem Generalized anxiety disorder (86872469) Anxiety, generalized (F41.1) Active confirmed Vital Signs Heart Rate 90 /min 02/23/2025 Height-cm 165.1 cm 02/23/2025 Oximetry 97 % 02/23/2025 Blood pressure diastolic 68 mm Hg 02/23/2025 Weight-kg 65.5 kg 02/23/2025 Height 65 in 02/23/2025 Blood pressure systolic 98 mm Hg 02/23/2025 Weight 144.4 lbs 02/23/2025 BMI 24.03 kg/m2 02/23/2025 Encounters Encounter Location Date Provider Diagnosis [address] [id number] 03/18/[address] Barlow [address] [place] [address] 03/16/2024 Yoandy Escobar Allergic rhinitis, unspecified J30.[address] Bralow [address] [place] [address] 03/20/2024 Aleena Barlow Obesity, unspecified E66.9 and Dietary counseling and surveillance Z71.[address] Barlow [address] [place] [address] 03/29/2024 Jana-Claudine Escobar Other allergic rhini tis J30.[address] Barlow [address] [place] [address] 04/03/2024 Jana-Claudine Escobar Other allergic rhini tis J30.[address] Barlow [address] [place] [address] 04/04/2024 Jana-Claudine Escobar Other allergic rhini tis J30.[address] Barlow [address] [place] [address] 04/05/2024 Jana-Claudine Escobar Other allergic rhini tis J30.[address] Barlow [address] [place] [address] 04/06/2024 Jana-Claudine Escobar Other allergic rhini tis J30.[address] Barlow [address] [place] [address] 04/07/2024 Jana-Claudine Escobar Other allergic rhini tis J30.[address] Barlow [address] [place] [address] 04/10/2024 Jana-Claudine Escobar Other allergic rhini tis J30.[address] Barlow [address] [place] [address] 04/11/2024 Jana-Claudine Escobar Other allergic rhini tis J30.[address] Barlow [address] [place] [address] 04/12/2024 Jana-Claudine Escobar Other allergic rhini tis J30.[address] Barlow [address] [place] [address] 04/13/2024 Jana-Claudine Escobar Other allergic rhini tis J30.[address] Barlow [address] [place] [address] 04/17/2024 Aleena Barlow Obesity, unspecified E66.9 ; Dietary counseling and surveillance Z71.3 and Other seasonal allergic rhinitis J30.[address] Barlow [address] [place] [address] 05/18/2024 Aleena Barlow Obesity, unspecified E66.9 ; Hypercalcemia E83.52 and Dietary counseling and surveillance Z71.[address] Barlow [address] [place] [address] 06/15/2024 Aleena Barlow Dietary counseling a nd surveillance Z71.3 and Obesity, unspecified E66.[address] 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 Barlow [address] [place] [address] 09/01/2024 Aleena Barlow Overweight E66.3 ; Menopausal and female climacteric states N95.1 and Dietary counseling and surveillance Z71.[address] Barlow [address] [place] [address] 09/29/2024 Aleena Barlow Dietary counseling a nd surveillance Z71.3 ; Overweight E66.3 and Primary insomnia F51.[address] Barlow [address] [place] [address] 10/27/2024 Aleena Barlow Overweight E66.3 ; Primary insomnia F51.01 and Dietary counseling and surveillance Z71.[address] Barlow [address] [place] [address] 11/28/2024 Aleenafranko Barlow Primary insomnia F51 .01 ; Overweight E66.3 and Dietary counseling and surveillance Z71.[address] Barlow [address] [place] [address] 12/25/2024 Aleena Barlow Overweight E66.3 and Dietary counseling and surveillance Z71.[address] Barlow [address] [place] [address] 01/25/2025 Aleena Barlow Primary insomnia F51 .01 ; Overweight E66.3 ; Anxiety F41.9 and Dietary counseling and surveillance Z71.[address] Barlow [address] [place], [place] [address] 02/23/2025 Aleena Barlow Anxiety, generalized F41.1 ; Other insomnia G47.09 ; Pancreatic pseudocyst K86.3 ; Overweight E66.3 and Dietary counseling and surveillance Z71.[address] Barlow [address] [place] [address] 03/13/2024 Balbir [facility] [address] [place], [place] [address] 07/11/2024 Aleena Barlow [facility] [address] [place] [address] 10/30/2024 Aleena Barlow [facility] [address] [place], [place] [address] 01/23/2025 Aleena Barlow Primary insomnia F51 .[address] Barlow [address] [place] [address] 02/23/[address] Barlow [address] [place] [address] 12/05/2024 Aleena Barlow Primary insomnia F51 .[address] 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 11/28/2024 Overweight (ICD-10 - E66.3) 09/29/2024 Primary insomnia (ICD-10 - F51.01) 06/15/2024 Obesity, unspecified (ICD-10 - E66.9) 07/06/2024 Overweight (ICD-10 - E66.3) 05/18/2024 Hypercalcemia (ICD-10 - E83.52) 04/17/2024 Other seasonal allergic rhinitis (ICD-10 - J30.2) 05/18/2024 Dietary counseling and surveillance (ICD-10 - Z71.3) LOT [id number] 10 mg tirzepatide = 4 prefilled syringes [...] 150 minutes of moderate level activity weekly. 02/23/2025 Overweight (ICD-10 - E66.3) 01/25/2025 Dietary counseling and surveillance (ICD-10 - Z71.3) [...] 150 minutes of moderate level activity weekly. 02/23/2025 Dietary counseling and surveillance (ICD-10 - Z71.3) Spent 15 minutes preventative counseling patient on dietary recommendations and changes in setting of hyperglycemia- need to restrict refined sugars and processed foods and incorporate up to 150 minutes of moderate level activity weekly. 03/16/2024 Other 45-min appt was used to educate patient on requirements of treatment, symptoms, and possible reactions. Avoid allergens. Continue OTC allergy medications Allergy test with skin prick test Patient had allergy testing done for most prevalent allergens [place] today. See scanned allergy test results for detail. Immunotherapy injection treatment recommended. 03/20/2024 Other tirzepatide 4 7.5 mg provided lot number [id number] Assessment and Plan: 1. Weight management- Patient [...] referring and communicating with other health care connector, documenting clinical information in the electronic or [...] levels and allergy symptoms. 6. Pharmacy- Confirm [facility] as the patient's preferred pharmacy.Plan:- Send [...] referring and communicating with other health care connector, documenting clinical information in the electronic or [...] referring and communicating with other health care connector, documenting clinical information in the electronic or [...] referring and communicating with other health care connector, documenting clinical information in the electronic or other health record, independently interpreting results and communicating results to the patient/family/caregiver and care coordinating patient plan. Patient alert and oriented x 4 and aware of discussion noted above and in agreeance to plan in management of obesity/weight management and new concern for hypercortisolism. 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 The source of excess cortisol production [...] fractures include arm (age 8-9) and pelvis/tailbone (2010) from a fall.- Continue monitoring pain levels- Consider further evaluation if pain worsens or new symptoms develop Spent 25 minutes preparing to see the patient (ex review of tests/chart), obtaining and / or reviewing separately obtained history, performing a medically appropriate examination and/or evaluation, counseling and educating the patient/family/caregiver , ordering medications, tests, or procedures, referring and communicating with other health care connector, documenting clinical information in the electronic or other health record, independently interpreting results and communicating results to the patient/family/caregiver and care coordinating patient plan. Patient alert and oriented x 4 and aware of discussion noted above and in agreeance to plan in management of Patient picked up and paid for four 7.5mg tirzepatide injections lot #[id number] 08/04/2024 Other Assessment and Plan: 1. Hypercortisolism [...] referring and communicating with other health care connector, documenting clinical information in the electronic or [...] referring and communicating with other health care connector, documenting clinical information in the electronic or other health record, independently interpreting results and communicating results to the patient/family/caregiver and care coordinating patient plan. Patient alert and oriented x 4 and aware of discussion noted above and in agreeance to plan in management of weight management, overweight, menopausal symptoms. m 09/29/2024 Other Assessment and Plan: 1. Weight [...] one month 2. 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- Previous trials of [...] referring and communicating with other health care connector, documenting clinical information in the electronic or [...] referring and communicating with other health care connector, documenting clinical information in the electronic or [...] referring and communicating with other health care connector, documenting clinical information in the electronic or [...] referring and communicating with other health care connector, documenting clinical information in the electronic or other health record, independently interpreting results and communicating results to the patient/family/caregiver and care coordinating patient plan. Patient alert and oriented x 4 and aware of discussion noted above and in agreeance to plan in management of weight management. 01/25/2025 Giacomo Motley, a post-hysterectomy patient on estrogen therapy, presents for follow-up of weight loss management and ongoing concerns including sleep disturbances, easy bruising, and anxiety. Weight management, improving with medicationAssessment: Patient has achieved significant weight loss of approximately 40 pounds total, with an additional 3 pounds lost since the last visit. Current weight is approaching the goal, with only a few more pounds desired. Patient is currently on 10 mg of weight loss medication (specific medication not mentioned) weekly. Considering spreading out the dosing as the patient nears their goal weight.Plan:- Continue current weight loss medication tirzepatide at 10 mg weekly- Transition to every 2 weeks dosing once goal weight is achieved- Target goal weight of approximately 140 pounds- Encourage adequate protein, fruit, and vegetable intake- Maintain hydration- Ensure regular bowel movements InsomniaAssessment: Patient reports persistent sleep disturbances, including frequent nighttime awakenings and feeling unrested. Total sleep duration is approximately 6 hours per night at most. Previous attempts with magnesium supplementation before bedtime have not been effective.Plan:- Consider natural supplements: - Phosphatidylserine (Nuadapt) - Ashwagandha root - Vitamin C (up to 1000 mg daily) - B12- Recommend dietary sources of nutrients: legumes, berries, grains, soybeans, and greens Suspected hypercortisolismAssessme nt: Patient presents with symptoms potentially indicative of hypercortisolism, including easy bruising, delayed wound healing, anxiety, and sleep disturbances. Previous 24-hour urine cortisol test has been performed, but results are not discussed. Considering the possibility of cyclical or minimally autonomous cortisol secretion. Complicating factor is daily estrogen therapy due to previous hysterectomy, which may interfere with certain diagnostic tests and treatment options.Plan:- Order cortisol labs to reassess cortisol levels- Consider future treatment with rilocortin (expected availability May next year) if hypercortisolism is confirmed, as it does not interfere with hormone therapy- Recommend natural supplements to potentially address high cortisol: - Moringa - Phosphatidylserine - Ashwagandha root - Vitamin C (up to 1000 mg daily, with caution regarding kidney stone risk) - B12 AnxietyAssessment: Patient reports experiencing anxiety more frequently than desired. This may be related to potential hypercortisolism or could be an independent concern.Plan:- Monitor anxiety symptoms in conjunction with cortisol level assessment- Consider natural supplements as mentioned in the hypercortisolism plan, which may also address anxiety symptoms Preventive careAssessment: Reviewing preventive care measures. Patient confirms being up-to-date on colonoscopies and mammograms.Plan:- Continue current preventive care schedule- Maintain estrogen therapy post-hysterectomy Spent 15 minutes preparing to see the patient (ex review of tests/chart), obtaining and / or reviewing separately obtained history, performing a medically appropriate examination and/or evaluation, counseling and educating the patient/family/caregiver , ordering medications, tests, or procedures, referring and communicating with other health care connector, documenting clinical information in the electronic or other health record, independently interpreting results and communicating results to the patient/family/caregiver and care coordinating patient plan. Patient alert and oriented x 4 and aware of discussion noted above and in agreeance to plan in management of weight management, insomnia/anxiety and need to screen for hypercortisolism-previou s screens were negative. 02/23/2025 Other Tiesha is being evaluated for possible hypercortisolism with a positive dexamethasone suppression test and ongoing sleep disturbances and anxiety. Elevated cortisol levelsAssessment: Dexamethasone suppression test result of 1.9 is slightly elevated, suggesting possible hypercortisolism. Patient continues to experience sleep difficulties and anxiety, which may be related to elevated cortisol levels. However, patient is losing weight on GLP-1 medication and does not have diabetes, blood pressure elevation, or other typical Roel's syndrome features, making classic Riverside's syndrome less likely. Further evaluation needed to determine source and significance of cortisol elevation.Plan:- Repeat cortisol test- Order ACTH level- Order DHEAS level- Order chromogranin A level- MRI to evaluate adrenals- Call with results once available Pancreatic lesionAssessment: Small 4-millimeter lesion identified in the uncinate process of the pancreas. Given the size and location, further characterization needed to determine nature of the lesion and rule out neuroendocrine tumor, especially in context of evaluating for possible hormone excess.Plan:- MRI for more specific evaluation of pancreatic lesion- Chromogranin A level as neuroendocrine marker GLP-1 medication managementAssessment: Patient has been on GLP-1 medication for approximately 8 months with good response. Current BMI is 24 and patient has achieved significant weight loss. At appropriate time point to consider dose reduction for maintenance and cost-effectiveness.Plan: - Reduce dosing frequency from weekly to every two weeks if currently on 10 mg- If tolerated well, further reduce to 7.5 mg every two weeks- Continue current 10 mg dose split over two months Spent 15 minutes preparing to see the patient (ex review of tests/chart), obtaining and / or reviewing separately obtained history, performing a medically appropriate examination and/or evaluation, counseling and educating the patient/family/caregiver , ordering medications, tests, or procedures, referring and communicating with other health care connector, documenting clinical information in the electronic or other health record, independently interpreting results and communicating results to the patient/family/caregiver and care coordinating patient plan. Patient alert and oriented x 4 and aware of discussion noted above and in agreeance to plan in management of weight management, in setting of anxiety/insomnia, has borderline/positive DST and small uncinate process 4 mm lesion in pancreas. Plan Of Treatment Pending Test Test Name Order Date *CT ABDOMEN W/O CONTRAST 81812 5 *MRI ABDOMEN W/ AND W/O [id number] 02/23/2025 Next Appt Details Provider Name:Aleena Barlow, 11:00:00 AM, [address] [place], [address], Provider Name:Aleena Barlow, 10:00:00 AM, [address] [place], [address], Insurance Providers Payer Name Payer Address Payer Phone Subscriber Number Group Number Insured Name Patient Relationship to Insured Coverage Start Date Coverage End Date KAMALJIT DAVIES [id number] [place] [phone] [id number] Teisha Byrnes Self - patient is the insured Medical (General) History Medical History History ICD Code High Cholesterol Fibromyalgia Surgical History Surgery Date(Month/Year) hysterectomy vaginal cholecystectomy Tubal ligation Hospitalization History Reason Date(Month/Year) 2011- Broken Pelvis
[2025-03-06 11:59] VITALS: BP 110/63; PULSE 73; RESP 18; TEMP 37.1; O2SAT 100
[2025-03-06] MEDS: LACTATED RINGERS 1,000 ML 150 ML IV CONT (11:59)
[2025-03-06] MEDS: SIMETHICONE ORAL SUSPENSION 20 MG/0.3 ML 30 ML BOTTLE 1.8 ML PO (12:00)
--- NOTE | 2025-03-06 12:27 | WPDANESEPPF ---
Anes - Initial Pre Proc Eval Procedure: Operation Date: 03/06/25 13:00 Proposed Procedures p Esophagogastroduodenoscopy EGD - Leandro Cobos MD Date/Time: 03/06/25 12:27 Surgeon: Leandro Cobos MD Pre Op Diagnosis: Dysphagia, unspecified Patient Data Age: 49 Gender: F Height: 1.65 m Weight: 65.8 kg Last Vital Signs Temp 98.8 F 03/06/25 11:59 Pulse 73 03/06/25 11:59 Resp 18 03/06/25 11:59 BP 110/63 03/06/25 11:59 Pulse Ox 100 03/06/25 11:59 O2 Del Method Room Air 03/06/25 11:59 Allergies Allergy/AdvReac Type Severity Reaction Status Date / Time fresh fish AdvReac Intermediate Swelling Uncoded 02/27/25 12:59 of Lip/Tongue/Throat Home Medications ?Medication ?Instructions ?Recorded ?Confirmed ?Type L.acidop,casei,lactis,rham-B.lact,mariam 1 cap PO DAILY 07/04/21 03/06/25 History 625 mg (10 billion cell) capsule (Advanced Probiotic) rosuvastatin 20 mg tablet 20 mg PO DAILY 07/04/21 03/06/25 History cetirizine 5 mg tablet 10 mg PO DAILY 06/08/23 03/06/25 History duloxetine 30 mg capsule,delayed 30 mg PO BID 12/16/23 03/06/25 History release (Cymbalta) tolterodine 4 mg capsule,extended 4 mg PO DAILY #90 caps 07/24/24 03/06/25 Rx release 24 hr (Detrol LA) estradiol 0.5 mg tablet 0.5 mg PO DAILY 90 days #90 tabs 09/28/24 03/06/25 Rx tirzepatide (weight loss) 10 10 mg subcut WEEKLY weight loss 12/11/24 03/06/25 History mg/0.5 mL subcutaneous pen injector (Zepbound) omeprazole 40 mg capsule,delayed 40 mg PO BID 30 days #60 caps 12/26/24 03/06/25 Rx release Patient hx anesthesia problems: none Family hx anesthesia problems: none Results Review: All pre-operative results and documents have been reviewed as part of the pre-operative evaluation. [facility] Past Medical History Medical History Viraj-Danlos disease Fibromyalgia Screening mammogram, encounter for Vitamin D deficiency High cholesterol History of fractured pelvis Seasonal allergies Heart murmur Chronic UTI Surgical History Surgical History History of cholecystectomy (~01/2013) History of total vaginal hysterectomy (TVH) (09/04/04) menometrorrhagia/dysmenorrhea History of tubal ligation (10/12/02) Family History Family History Mother Family history of osteoporosis Patient's mother is in good health Family history of malignant neoplasm of ovary, Onset Age: 36 Family history of lupus erythematosus Grandparent Hypertension Father Family history of eczema Patient's father is in good health Sibling Patient's sister is in good health Family history of allergic disorder Social History Social History Smoking status: Never smoker Second hand tobacco smoke exposure: No Alcohol intake: never Alcohol use details: rarely Substance use: never Substance use type: does not use Do You Feel Safe in your Home?: Yes Lack of Transportation: No Lack of Food: Never True Current Housing: I Have Housing Concerned About Future Housing: No Difficulty Paying Gas/Electric Bills: No Difficulty Paying for Meds: No Currently Unemployed: No Education: Associate Degree Difficulty w/ Childcare or Family Care: No Living arrangements: with family Additional living arrangements comments: Occupation/Education: occupation 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 Gender identity (if verbalized by the patient): Female Sexual Orientation (if Verbalized by the Patient): Straight or Heterosexual Spiritual care concerns: No Anes - Eval Final PreProcedure Day of Procedure 03/06/25 12:27 Patient weight: normal Lungs: normal air movement Airway: Mallampati scale class II Neurological: alert and oriented Last oral intake: >/= 8 hours ASA classification: II Emergent: no Anesthetic plan: proceed Anesthesia type and monitoring: general GIVS and standard monitoring Results Review: All pre-operative results and documents have been reviewed as part of the pre-operative evaluation. Hyperlipidemia, hx of viraj danlos, EOE, good ET, no cp or sob w 1-2 fos. Informed Consent: The patient's anesthetic plan and its attendant risks and benefits were discussed with the patient/family/POA. Questions were solicited and answers provided to the satisfaction of the patient/family/POA.
--- NOTE | 2025-03-06 12:34 | WPDANESEPPF ---
Anes - Initial Pre Proc Eval Procedure: Operation Date: 03/06/25 13:00 Proposed Procedures p Esophagogastroduodenoscopy EGD - Leandro Cobos MD Date/Time: 03/06/25 12:34 Surgeon: Leandro Cobos MD Pre Op Diagnosis: Dysphagia, unspecified Patient Data Age: 49 Gender: F Height: 1.65 m Weight: 65.8 kg Last Vital Signs Temp 98.8 F 03/06/25 11:59 Pulse 73 03/06/25 11:59 Resp 18 03/06/25 11:59 BP 110/63 03/06/25 11:59 Pulse Ox 100 03/06/25 11:59 O2 Del Method Room Air 03/06/25 11:59 Allergies Allergy/AdvReac Type Severity Reaction Status Date / Time fresh fish AdvReac Intermediate Swelling Uncoded 02/27/25 12:59 of Lip/Tongue/Throat Home Medications ?Medication ?Instructions ?Recorded ?Confirmed ?Type L.acidop,casei,lactis,rham-B.lact,mariam 1 cap PO DAILY 07/04/21 03/06/25 History 625 mg (10 billion cell) capsule (Advanced Probiotic) rosuvastatin 20 mg tablet 20 mg PO DAILY 07/04/21 03/06/25 History cetirizine 5 mg tablet 10 mg PO DAILY 06/08/23 03/06/25 History duloxetine 30 mg capsule,delayed 30 mg PO BID 12/16/23 03/06/25 History release (Cymbalta) tolterodine 4 mg capsule,extended 4 mg PO DAILY #90 caps 07/24/24 03/06/25 Rx release 24 hr (Detrol LA) estradiol 0.5 mg tablet 0.5 mg PO DAILY 90 days #90 tabs 09/28/24 03/06/25 Rx tirzepatide (weight loss) 10 10 mg subcut WEEKLY weight loss 12/11/24 03/06/25 History mg/0.5 mL subcutaneous pen injector (Zepbound) omeprazole 40 mg capsule,delayed 40 mg PO BID 30 days #60 caps 12/26/24 03/06/25 Rx release Patient hx anesthesia problems: none Family hx anesthesia problems: none Results Review: All pre-operative results and documents have been reviewed as part of the pre-operative evaluation. [facility] Past Medical History Medical History Viraj-Danlos disease Fibromyalgia Screening mammogram, encounter for Vitamin D deficiency High cholesterol History of fractured pelvis Seasonal allergies Heart murmur Chronic UTI Surgical History Surgical History History of cholecystectomy (~01/2013) History of total vaginal hysterectomy (TVH) (09/04/04) menometrorrhagia/dysmenorrhea History of tubal ligation (10/12/02) Family History Family History Mother Family history of osteoporosis Patient's mother is in good health Family history of malignant neoplasm of ovary, Onset Age: 36 Family history of lupus erythematosus Grandparent Hypertension Father Family history of eczema Patient's father is in good health Sibling Patient's sister is in good health Family history of allergic disorder Social History Social History Smoking status: Never smoker Second hand tobacco smoke exposure: No Alcohol intake: never Alcohol use details: rarely Substance use: never Substance use type: does not use Do You Feel Safe in your Home?: Yes Lack of Transportation: No Lack of Food: Never True Current Housing: I Have Housing Concerned About Future Housing: No Difficulty Paying Gas/Electric Bills: No Difficulty Paying for Meds: No Currently Unemployed: No Education: Associate Degree Difficulty w/ Childcare or Family Care: No Living arrangements: with family Additional living arrangements comments: Occupation/Education: occupation 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 Gender identity (if verbalized by the patient): Female Sexual Orientation (if Verbalized by the Patient): Straight or Heterosexual Spiritual care concerns: No Anes - Eval Final PreProcedure Day of Procedure 03/06/25 12:34 Patient weight: normal Lungs: normal air movement Airway: Mallampati scale class II Neurological: alert and oriented Last oral intake: >/= 8 hours ASA classification: II Emergent: no Anesthetic plan: proceed Anesthesia type and monitoring: general GIVS and standard monitoring Results Review: All pre-operative results and documents have been reviewed as part of the pre-operative evaluation. Hyperlipidemia, pt denies hx of viraj danlos, hx of EOE and recent EGD 12/25, now for reeval. Informed Consent: The patient's anesthetic plan and its attendant risks and benefits were discussed with the patient/family/POA. Questions were solicited and answers provided to the satisfaction of the patient/family/POA.
--- NOTE | 2025-03-06 13:02 | PM.IMHP ---
H&P: HPI History of Present Illness Date/Time: 03/06/25 13:02 Chief Complaint: Dysphagia-history of eosinophilic esophagitis Narrative: In December this year, patient had EGD showing multiple rings in the esophagus, and a dilatation was made in a stenosis located in the distal esophagus with the balloon 15-18 mm. Biopsy revealed 73 eosinophils per high-power field. She was started on high dose omeprazole, 40 mg b.i.d. and is now here for follow-up EGD, feeling much better. Review of Systems Review of Systems: All systems reviewed & are unremarkable except as noted in HPI and below PMFSH Past Medical History Medical History Viraj-Danlos disease Fibromyalgia Screening mammogram, encounter for Vitamin D deficiency High cholesterol History of fractured pelvis Seasonal allergies Heart murmur Chronic UTI Surgical History Surgical History History of cholecystectomy (~01/2013) History of total vaginal hysterectomy (TVH) (09/04/04) menometrorrhagia/dysmenorrhea History of tubal ligation (10/12/02) Family History Family History Mother Family history of osteoporosis Patient's mother is in good health Family history of malignant neoplasm of ovary, Onset Age: 36 Family history of lupus erythematosus Grandparent Hypertension Father Family history of eczema Patient's father is in good health Sibling Patient's sister is in good health Family history of allergic disorder Social History Social History Smoking status: Never smoker Second hand tobacco smoke exposure: No Alcohol intake: never Alcohol use details: rarely Substance use: never Substance use type: does not use Do You Feel Safe in your Home?: Yes Lack of Transportation: No Lack of Food: Never True Current Housing: I Have Housing Concerned About Future Housing: No Difficulty Paying Gas/Electric Bills: No Difficulty Paying for Meds: No Currently Unemployed: No Education: Associate Degree Difficulty w/ Childcare or Family Care: No Living arrangements: with family Additional living arrangements comments: Occupation/Education: occupation 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 Gender identity (if verbalized by the patient): Female Sexual Orientation (if Verbalized by the Patient): Straight or Heterosexual Spiritual care concerns: No Meds Home Medications and Allergies Home Medications ?Medication ?Instructions ?Recorded ?Confirmed ?Type L.acidop,casei,lactis,rham-B.lact,mariam 1 cap PO DAILY 07/04/21 03/06/25 History 625 mg (10 billion cell) capsule (Advanced Probiotic) rosuvastatin 20 mg tablet 20 mg PO DAILY 07/04/21 03/06/25 History cetirizine 5 mg tablet 10 mg PO DAILY 06/08/23 03/06/25 History duloxetine 30 mg capsule,delayed 30 mg PO BID 12/16/23 03/06/25 History release (Cymbalta) tolterodine 4 mg capsule,extended 4 mg PO DAILY #90 caps 07/24/24 03/06/25 Rx release 24 hr (Detrol LA) estradiol 0.5 mg tablet 0.5 mg PO DAILY 90 days #90 tabs 09/28/24 03/06/25 Rx tirzepatide (weight loss) 10 10 mg subcut WEEKLY weight loss 12/11/24 03/06/25 History mg/0.5 mL subcutaneous pen injector (Zepbound) omeprazole 40 mg capsule,delayed 40 mg PO BID 30 days #60 caps 12/26/24 03/06/25 Rx release Allergies Allergy/AdvReac Type Severity Reaction Status Date / Time fresh fish AdvReac Intermediate Swelling Uncoded 02/27/25 12:59 of Lip/Tongue/Throat Vital Signs Vital Signs - 24 hr 03/06/25 11:59 Temperature 98.8 F Pulse Rate 73 Respiratory Rate 18 Blood Pressure 110/63 Pulse Oximetry 100 Oxygen Delivery Room Air Exam Const: General: cooperative and healthy appearing Resp: Effort & Inspection: normal respiratory effort and able to speak in complete sentences Auscultation: clear to auscultation bilaterally Cardio: Rate: regular rate Rhythm: regular rhythm GI: Inspection: normal to inspection GI Palp: No No hepatosplenomegaly present Auscultation: normal bowel sounds Rectal Exam: deferred Skin: General skin exam: normal color Psych: Appearance: grossly normal Mental Status: mental status grossly normal Assessment and Plan Assessment and plan (1) Eosinophilic esophagitis type 1: Code(s): K20.0 - Eosinophilic esophagitis Status: Acute Assessment and Plan: The patient is deemed a good candidate for the procedure. Consent signed. Will proceed.
--- NOTE | 2025-03-06 13:16 | S_PTH ---
PATIENT: Tiesha Byrnes LOC: [facility] Rae#:[id number] AGE/SX: 49/F ROOM: RE03/06/[address]: Leandro Cobos MD : 1975 BED: DIS: 03/06/2025 SPEC #: [id number] RECD: 03/06/25 13:29 STATUS: ESTELA REJitendra #: [id number] DANGELO: 03/06/25 13:[address]: Leandro Cobos DEPT: [facility] Surgical RECD BY: Maris Rider ENTERED: 03/06/25 13:29 SP TYPE: Surgical OTHR DR: Reinaldo ThibodeauxMD Tissues: A - Esophageal Biopsy Procedures: Hematoxylin and Eosin Stain Gross and Microscopic Level 4
[2025-03-06 13:25] VITALS: BP 107/67; PULSE 88; RESP 24; O2SAT 100
[2025-03-06 13:35] VITALS: BP 106/67; PULSE 67; RESP 18; O2SAT 100
[2025-03-06 13:45] VITALS: BP 119/76; PULSE 61; RESP 20; O2SAT 100
== END 2025-03-06 13:51 | disposition home or self-care (01) ==
PROVIDERS: PCP Internal Medicine; Referring Provider Internal Medicine Gastroenterology; Visit Provider Internal Medicine Gastroenterology
PROC: 0DJ08ZZ Inspection of Upper Intestinal Tract, Via Natural or Artificial Opening Endoscopic (ICD-10-PCS; CPT 43249; principal; 2025-03-06 13:00)
DX: K20.0 Eosinophilic esophagitis (principal); E55.9 Vitamin D deficiency, unspecified; E78.00 Pure hypercholesterolemia, unspecified; Q79.60 Ehlers-Danlos syndrome, unspecified; M79.7 Fibromyalgia; R01.1 Cardiac murmur, unspecified; N39.0 Urinary tract infection, site not specified; Z79.85 Long-term (current) use of injectable non-insulin antidiabetic drugs; Z98.890 Other specified postprocedural states; Z90.49 Acquired absence of other specified parts of digestive tract; Z98.51 Tubal ligation status; Z80.41 Family history of malignant neoplasm of ovary
CPT/HCPCS: 43249; 88305; C1726; J2003; J2704; J7120